=== PATIENT | female | born 1940 | race Caucasian/White ===

== ENCOUNTER 2016-11-22 14:02 | Observation (INO) | payer MEDICARE, OTHER ==
--- NOTE | 2016-11-22 15:00 | ER Document Report ---
ED Medical Screen (RME) - General Chief Complaint: Chest Pain > 30 Stated Complaint: PAIN LEFT ELBOW Notes: This 76-year-old O2 dependent COPD patient comes emergency room complaining of left elbow pain that started yesterday without injury, and anterior inferior chest pain on the breast bone today. The anterior chest pain is made worse with deep breath. Her primary care provider is Dr. Swenson and her automobile carpets molder is Dr. Ayon. On exam the inferior sternum area is tender to palpate. The left elbow radial head seems to be quite tender. There is some swelling and discoloration to the lateral elbow. TRAVEL OUTSIDE OF THE [place] IN LAST 30 DAYS: No - Related Data Allergies/Adverse Reactions: halothane [From Fluothane] Allergy (Severe, Verified 11/22/16 14:19) Severe liver damage ciprofloxacin [From Cipro] Allergy (Intermediate, Verified 11/22/16 14:19) Rash, itch amoxicillin Adverse Reaction (Verified 11/22/16 14:55) Past Medical History - Past Medical History Cardiac Medical History: Reports: Hx Hypertension, Hx Peripheral Vascular Disease Denies: Hx Heart Murmur Pulmonary Medical History: Reports: Hx Asthma, Hx COPD Denies: Hx Respiratory Failure, Hx Sleep Apnea, Hx Tuberculosis Neurological Medical History: Reports: 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) Renal/ Medical History: Denies: Hx Peritoneal Dialysis GI Medical History: Reports: Hx Gastroesophageal Reflux Disease, Hx Hepatitis - FROM [place] Musculoskeltal Medical History: Reports Hx Arthritis - osteo Psychiatric Medical History: Denies: Hx Depression Traumatic Medical History: Reports: Hx Fractures - RIGHT HAND Infectious Medical History: Reports: Hx Hepatitis - FROM [place] Past Surgical History: Reports: Hx Appendectomy, Hx Cholecystectomy, Hx Hysterectomy, Hx Urinary Tract Surgery - Bladder tack, Hx Vascular Surgery - Angioplasty left leg - Immunizations Immunizations up to date: Yes Hx Diphtheria, Pertussis, Tetanus Vaccination: Yes Physical Exam - Vital signs Vitals: Temp Pulse Resp BP Pulse Ox 98.3 F 93 20 171/80 H 93 11/22/16 14:21 11/22/16 14:21 11/22/16 14:21 11/22/16 14:21 11/22/16 14:21 Course - Vital Signs Vital signs: Temp Pulse Resp BP Pulse Ox 98.3 F 93 20 171/80 H 93 11/22/16 14:21 11/22/16 14:21 11/22/16 14:21 11/22/16 14:21 11/22/16 14:21
[2016-11-22 15:33] LABS: ABSOLUTE BASOPHILS # (AUTO) 0.1 10^3/uL (0.0-0.2); ABSOLUTE EOSINOPHILS # (AUTO) 0.1 10^3/uL (0.0-0.6); ABSOLUTE LYMPHOCYTES (AUTO) 0.9 10^3/uL (0.5-4.7); ABSOLUTE MONOCYTES (AUTO) 1.3 10^3/uL (0.1-1.4); ABSOLUTE NEUT (AUTO) 14.4 10^3/uL (1.7-8.2); BASOPHILS % (AUTO) 0.4 % (0-2); EOSINOPHILS % (AUTO) 0.7 % (0-6); HEMATOCRIT 37.6 % (36.0-47.0); HEMOGLOBIN 12.3 g/dL (12.0-15.5); HGB HCT DIFFERENCE -0.7; LYMPHOCYTES % (AUTO) 5.2 % (13-45); MEAN CORPUSCULAR HEMOGLOBIN 32.6 pg (27.0-33.4); MEAN CORPUSCULAR HGB CONC 32.8 g/dL (32.0-36.0); MEAN CORPUSCULAR VOLUME 99 fl (80-97); MONOCYTES % (AUTO) 7.6 % (3-13); RED BLOOD COUNT 3.78 10^6/uL (3.72-5.28); RED CELL DISTRIBUTION WIDTH 12.3 % (11.5-14.0); SEGMENTED NEUTROPHILS % (AUTO) 86.1 % (42-78); WHITE BLOOD COUNT 16.7 10^3/uL (4.0-10.5)
[2016-11-22 15:38] LABS: APPEARANCE,URINE CLEAR; BILIRUBIN,URINE NEGATIVE (NEGATIVE); GLUCOSE, URINE NEGATIVE (NEGATIVE); KETONES,URINE NEGATIVE (NEGATIVE); LEUKOCYTE ESTERASE,URINE NEGATIVE (NEGATIVE); NITRITE,URINE NEGATIVE (NEGATIVE); PROTEIN,URINE NEGATIVE (NEGATIVE); URINE SPECIFIC GRAVITY 1.004; UROBILINOGEN,URINE NEGATIVE mg/dL (<2.0)
[2016-11-22 15:44] LABS: ALANINE AMINOTRANSFERASE 41 U/L (9-52); ALBUMIN 4.4 g/dL (3.5-5.0); ALKALINE PHOSPHATASE 80 U/L (38-126); ANION GAP 12 (5-19); ASPARTATE AMINO TRANSFERASE 33 U/L (14-36); BILIRUBIN,DIRECT 0.1 mg/dL (0.0-0.4); BILIRUBIN,TOTAL 0.4 mg/dL (0.2-1.3); BLOOD UREA NITROGEN 26 mg/dL (7-20); CALCIUM 9.6 mg/dL (8.4-10.2); CARBON DIOXIDE 35 mmol/L (22-30); CHLORIDE 96 mmol/L (98-107); CREATINE KINASE 92 U/L (30-135); CREATININE RESULT 0.74 mg/dL (0.52-1.25); GLUCOSE 89 mg/dL (75-110); POTASSIUM 4.7 mmol/L (3.6-5.0); SODIUM 142.7 mmol/L (137-145)
[2016-11-22 15:56] LABS: CREATINE KINASE MB 7.38 ng/mL (<4.55)
[2016-11-22 16:11] LABS: TROPONIN I 0.059 ng/mL
--- NOTE | 2016-11-22 16:11 | ER Document Report ---
ED Cardiac - General Chief Complaint: Chest Pain > 30 Stated Complaint: PAIN LEFT ELBOW Mode of Arrival: Ambulatory Information source: Patient TRAVEL OUTSIDE OF THE [place] IN LAST 30 DAYS: No - HPI Patient complains to provider of: Chest pain, Other - Left elbow pain Notes: Patient also complains of left elbow pain for the last 2 days. She states that she had no injury has pain in the left elbow worse with any sort of movement. She denies any redness, fever, swelling. She denies any numbness tingling or weakness down the arm. Patient also states that she's had substernal chest pain that sharp worse with deep breath that started earlier today. She does report feeling slightly more short of breath than normal. The patient has an extensive history with COPD she is currently on continuous O2. She has a history of CAD as well as mitral valve prolapse/regurg. She tells me that she saw , her top bottom attaching machine operator yesterday for follow-up for a previous stress test. Stress test was abnormal, therefore they are going to be sending her to another facility to have a cardiac catheter performed. No leg pain or swelling at this time. She denies any history of DVT or PE. She is not on blood thinners at this time. She has a history of paroxysmal intermittent atrial fibrillation, she is currently in sinus. No fever or cough. - Related Data Allergies/Adverse Reactions: halothane [From Fluothane] Allergy (Severe, Verified 11/22/16 14:19) Severe liver damage ciprofloxacin [From Cipro] Allergy (Intermediate, Verified 11/22/16 14:19) Rash, itch amoxicillin Adverse Reaction (Verified 11/22/16 14:55) Past Medical History - Social History Smoking Status: Unknown if Ever Smoked Family History: Malignancy - FATHER HAD LUNG CANCER, Other - SIB AND CHILD WITH ASTHMA Patient has suicidal ideation: No Patient has homicidal ideation: No - Past Medical History Cardiac Medical History: Reports: Hx Hypertension, Hx Peripheral Vascular Disease Denies: Hx Heart Murmur Pulmonary Medical History: Reports: Hx Asthma, Hx COPD Denies: Hx Respiratory Failure, Hx Sleep Apnea, Hx Tuberculosis Neurological Medical History: Reports: 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) Renal/ Medical History: Denies: Hx Peritoneal Dialysis GI Medical History: Reports: Hx Gastroesophageal Reflux Disease, Hx Hepatitis - FROM [place] Musculoskeltal Medical History: Reports Hx Arthritis - osteo Psychiatric Medical History: Denies: Hx Depression Traumatic Medical History: Reports: Hx Fractures - RIGHT HAND Infectious Medical History: Reports: Hx Hepatitis - FROM [place] Past Surgical History: Reports: Hx Appendectomy, Hx Cholecystectomy, Hx Hysterectomy, Hx Urinary Tract Surgery - Bladder tack, Hx Vascular Surgery - Angioplasty left leg - Immunizations Immunizations up to date: Yes Hx Diphtheria, Pertussis, Tetanus Vaccination: Yes Hx Pneumococcal Vaccination: 05/20/08 Review of Systems - Review of Systems -: Yes All other systems reviewed and negative Physical Exam - Vital signs Vitals: Temp Pulse Resp BP Pulse Ox 98.3 F 93 20 171/80 H 93 11/22/16 14:21 11/22/16 14:21 11/22/16 14:21 11/22/16 14:21 11/22/16 14:21 - General General appearance: Appears well, Alert - HEENT Head: Normocephalic, Atraumatic Eyes: Normal Pupils: PERRL Ears: Normal Mouth/Lips: Normal Mucous membranes: Normal - Respiratory Respiratory status: No respiratory distress Breath sounds: Wheezing - Few scattered expiratory. No: Rhonchi, Stridor Chest palpation: Normal - Cardiovascular Rhythm: Regular Heart sounds: Normal auscultation Murmur: No Normal capillary refill: Yes - Abdominal Inspection: Normal Distension: No distension Bowel sounds: Normal Tenderness: Nontender Organomegaly: No organomegaly - Back Back: Normal, Nontender - Extremities General upper extremity: Normal inspection, Nontender, Normal color, Normal ROM , Normal temperature General lower extremity: Normal inspection, Nontender, Normal color, Normal ROM , Normal temperature, Normal weight bearing. No: Tender, Edema - Neurological Neuro grossly intact: Yes Cognition: Normal Orientation: AAOx4 Marco Coma Scale Eye Opening: Spontaneous Marco Coma Scale Verbal: Oriented Marco Coma Scale Motor: Obeys Commands [place] Coma Scale Total: 15 Speech: Normal Motor strength normal: LUE, RUE, LLE, RLE Sensory: Normal - Psychological Associated symptoms: Normal affect, Normal mood - Skin Skin Temperature: Warm Skin Moisture: Dry Skin Color: Normal Course - Re-evaluation Re-evalutation: 11/22/16 18:[address] Lehman the patient's top bottom attaching machine operator. He would like a nitroglycerin trial here, and would like the patient admitted to the hospitalist for rule out. Patient will be given nitroglycerin at this time, have attempted to contact the hospitalist, at this time they are not taking admissions in the night hospitalist will contact me after 7 PM. 11/22/16 19:[address] Vences the hospitalist, he reviewed the patient's case and has accepted her as an admission. She will be admitted to telemetry arms for chest pain rule out. She remains stable at this time. - Vital Signs Vital signs: Temp Pulse Resp BP Pulse Ox 98.3 F 93 20 171/80 H 93 11/22/16 14:21 11/22/16 14:21 11/22/16 14:21 11/22/16 14:21 11/22/16 14:21 - Laboratory Result Diagrams: 11/22/16 15:15 11/22/16 15:15 Laboratory results interpreted by me: 11/22/16 11/22/16 11/22/16 15:15 15:15 15:15 WBC 16.7 H MCV 99 H Seg Neutrophils % 86.1 H Lymphocytes % 5.2 L Absolute Neutrophils 14.4 H D-Dimer Chloride 96 L Carbon Dioxide 35 H BUN 26 H CK-MB (CK-2) 7.38 H NT-Pro-B Natriuret Pep 11/22/16 11/22/16 15:15 15:15 WBC MCV Seg Neutrophils % Lymphocytes % Absolute Neutrophils D-Dimer 0.75 H Chloride Carbon Dioxide BUN CK-MB (CK-2) NT-Pro-B Natriuret Pep 3950 H - EKG Interpretation by Wi EKG shows normal: Sinus rhythm Rate: Normal [place]/QRS: RBBB, LPHB/LPFB When compared to previous EKG there are: No significant change Discharge - Discharge Clinical Impression: Shortness of breath Chest pain Qualifiers: Chest pain type: unspecified Qualified Code(s): R07.9 - Chest pain, unspecified Condition: Stable Disposition: ADMITTED OBSERVATION Admitting Provider: Vangie Unit Admitted: Telemetry
[2016-11-22] MEDS ORDERED: NITROGLYCERIN 0.4 MG/TAB 25 TAB/BOTTLE SL PRN (18:29)
[2016-11-22] MEDS ORDERED: ASPIRIN 81 MG TABLET, CHEWABLE PO ONE (18:29)
[2016-11-22] MEDS ORDERED: IPRATROPIUM/ALBUTEROL 0.5-2.5 MG/3 ML AMPUL NEB ONE (18:54)
[2016-11-22] MEDS ORDERED: IPRATROPIUM/ALBUTEROL 0.5-2.5 MG/3 ML AMPUL NEB PRN (20:45)
[2016-11-22] MEDS ORDERED: ACETAMINOPHEN 325 MG TABLET PO PRN (20:52)
[2016-11-22] MEDS ORDERED: PREDNISONE 5 MG TABLET PO ONE (21:00)
--- NOTE | 2016-11-22 21:10 | PDOC H&P ---
History of Present Illness Admission Date/PCP: 11/22/16 20:[address] Gabo SINGH Patient complains of: lt elbow pain, cp History of Present Illness: MIKEL CHOPRA is a 76 year old female, with known peripheral vascular disease, having undergone right lower extremity angioplasty, cerebrovascular disease, having undergone previous right carotid endarterectomy, and with a recent abnormal stress test, with supervisor insecticide reportedly planning in the near future to send patient for heart catheterization, who presents to the emergency room for evaluation of a 2 day history of intermittent mild left elbow pain, worse with any movement. No pain at present. No trauma to joint. Also noted the onset of lower substernal sharp chest pain earlier today, worse with deep breath. No fever or cough. No history of DVT or pulmonary embolus. Prior to my being called, the emergency room physician did discuss with her supervisor insecticide, who agreed it patient should be placed in observation bed for chest pain rule out protocol. 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 No obstructive sleep apnea. Chronic mild intermittent back pain, without recent change in same. Patient has been discussed with emergency room physician who evaluated the patient. . Laboratory results are listed in [facility] and are reviewed. X-ray summary results are listed below, with full report(s) reviewed. . EKG reviewed. And compared to tracing from June 14 of last year. Social history/personal habits: . Lives with son. Retired. No tobacco use for 6 years. No alcohol or illicit drug use. Allergies/adverse reactions are listed in [facility] and are reviewed. Home medications Home medications initially autopopulated into Seen may not accurately reflect patient's true medications, dosages, and/or frequencies. Unfortunately, patient uncertain of all her medications/dosages/frequencies. REVIEW OF SYSTEMS: Constitutional: No fever or chills. Eyes: Wears glasses. ENT: No swallowing problems or complaints. No hearing problems or complaints. Pulmonary: See history and present illness. Cardiovascular: See history and present illness. Gastrointestinal: No current complaints, including nausea or vomiting. Skin: No current complaints, including rashes. Hematologic: Easy bruising. Neurologic: No current complaints, including numbness or tingling. Musculoskeletal: See history and present illness. Joint pain from arthritis. Psychiatric: Mild Anxiety Endocrine: No current complaints, including polyuria. Genitourinary: No current complaints, including dysuria. PHYSICAL EXAMINATION: 5 feet 2 inches tall. 44.8 kg. BMI 18.1 kg/m. Temperature 98.3. Blood pressure 198/86. Pulse 92 and regular. 99% saturation on 2 L oxygen per nasal cannula. Thin otherwise well-developed though chronically ill-appearing female who appears perhaps a bit older than her stated age. Smiling pleasant awake alert and cooperative. No obvious distress other than perhaps mildly anxious. Skin is warm and dry. No grossly obvious evidence of rash in areas of skin examined. No subcutaneous nodules palpated. Scattered mild subcutaneous ecchymoses on upper extremities. ENT: Hearing grossly normal to normal conversation. Tongue midline on protrusion pink and slightly moist. Eyes: No scleral icterus. Pupils equal and reactive to light at 4 mm. [place] conjunctivae. Neck is supple and nontender to gentle active range of motion and palpation. Midline trachea. No palpable thyroid nodule mass enlargement or tenderness. Lymphatic: No palpable cervical or clavicular nodes. Neck and lymphatic exams limited by patient body habitus. Psychiatric: Reasonable insight into acute and chronic medical issues. Oriented to time location and why here. Lungs: Auscultation reveals clear and equal breath sounds bilaterally. No use of accessory respiratory muscles. Cardiovascular: Heart regular rate and rhythm, without gallop murmur or rub. No carotid or abdominal aortic bruits. No ankle or pedal edema. Faintly palpable dorsalis pedis pulses. Abdomen: soft, slightly, distended nontender with positive bowel sounds. Unable to adequately evaluate abdomen for masses or organomegaly due to distention. Upper abdominal compression does not reproduce her lower substernal chest pain, but compression of her lower medial anterior right chest wall does. Extremities: Feet are warm and dry. No calf tenderness to compression. No grossly obvious visual evidence of calf swelling. Gentle manipulation of lower extremities fails to reveal any obvious evidence of injury or instability to knees hips or ankles. Gentle active range of motion of left elbow reveals only minimal discomfort. No outward evidence of effusion. Neurologic: Moves upper extremities grossly normally. Patellar reflexes absent. Absent Babinski. Light touch is intact at feet. Dorsiflexion and plantarflexion of feet 5 / 5 and symmetric. Past Medical History Cardiac Medical History: Reports: Hypertension, Peripheral Vascular Disease, Other - Cerebrovascular disease, status post right carotid endarterectomy. Denies: DVT, Myocardial Infarction, Hyperlipidema, Pulmonary Embolism, Heart Murmur Pulmonary Medical History: Reports: Asthma, Chronic Obstructive Pulmonary Disease (COPD) Denies: Respiratory Failure, Sleep Apnea, Tuberculosis Neurological Medical History: Reports: Other - History of TIA. Denies: Hemorrhagic CVA, Ischemic CVA, Seizures Endocrine Medical History: Denies: Diabetes Mellitus Type 1, Diabetes Mellitus Type 2, Hyperthyroidism, Hypothyroidism Renal/ Medical History: Reports: Other - Occasional urinary tract infection. GI Medical History: Reports: Gastroesophageal Reflux Disease, Hepatitis - FROM [place] Denies: Cirrhosis Musculoskeltal Medical History: Reports: Arthritis - osteo Skin Medical History: Reports: None Psychiatric Medical History: Reports: General Anxiety Disorder Denies: Alcohol Dependency, Depression, Substance Abuse, Tobacco Dependency Hematology: Reports: Anemia, Other - Easy bruising. Denies: Hemophilia, Sickle Cell Disease Infectious Medical History: Reports: Clostridium Difficile - History of Denies: Methicillin-Resistant Staph Aureus Past Surgical History Past Surgical History: Reports: Appendectomy, Carotid Endarterectomy - Right, Cholecystectomy, Hysterectomy, Vascular Surgery - Angioplasty right leg Denies: Amputation Social History Information Source: Patient, Emergency Med Personnel, [facility] Records Lives with: Family Smoking Status: Former Smoker Frequency of Alcohol Use: None Hx Recreational Drug Use: No Drugs: None Hx Prescription Drug Abuse: No - Advance Directive Resuscitation Status: Do Not Resuscitate - Implications of DO NOT RESUSCITATE/ DO NOT INTUBATE status discussed with [patient]. Discussed in layperson's terms. Implications understood. [ Patient ] is the health care decision maker. [Patient] conversation is lucid and appropriate. [Patient] desires DO NOT RESUSCITATE/DO NOT INTUBATE status. Will honor [patient] wishes. Surrogate healthcare decision maker:: Son Family History Family History: Malignancy - FATHER HAD LUNG CANCER, Other - SIB AND CHILD WITH ASTHMA Parental Family History Reviewed: Yes Children Family History Reviewed: Yes Sibling(s) Family History Reviewed.: Yes Medication/Allergy Home Medications: Lisinopril 10 mg PO BID 08/14/13 Multivitamin [Multivitamins] 1 tab PO DAILY 08/14/13 Sennosides/Docusate Sodium [Eql Stool Softener-Stim Lax Tb] 1 tab PO DAILY PRN 08/14/13 Albuterol Sulfate [Proair HFA] 2 puff IH Q4 PRN 05/26/14 Budesonide/Formoterol Fumarate [Symbicort HFA 160-4.5 mcg Inhaler 6 gm] 2 puff IH Q12 05/26/14 Codeine/Carisoprodol/Aspirin [Sflfkxdozswk-Kewdyav-Jkwnue Tb] 1 tab PO Q6H PRN 05/26/14 Loratadine [Claritin] 10 mg PO DAILY 06/06/14 Ipratropium/Albuterol Sulfate [Duoneb 3 ml Ampul] 3 ml NEB RTQID 10/24/15 Febuxostat [Uloric 40 mg Tablet] 40 mg PO DAILY 03/02/16 Nystatin [Mycostatin 745358 Unit/1 ml Susp 60 ml Btl] 1 ml PO QID 03/02/16 Alprazolam [Xanax 0.25 mg Tablet] 0.25 mg PO Q12HP PRN #20 tablet 03/05/16 Diltiazem HCl [Cardizem Cd 120 mg Capsule] 120 mg PO DAILY #30 cap.sr.24h Levofloxacin [Levaquin 500 mg Tablet] 500 mg PO DAILY #6 tablet 03/05/16 Diltiazem HCl [Diltiazem 24Hr Cd] 120 mg PO DAILY 04/20/16 Acetaminophen [Tylenol 325 mg Tablet] 650 mg PO Q4HP PRN tablet 04/22/16 Azithromycin [Zithromax 250 mg Tablet] 250 mg PO DAILY #5 tablet 04/22/16 Ipratropium/Albuterol Sulfate [Duoneb 3 ml Ampul] 3 ml [facility] RTQ4HP PRN #30 vial.neb 04/22/16 Ipratropium/Albuterol Sulfate [Duoneb 3 ml Ampul] 3 ml [facility] RTQ4HP PRN #30 vial.neb 04/22/16 Prednisone [Deltasone 20 mg Tablet] 20 mg PO ASDIR PRN #8 tablet 04/22/16 Pantoprazole Sodium [Protonix] 40 mg PO DAILY #30 tablet. 07/05/16 Allergies/Adverse Reactions: halothane [From Fluothane] Allergy (Severe, Verified 11/22/16 14:19) Severe liver damage ciprofloxacin [From Cipro] Allergy (Intermediate, Verified 11/22/16 14:19) Rash, itch amoxicillin Adverse Reaction (Verified 11/22/16 14:55) Physical Exam Vital Signs: Temp Pulse Resp BP Pulse Ox 98.3 F 93 17 173/80 H 98 11/22/16 14:21 11/22/16 14:21 11/22/16 20:16 11/22/16 20:16 11/22/16 20:16 Results Impressions: Chest X-Ray 11/22/16 14:45 IMPRESSION: No acute infiltrates. No pleural effusion or pneumothorax. Cardiomegaly T9 and T12 subacute compression deformities Elbow X-Ray 11/22/16 14:45 IMPRESSION: NEGATIVE STUDY OF THE LEFT ELBOW. NO RADIOGRAPHIC EVIDENCE OF ACUTE INJURY. Chest/Abdomen CTA 11/22/16 16:53 IMPRESSION: NO PULMONARY EMBOLI. ACUTE/ SUBACUTE T12 VERTEBRAL BODY COMPRESSION FRACTURE AND CHRONIC APPEARING T9 VERTEBRAL BODY COMPRESSION FRACTURE NOT PRESENT ON PRIOR CT. CORRELATE WITH BACK PAIN. ADDITIONAL CHRONIC CHANGES ABOVE. Assessment & Plan - Diagnosis (1) Abnormal stress test Is this a current diagnosis for this admission?: Yes (2) DNR (do not resuscitate) Is this a current diagnosis for this admission?: Yes (3) Left elbow pain Is this a current diagnosis for this admission?: YesPlan: Does not appear to be clinically significant. When necessary pain medication. (4) Leukocytosis Qualifiers: Leukocytosis type: unspecified Qualified Code(s): D72.829 - Elevated white blood cell count, unspecified Plan: Uncertain source or significance. Repeat CBC with differential. (5) Precordial chest pain Is this a current diagnosis for this admission?: YesPlan: Likely musculoskeletal, but given patient's recent abnormal stress test, and per emergency room physician discussion with her supervisor insecticide a short time ago, Patient will be placed in observation bed under chest pain protocol. Patient understands to notify staff should chest pain recur in particular, if a different type chest pain develops. Serial [troponin's] . Repeat EKG. lipid panel. [I have strongly encouraged patient not to get out of bed without notifying staff, to avoid a fall with injury.] Knee high SCDs for DVT prophylaxis. [Along with subcutaneous [heparin]]. Impression and plans were discussed with [patient], who concurs. Time spent in evaluation and management of patient: 61 minutes. (6) COPD (chronic obstructive pulmonary disease) Qualifiers: Chronic bronchitis type: unspecified Is this a current diagnosis for this admission?: YesPlan: No evidence of exacerbation of same.Resume home medications as appropriate once these have been determined and reviewed. When necessary Nae's. (7) Oxygen dependent Is this a current diagnosis for this admission?: Yes (8) Steroid dependent Is this a current diagnosis for this admission?: Yes
[2016-11-22] MEDS: OXYCODONE HCL IR 5 MG TABLET PO PRN (22:01)
[2016-11-23] MEDS: HEPARIN SOD (PORCINE) 5,000 UNIT/ML 1 ML SYRINGE SUBCUT SCH ×2 (02:55→09:16)
[2016-11-23 03:37] LABS: ABSOLUTE BASOPHILS # (AUTO) 0.1 10^3/uL (0.0-0.2); ABSOLUTE EOSINOPHILS # (AUTO) 0.2 10^3/uL (0.0-0.6); ABSOLUTE MONOCYTES (AUTO) 1.4 10^3/uL (0.1-1.4); BASOPHILS % (AUTO) 0.4 % (0-2); EOSINOPHILS % (AUTO) 1.1 % (0-6); HEMATOCRIT 36.9 % (36.0-47.0); HEMOGLOBIN 12.2 g/dL (12.0-15.5); HGB HCT DIFFERENCE -0.3; LYMPHOCYTES % (AUTO) 5.4 % (13-45); MEAN CORPUSCULAR HEMOGLOBIN 32.8 pg (27.0-33.4); MEAN CORPUSCULAR HGB CONC 33.2 g/dL (32.0-36.0); MEAN CORPUSCULAR VOLUME 99 fl (80-97); MONOCYTES % (AUTO) 7.8 % (3-13); RED BLOOD COUNT 3.73 10^6/uL (3.72-5.28); RED CELL DISTRIBUTION WIDTH 12.1 % (11.5-14.0); SEGMENTED NEUTROPHILS % (AUTO) 85.3 % (42-78); WHITE BLOOD COUNT 17.6 10^3/uL (4.0-10.5)
[2016-11-23 03:48] LABS: CHOLESTEROL 230.95 mg/dL (0-200); Direct HDL 94 mg/dL (>40); TRIGLYCERIDES 150 mg/dL (<150)
[2016-11-23 04:00] LABS: DIRECT LDL 100 mg/dL (<100)
[2016-11-23] MEDS: OXYCODONE HCL IR 5 MG TABLET PO PRN (08:02)
[2016-11-23 08:55] VITALS: BP 179/85
[2016-11-23] MEDS ORDERED: ASPIRIN 81 MG TABLET, ENT COATED PO SCH (10:00)
[2016-11-23] MEDS ORDERED: DOCUSATE SODIUM 100 MG CAPSULE PO SCH (10:00)
[2016-11-23] MEDS ORDERED: PREDNISONE 5 MG TABLET PO SCH (10:00)
--- NOTE | 2016-11-23 15:44 | EKG REPORT ---
SEVERITY:- ABNORMAL ECG - SINUS RHYTHM IRBBB AND LPFB : Confirmed by: Belkys Freitas MD 23-Nov-2016 15:42:44
--- NOTE | 2016-11-23 15:44 | EKG REPORT ---
SEVERITY:- ABNORMAL ECG - SINUS RHYTHM ATRIAL PREMATURE COMPLEX IVCD, CONSIDER ATYPICAL RBBB PROBABLE ANTEROSEPTAL INFARCT, AGE INDETERM : Confirmed by: Belkys Freitas MD 23-Nov-2016 15:42:36
--- NOTE | 2016-11-23 15:55 | PDOC DISCHARGE SUMMARY ---
General - Admit/Disc Date/PCP Admission Date/Primary Care Provider: 11/22/16 20:50 ELIECER RAMIREZ MD Discharge Date: 11/23/16 - Discharge Diagnosis (1) Precordial chest pain Is this a current diagnosis for this admission?: YesSummary: Her pain is completely reproducible on exam with palpation and deep inspiration. Her cardiac markers are flat and under the threshold for acute MN. Her EKG shows no ischemic changes, in fact no change when compared to prior EKGs as far back as 2015. CT scan showed an acute or subacute T12 20% compression fracture that may contribute to some of her symptoms as well. I believe this is musculoskeletal in nature and she could be safely discharged back in the care of her primary care provider. She is in agreement with this treatment plan. She expresses no concerns to [facility] today about going home. (2) Abnormal stress test Is this a current diagnosis for this admission?: YesSummary: Dr. Beck is managing this as an outpatient, considering referral to his colleagues at [facility] for elective heart at some point in the near future. We'll defer to his expertise in this matter. (3) Left elbow pain Is this a current diagnosis for this admission?: YesSummary: Likely arthritic pain and unrelated to the above. Follow-up with PCP in one week. - Additional Information Resuscitation Status: Do Not Resuscitate - Implications of DO NOT RESUSCITATE/ DO NOT INTUBATE status discussed with [patient]. Discussed in layperson's terms. Implications understood. [ Patient ] is the health care decision maker. [Patient] conversation is lucid and appropriate. [Patient] desires DO NOT RESUSCITATE/DO NOT INTUBATE status. Will honor [patient] wishes. Discharge Diet: Cardiac Discharge Activity: Activity As Tolerated, Slowly Increase Activity Home Medications: Acetaminophen [Tylenol 325 mg Tablet] 650 mg PO Q4HP PRN 11/23/16 Albuterol Sulfate [Proair Hfa] 2 puff IH Q4HP PRN 11/23/16 Budesonide/Formoterol Fumarate [Symbicort Hfa 160-4.5 Mcg Inhaler 6 gm] 2 puff IH Q12 11/23/16 Furosemide [Lasix] 20 mg PO DAILY 11/23/16 Hydrocodone/Acetaminophen [[place]adelia 5-325 mg Tablet] 1 tab PO Q8HP PRN 11/23/16 Ipratropium/Albuterol Sulfate [Duoneb 3 ml Ampul] 3 ml NEB RTQID 11/23/16 Lisinopril [Prinivil 10 mg Tablet] 10 mg PO QHS 11/23/16 Loratadine [Claritin 10 mg Tablet] 10 mg PO DAILY 11/23/16 Metoprolol Succinate [Toprol Xl 50 mg Tab.sr] 50 mg PO DAILY 11/23/16 Multivitamin [Daily Multiple Vitamin] 1 each PO DAILY 11/23/16 Pantoprazole Sodium [Protonix] 40 mg PO DAILY 11/23/16 Prednisone [Deltasone 5 mg Tablet] 5 mg PO BID 11/23/16 Sennosides/Docusate 8.6-50 mg [Senna Plus Tablet] 1 tab PO DAILYP PRN 11/23/16 Spironolactone [Aldactone 25 mg Tablet] 25 mg PO DAILY 11/23/16 History of Present Illness Patient complains of: Left elbow pain and precordial chest pain History of Present Illness: MIKEL CHOPRA is a 76 year old female presents to the emergency room for evaluation of a 2 day history of intermittent mild left elbow pain, worse with any movement. Hospital Course Hospital Course: MIKEL CHOPRA is a 76 year old female, with known peripheral vascular disease, having undergone right lower extremity angioplasty, cerebrovascular disease, having undergone previous right carotid endarterectomy, and with a recent abnormal stress test, with oil dispenser reportedly planning in the near future to send patient for heart catheterization, who presents to the emergency room for evaluation of a 2 day history of intermittent mild left elbow pain, worse with any movement. No pain at present. No trauma to joint. Also noted the onset of lower substernal sharp chest pain earlier today, worse with deep breath. No fever or cough. No history of DVT or pulmonary embolus. Prior to my being called, the emergency room physician did discuss with her oil dispenser, who agreed it patient should be placed in observation bed for chest pain rule out protocol. 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 No obstructive sleep apnea. Chronic mild intermittent back pain, without recent change in same. Evaluation failed to reveal any evidence of acute myocardial ischemia, serial cardiac enzymes were nondiagnostic, repeat EKGs were unchanged from previous and perhaps most importantly her symptoms are completely reproducible on exam and with deep inspiration argue against cardiac ischemia. 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 She is already being followed and managed by her primary oil dispenser as an outpatient and closely followed by her PCP, as I see no clear clinical evidence to support myocardial ischemia and a strong suspicion for musculoskeletal source I believe she is stable for discharge home. All of her findings were discussed at the bedside and she asked several excellent questions answered to the best of my ability, she is in agreement with the treatment plan to go home and expresses no concerns about doing so at this time. Physical Exam Vital Signs: Temp Pulse Resp BP Pulse Ox 98.2 F 86 20 179/85 H 97 11/23/16 10:10 11/23/16 10:10 11/23/16 10:10 11/23/16 10:10 11/23/16 10:10 Intake & Output 11/22/16 11/23/16 11/24/16 06:59 06:59 06:59 Intake Total 6 240 Output Total 500 100 Balance -494 140 EXAM GENERAL: NAD; well developed, thin; alert and oriented to person, place, time, situation HEENT: normocephalic, atraumatic; no conjunctival injection, no scleral icterus ; oral mucosa moist; RESPIRATORY: no accessory muscle use, no increased WOB, good air entry bilaterally; no wheezes, rales, rhonchi; bilateral inspiratory crackles CARDIO: no JVD; no systolic murmur; no tachycardia; xiphoid process distal portion of the sternum tender to palpation GI: soft; nondistended; normal bowel sounds; no rebound, rigidity, guarding; no tenderness to palpation of the epigastrium VASCULAR: no abdominal bruit; no pallor; 2+ radial; normal capillary refill EXTREMITIES: no calf tender; no palpable cords in calf; no clubbing, cyanosis , pedal edema PSYCH: normal affect, normal mood SKIN: warm; moist; no petechiae; no telengectasias; no jaundice; Results Laboratory Results: 11/23/16 03:15 11/23/16 11/23/16 03:15 03:15 WBC 17.6 H RBC 3.73 Hgb 12.2 Hct 36.9 MCV 99 H MCH 32.8 MCHC 33.2 RDW 12.1 Plt Count 263 Seg Neutrophils % 85.3 H Lymphocytes % 5.4 L Monocytes % 7.8 Eosinophils % 1.1 Basophils % 0.4 Absolute Neutrophils 15.0 H Absolute Lymphocytes 1.0 Absolute Monocytes 1.4 Absolute Eosinophils 0.2 Absolute Basophils 0.1 Triglycerides 150 Cholesterol 230.95 H LDL Cholesterol Direct 100 VLDL Cholesterol 30.0 HDL Cholesterol 94 11/22/16 11/23/16 21:05 03:15 Troponin I 0.067 0.066 Impressions: Chest X-Ray 11/22/16 14:45 IMPRESSION: No acute infiltrates. No pleural effusion or pneumothorax. Cardiomegaly T9 and T12 subacute compression deformities Elbow X-Ray 11/22/16 14:45 IMPRESSION: NEGATIVE STUDY OF THE LEFT ELBOW. NO RADIOGRAPHIC EVIDENCE OF ACUTE INJURY. Chest/Abdomen CTA 11/22/16 16:53 IMPRESSION: NO PULMONARY EMBOLI. ACUTE/ SUBACUTE T12 VERTEBRAL BODY COMPRESSION FRACTURE AND CHRONIC APPEARING T9 VERTEBRAL BODY COMPRESSION FRACTURE NOT PRESENT ON PRIOR CT. CORRELATE WITH BACK PAIN. ADDITIONAL CHRONIC CHANGES ABOVE. Qualifiers PATEINT BEING DISCHARGED WITH ANY OF THE FOLLOWING DIAGNOSIS?: No VTE patient discharged on overlapping Therapy?: No Reason(s) for not prescribing Overlap Therapy:: Not indicated Plan Discharge Plan: Discharge home and follow-up with PCP and primary oil dispenser in 1 week for further recommendations. Return to the emergency department for escalating symptoms. Time Spent: Greater than 30 Minutes
== END 2016-11-23 11:34 | disposition home or self-care (01) ==
LOC: ER 14:02 → EH 20:08 → UNDOADMOB 20:08 → EH 20:50 → 4S 23:30
PROVIDERS: ADMIT Family Medicine; ATTEND Family Medicine
DX: R07.2 Precordial pain (principal); D72.829 Elevated white blood cell count, unspecified; R94.39 Abnormal result of other cardiovascular function study; M25.522 Pain in left elbow; I73.9 Peripheral vascular disease, unspecified; J44.9 Chronic obstructive pulmonary disease, unspecified; I10 Essential (primary) hypertension; J45.909 Unspecified asthma, uncomplicated; Z87.891 Personal history of nicotine dependence; Z99.81 Dependence on supplemental oxygen; Z66 Do not resuscitate; Z79.52 Long term (current) use of systemic steroids
CPT/HCPCS: 93005 ×2; 94640; 99285; 36415 ×2; 82553; 82550; 85025 ×2; 80053; 81001; 84484 ×2; 85379; 80061; 83880; 71020; 73080; 71275; 93010 ×2; G0378 ×2; A9270 ×9; J1644; J7512; J7620

== ENCOUNTER 2016-12-07 15:50 | Emergency (ER) | payer MEDICARE, OTHER ==
--- NOTE | 2016-12-07 17:59 | ER Document Report ---
ED Medical Screen (RME) - General Chief Complaint: Edema Stated Complaint: POST SURGICAL WOUND DRAINAGE Notes: 76-year-old female patient was admitted here on 11/22/2016 discharge following day for chest pain. She ultimately went to [facility] were a cardiac catheter was attempted but the femoral vessel may have been injured. She was then sent to [facility]. She ultimately had what sounds like a graft placed from the femoral region to below the knee. This was done on 11/30/2016. She now complains of increased swelling to the leg and blisters with yellow fluid on the foot. I have greeted and performed a rapid initial assessment of this patient. A comprehensive ED assessment and evaluation of the patient, analysis of test results and completion of the medical decision making process will be conducted by additional ED providers. TRAVEL OUTSIDE OF THE [place] IN LAST 30 DAYS: No - Related Data Allergies/Adverse Reactions: halothane [From Fluothane] Allergy (Severe, Verified 12/07/16 17:50) Severe liver damage ciprofloxacin [From Cipro] Allergy (Intermediate, Verified 12/07/16 17:50) Rash, itch amoxicillin Adverse Reaction (Verified 12/07/16 17:50) Past Medical History - Past Medical History Cardiac Medical History: Reports: Hx Hypertension, Hx Peripheral Vascular Disease Denies: Hx DVT, Hx Heart Attack, Hx Hypercholesterolemia, Hx Pulmonary Embolism, Hx Heart Murmur Pulmonary Medical History: Reports: Hx Asthma, Hx COPD Denies: Hx Respiratory Failure, Hx Sleep Apnea, Hx Tuberculosis Neurological Medical History: Reports: 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). Denies: Hx Seizures Endocrine Medical History: Denies: Hx Diabetes Mellitus Type 1, Hx Diabetes Mellitus Type 2, Hx Hyperthyroidism, Hx Hypothyroidism Renal/ Medical History: Denies: Hx Peritoneal Dialysis GI Medical History: Reports: Hx Gastroesophageal Reflux Disease, Hx Hepatitis - FROM [place]. Denies: Hx Cirrhosis Musculoskeltal Medical History: Reports Hx Arthritis - osteo Psychiatric Medical History: Denies: Hx Depression Traumatic Medical History: Reports: Hx Fractures - RIGHT HAND Infectious Medical History: Reports: Hx C-Diff - History of, Hx Hepatitis - FROM [place]. Denies: Hx MRSA Past Surgical History: Reports: Hx Appendectomy, Hx Carotid Endarterectomy - Right, Hx Cholecystectomy, Hx Hysterectomy, Hx Urinary Tract Surgery - Bladder tack, Hx Vascular Surgery - Angioplasty right leg - Immunizations Immunizations up to date: Yes Hx Diphtheria, Pertussis, Tetanus Vaccination: Yes Physical Exam - Vital signs Vitals: Temp Pulse Resp BP Pulse Ox 98.8 F 98 24 H 103/70 92 12/07/16 16:11 12/07/16 16:11 12/07/16 16:11 12/07/16 16:11 12/07/16 16:11 Course - Vital Signs Vital signs: Temp Pulse Resp BP Pulse Ox 98.8 F 98 24 H 103/70 92 12/07/16 16:11 12/07/16 16:11 12/07/16 16:11 12/07/16 16:11 12/07/16 16:11
[2016-12-07 18:35] LABS: ABSOLUTE EOSINOPHILS # (AUTO) 0.3 10^3/uL (0.0-0.6); ABSOLUTE MONOCYTES (AUTO) 1.1 10^3/uL (0.1-1.4); ABSOLUTE NEUT (AUTO) 12.3 10^3/uL (1.7-8.2); BASOPHILS % (AUTO) 0.2 % (0-2); HEMATOCRIT 31.7 % (36.0-47.0); HEMOGLOBIN 10.5 g/dL (12.0-15.5); HGB HCT DIFFERENCE -0.2; LYMPHOCYTES % (AUTO) 6.8 % (13-45); MEAN CORPUSCULAR HEMOGLOBIN 32.1 pg (27.0-33.4); MEAN CORPUSCULAR VOLUME 97 fl (80-97); MONOCYTES % (AUTO) 7.7 % (3-13); RED BLOOD COUNT 3.27 10^6/uL (3.72-5.28); RED CELL DISTRIBUTION WIDTH 13.1 % (11.5-14.0); SEGMENTED NEUTROPHILS % (AUTO) 83.3 % (42-78); WHITE BLOOD COUNT 14.7 10^3/uL (4.0-10.5)
[2016-12-07 18:38] LABS: APPEARANCE,URINE CLOUDY; BILIRUBIN,URINE NEGATIVE (NEGATIVE); GLUCOSE, URINE NEGATIVE (NEGATIVE); KETONES,URINE NEGATIVE (NEGATIVE); LEUKOCYTE ESTERASE,URINE LARGE (NEGATIVE); NITRITE,URINE POSITIVE (NEGATIVE); PROTEIN,URINE NEGATIVE (NEGATIVE); UROBILINOGEN,URINE NEGATIVE mg/dL (<2.0)
[2016-12-07 18:53] LABS: ALANINE AMINOTRANSFERASE 41 U/L (9-52); ALBUMIN 4.1 g/dL (3.5-5.0); ALKALINE PHOSPHATASE 93 U/L (38-126); ANION GAP 14 (5-19); ASPARTATE AMINO TRANSFERASE 46 U/L (14-36); BILIRUBIN,DIRECT 0.4 mg/dL (0.0-0.4); BLOOD UREA NITROGEN 21 mg/dL (7-20); CALCIUM 9.2 mg/dL (8.4-10.2); CARBON DIOXIDE 34 mmol/L (22-30); CHLORIDE 95 mmol/L (98-107); CREATININE RESULT 0.78 mg/dL (0.52-1.25); GLUCOSE 104 mg/dL (75-110); POTASSIUM 4.4 mmol/L (3.6-5.0); SODIUM 142.6 mmol/L (137-145); TOTAL PROTEIN 6.7 g/dL (6.3-8.2)
--- NOTE | 2016-12-07 20:14 | ER Document Report ---
ED General - General Chief Complaint: Edema Stated Complaint: POST SURGICAL WOUND DRAINAGE Notes: Patient is a 76-year-old female who recently had a cardiac catheterization with a femoral access point who subsequently had a lacerated femoral artery requring a surgical graft placement who presents with increased swelling and blistering of her distal left lower extremity. States that she had a clear blister appear on the top of her left foot which she lanced with a pair of scissors. However when clear yellowish fluid began to continue to ooze from the area she came to the emergency department for further assessment. She has not contacted her vascular surgeon. Denies any significant pain to the area. Nothing improves or worsens her symptoms. Denies any fever or constitutional symptoms. TRAVEL OUTSIDE OF THE [place] IN LAST 30 DAYS: No - Related Data Allergies/Adverse Reactions: halothane [From Fluothane] Allergy (Severe, Verified 12/07/16 17:50) Severe liver damage ciprofloxacin [From Cipro] Allergy (Intermediate, Verified 12/07/16 17:50) Rash, itch amoxicillin Adverse Reaction (Verified 12/07/16 17:50) Past Medical History - General Information source: Patient - Social History Smoking Status: Never Smoker Frequency of alcohol use: None Drug Abuse: None Lives with: Family Family History: Malignancy - FATHER HAD LUNG CANCER, Other - SIB AND CHILD WITH ASTHMA Patient has suicidal ideation: No Patient has homicidal ideation: No - Past Medical History Cardiac Medical History: Reports: Hx Hypertension, Hx Peripheral Vascular Disease Denies: Hx DVT, Hx Heart Attack, Hx Hypercholesterolemia, Hx Pulmonary Embolism, Hx Heart Murmur Pulmonary Medical History: Reports: Hx Asthma, Hx COPD Denies: Hx Respiratory Failure, Hx Sleep Apnea, Hx Tuberculosis Neurological Medical History: Reports: 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). Denies: Hx Seizures Endocrine Medical History: Denies: Hx Diabetes Mellitus Type 1, Hx Diabetes Mellitus Type 2, Hx Hyperthyroidism, Hx Hypothyroidism Renal/ Medical History: Denies: Hx Peritoneal Dialysis GI Medical History: Reports: Hx Gastroesophageal Reflux Disease, Hx Hepatitis - FROM [place]. Denies: Hx Cirrhosis Musculoskeltal Medical History: Reports Hx Arthritis - osteo Psychiatric Medical History: Denies: Hx Depression Traumatic Medical History: Reports: Hx Fractures - RIGHT HAND Infectious Medical History: Reports: Hx C-Diff - History of, Hx Hepatitis - FROM [place]. Denies: Hx MRSA Past Surgical History: Reports: Hx Appendectomy, Hx Carotid Endarterectomy - Right, Hx Cholecystectomy, Hx Hysterectomy, Hx Urinary Tract Surgery - Bladder tack, Hx Vascular Surgery - Angioplasty right leg - Immunizations Immunizations up to date: Yes Hx Diphtheria, Pertussis, Tetanus Vaccination: Yes Hx Pneumococcal Vaccination: 05/20/08 Review of Systems - Review of Systems Notes: Constitutional: Negative for fever. HENT: Negative for sore throat. Eyes: Negative for visual changes. Cardiovascular: Negative for chest pain. Respiratory: Negative for shortness of breath. Gastrointestinal: Negative for abdominal pain, vomiting or diarrhea. Genitourinary: Negative for dysuria. Musculoskeletal: Positive for leg edema on the left Skin: Negative for rash. Neurological: Negative for headaches, weakness or numbness. 10 point ROS negative except as marked above and in HPI. Physical Exam - Vital signs Vitals: Temp Pulse Resp BP Pulse Ox 98.8 F 98 24 H 103/70 92 12/07/16 16:11 12/07/16 16:11 12/07/16 16:11 12/07/16 16:11 12/07/16 16:11 Interpretation: Tachypneic Notes: PHYSICAL EXAMINATION: GENERAL: Well-appearing, well-nourished and in no acute distress. HEAD: Atraumatic, normocephalic. EYES: Pupils equal round and reactive to light, extraocular movements intact, sclera anicteric, conjunctiva are normal. ENT: nares patent, oropharynx clear without exudates. Moist mucous membranes. NECK: Normal range of motion, supple without lymphadenopathy LUNGS: Breath sounds clear to auscultation bilaterally and equal. No wheezes rales or rhonchi. HEART: Regular rate and rhythm without murmurs ABDOMEN: Soft, nontender, normoactive bowel sounds. No guarding, no rebound. No masses appreciated. EXTREMITIES: There is 4+ pitting edema in the distal left lower extremity below the knee. There is a surgical incision over the lateral aspect of the distal left lower extremity does have a small amount of serous drainage. There is a drained blister over the dorsal surface left foot. The left foot is cool relative to the right. NEUROLOGICAL: No focal neurological deficits. Moves all extremities spontaneously and on command. PSYCH: Normal mood, normal affect. SKIN: Warm, Dry, normal turgor, no rashes or lesions noted. Course - Re-evaluation Re-evalutation: 12/07/16 20:13 Presentation is overall somewhat worrisome for decreased arterial blood flow to the left lower extremity after what appears to be a femoral arterial graft in the setting of an arterial injury during cardiac catheterization. Patient does have significant coolness to the extremity which failed reports was not present at time of discharge from [facility]. I'm not able to palpate a dorsalis pedis pulse on the patient does have sensation and motor function intact in the extremity. Will proceed with an arterial and venous ultrasound to evaluate the degree of arterial blood flow and reassess. 12/07/16 22:18 Arterial ultrasound shows appropriate flow and continued patency of the graft. Patient has continued to be well in appearance and in no distress. I have asked her to follow closely with her vascular surgeon regarding her increased edema and inquire as to whether or not compression stockings would be acceptable as a believe this would provide therapeutic relief it would not cause a complication with her surgery.At this time will discharge with return precautions and follow-up recommendations. Verbal discharge instructions given a the bedside and opportunity for questions given. Medication warnings reviewed. Patient is in agreement with this plan and has verbalized understanding of return precautions and the need for primary care follow-up in the next 24-72 hours. - Vital Signs Vital signs: Temp Pulse Resp BP Pulse Ox 98.7 F 94 16 135/60 H 97 12/07/16 22:43 12/07/16 22:43 12/07/16 22:43 12/07/16 22:43 12/07/16 22:43 - Laboratory Result Diagrams: 12/07/16 18:10 12/07/16 18:10 Laboratory results interpreted by me: 12/07/16 12/07/16 12/07/16 17:40 18:10 18:10 WBC 14.7 H RBC 3.27 L Hgb 10.5 L Hct 31.7 L Seg Neutrophils % 83.3 H Lymphocytes % 6.8 L Absolute Neutrophils 12.3 H Chloride 95 L Carbon Dioxide 34 H BUN 21 H AST 46 H Urine Blood SMALL H Urine Nitrite POSITIVE H Ur Leukocyte Esterase LARGE H Urine Ascorbic Acid 40 H - Diagnostic Test Radiology reviewed: Reports reviewed Discharge - Discharge Clinical Impression: Edema of left lower extremity Condition: Good Disposition: HOME, SELF-CARE Additional Instructions: Your arterial ultrasound today shows that your graft is normal and you have good blood flow to your leg. Please call the vascular surgery clinic at [facility] tomorrow and ask whether or not a compression stocking would be acceptable as this would likely help with the swelling in your leg. Please keep the area on the top of your foot clean and dressed. Apply a bacitracin ointment to the area and then dressed with gauze twice daily. Please return to emergency department immediately if you have rapidly worsening pain in your foot, pus coming out of the wound on the top of your foot, fever of greater than 100.4F, spreading redness from the foot, or any other symptoms that are worrisome to you. Referrals: ELIECER RAMIREZ MD [Primary Care Provider] - Follow up as needed
[2016-12-07 23:10] VITALS: BP 135/60
--- NOTE | 2016-12-08 07:54 | XCELERA REPORT ---
[address] [id number] Lower Extremity Arterial Evaluation Name: MIKEL CHOPRA Age: 76 yrs Gender: Female : 1940 Patient Status: Emergency Patient Location: ER Study Date: 12/07/2016 09:02 PM Procedure: A color flow and duplex scan of the lower extremity arteries was performed on the left with velocity and waveform anaylsis. Reason For Study: eval arterial blood flow to e Ordering Physician: LUDIVINA ZHAO Performed By: Karina Ferrer Measurements and Calculations Right Left CONSERVATION SPECIALIST PSV 70.3 cm/sec Prox PFA PSV 280.6 cm/sec Mid SFA PSV 39.7 cm/sec Dist SFA PSV 66.3 cm/sec Prox Pop A PSV -97.7 cm/sec Dist MILAN PSV 37.5 cm/sec Dist DARKLIGHT INSPECTOR PSV 40.9 cm/sec Benito Pedis PSV 24.2 58.4 cm/sec Right Side Arterial Evaluation Monophasic waceform at the Dorsalis Pedis. Left Side Arterial Evaluation Normal velocity and triphasic waveforms in the Common Femoral artery and in the Femoro Popliteal graft. Biphasic with preserved velocity in the Popliteal and Anterior Tibbial artery. Monophasic in the Posterior Tibial artery. Somewhat diminished velocity at the infrageniculate level. Patent graft with diminished but acceptable flow distally.. Ankle Brachial index was not done.. Interpretation Summary Patent left Femero Popliteal graft with mild hemodynamic residual changes, distally. : LUDIVINA ZHAO > Armand Cullen
== END 2016-12-07 23:10 | disposition home or self-care (01) ==
LOC: ER 15:50
DX: R60.0 Localized edema (principal); I10 Essential (primary) hypertension; J44.9 Chronic obstructive pulmonary disease, unspecified; Z98.890 Other specified postprocedural states; Z88.1 Allergy status to other antibiotic agents; Z88.4 Allergy status to anesthetic agent; Z86.73 Personal history of transient ischemic attack (TIA), and cerebral infarction without residual deficits; R06.82 Tachypnea, not elsewhere classified
CPT/HCPCS: 36415; 80053; 81001; 85025; 87040; 87086; 87088; 87186; 93926; 99284

== ENCOUNTER 2016-12-14 14:10 | Emergency (ER) | payer MEDICARE, OTHER ==
[2016-12-14] MEDS ORDERED: CLINDAMYCIN 900 MG/D5W RTU 50 ML IV ONE (15:24)
--- NOTE | 2016-12-14 15:24 | ER Document Report ---
ED Medical Screen (RME) - General Chief Complaint: Wound Infection Stated Complaint: OPEN WOUND TO LEFT FOOT/LEG Time seen by provider: 15:25 Mode of Arrival: Wheelchair Information source: Patient, Dr. Office Notes: Patient is a 76-year-old female presents the emergency department for left leg swelling and redness. Patient is a history of COPD and pulmonary vascular disease. Patient was seen at [facility] 10 days ago for a catheterization. This was attempted and her iliac was injured. Patient had complained of some increased leg swelling and redness. Dr. Swenson called ahead to refer the patient. Patient is on a blood thinner for her a-fib. Patient also has had some difficulty breathing this morning . TRAVEL OUTSIDE OF THE [place] IN LAST 30 DAYS: No - HPI Onset: Other - see HPI note - Related Data Allergies/Adverse Reactions: halothane [From Fluothane] Allergy (Severe, Verified 12/14/16 15:27) Severe liver damage ciprofloxacin [From Cipro] Allergy (Intermediate, Verified 12/14/16 15:27) Rash, itch amoxicillin Adverse Reaction (Verified 12/14/16 15:27) Past Medical History - Past Medical History Cardiac Medical History: Reports: Hx Hypertension, Hx Peripheral Vascular Disease Denies: Hx DVT, Hx Heart Attack, Hx Hypercholesterolemia, Hx Pulmonary Embolism, Hx Heart Murmur Pulmonary Medical History: Reports: Hx Asthma, Hx COPD Denies: Hx Respiratory Failure, Hx Sleep Apnea, Hx Tuberculosis Neurological Medical History: Reports: 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). Denies: Hx Seizures Endocrine Medical History: Denies: Hx Diabetes Mellitus Type 1, Hx Diabetes Mellitus Type 2, Hx Hyperthyroidism, Hx Hypothyroidism Renal/ Medical History: Denies: Hx Peritoneal Dialysis GI Medical History: Reports: Hx Gastroesophageal Reflux Disease, Hx Hepatitis - FROM [place]. Denies: Hx Cirrhosis Musculoskeltal Medical History: Reports Hx Arthritis - osteo Psychiatric Medical History: Denies: Hx Depression Traumatic Medical History: Reports: Hx Fractures - RIGHT HAND Infectious Medical History: Reports: Hx C-Diff - History of, Hx Hepatitis - FROM [place]. Denies: Hx MRSA Past Surgical History: Reports: Hx Appendectomy, Hx Carotid Endarterectomy - Right, Hx Cholecystectomy, Hx Hysterectomy, Hx Urinary Tract Surgery - Bladder tack, Hx Vascular Surgery - Angioplasty right leg - Immunizations Immunizations up to date: Yes Hx Diphtheria, Pertussis, Tetanus Vaccination: Yes Physical Exam - Vital signs Vitals: Temp Pulse Resp BP Pulse Ox 99.5 F 95 22 H 148/59 H 98 12/14/16 14:22 12/14/16 14:22 12/14/16 14:22 12/14/16 14:22 12/14/16 14:22 Course - Vital Signs Vital signs: Temp Pulse Resp BP Pulse Ox 99.5 F 95 22 H 148/59 H 98 12/14/16 14:22 12/14/16 14:22 12/14/16 14:22 12/14/16 14:22 12/14/16 14:22 - Laboratory Result Diagrams: 12/14/16 16:44 12/14/16 16:44 Laboratory results interpreted by me: 12/14/16 12/14/16 12/14/16 16:44 16:44 16:44 WBC 16.9 H RBC 3.29 L Hgb 10.5 L Hct 32.2 L MCV 98 H RDW 14.3 H Seg Neutrophils % 83.8 H Lymphocytes % 6.5 L Absolute Neutrophils 14.1 H Chloride 97 L Carbon Dioxide 33 H BUN 24 H Est GFR ( Amer) 59 L Est GFR (Non-Af Amer) 49 L Urine Ascorbic Acid 40 H
[2016-12-14 17:00] LABS: ABSOLUTE BASOPHILS # (AUTO) 0.1 10^3/uL (0.0-0.2); ABSOLUTE EOSINOPHILS # (AUTO) 0.2 10^3/uL (0.0-0.6); ABSOLUTE LYMPHOCYTES (AUTO) 1.1 10^3/uL (0.5-4.7); ABSOLUTE MONOCYTES (AUTO) 1.4 10^3/uL (0.1-1.4); ABSOLUTE NEUT (AUTO) 14.1 10^3/uL (1.7-8.2); BASOPHILS % (AUTO) 0.5 % (0-2); EOSINOPHILS % (AUTO) 1.2 % (0-6); HEMATOCRIT 32.2 % (36.0-47.0); HEMOGLOBIN 10.5 g/dL (12.0-15.5); HGB HCT DIFFERENCE -0.7; LYMPHOCYTES % (AUTO) 6.5 % (13-45); MEAN CORPUSCULAR HEMOGLOBIN 31.9 pg (27.0-33.4); MEAN CORPUSCULAR HGB CONC 32.6 g/dL (32.0-36.0); MEAN CORPUSCULAR VOLUME 98 fl (80-97); RED BLOOD COUNT 3.29 10^6/uL (3.72-5.28); RED CELL DISTRIBUTION WIDTH 14.3 % (11.5-14.0); SEGMENTED NEUTROPHILS % (AUTO) 83.8 % (42-78); WHITE BLOOD COUNT 16.9 10^3/uL (4.0-10.5)
[2016-12-14 17:04] LABS: APPEARANCE,URINE CLEAR; BILIRUBIN,URINE NEGATIVE (NEGATIVE); GLUCOSE, URINE NEGATIVE (NEGATIVE); KETONES,URINE NEGATIVE (NEGATIVE); LEUKOCYTE ESTERASE,URINE NEGATIVE (NEGATIVE); NITRITE,URINE NEGATIVE (NEGATIVE); PROTEIN,URINE NEGATIVE (NEGATIVE); URINE SPECIFIC GRAVITY 1.011; UROBILINOGEN,URINE NEGATIVE mg/dL (<2.0)
[2016-12-14 17:10] LABS: ANION GAP 13 (5-19); BLOOD UREA NITROGEN 24 mg/dL (7-20); CALCIUM 9.3 mg/dL (8.4-10.2); CARBON DIOXIDE 33 mmol/L (22-30); CHLORIDE 97 mmol/L (98-107); CREATINE KINASE 88 U/L (30-135); CREATININE RESULT 1.09 mg/dL (0.52-1.25); GLUCOSE 100 mg/dL (75-110); POTASSIUM 4.7 mmol/L (3.6-5.0)
--- NOTE | 2016-12-14 17:38 | ER Document Report ---
ED Extremity Problem, Lower - General Mode of Arrival: Wheelchair Information source: Patient, Friend TRAVEL OUTSIDE OF THE [place] IN LAST 30 DAYS: No - HPI Patient complains to provider of: Pain, Swelling Location: Foot Occurred: Last week Onset/Duration: Persistent Quality of pain: Achy Pain Level: 1 Context: Recent surgery Recent injury: Yes Associated symptoms: Painful ambulation. denies: Chest pain, Unable to bear weight Exacerbated by: Nothing Relieved by: Nothing <SONI STEARNS - Last Filed: 12/14/16 19:36> <PREMA MATSON - Last Filed: 12/14/16 23:08> <VERO HOLM - Last Filed: 12/15/16 00:45> - General Chief Complaint: Wound Infection Stated Complaint: OPEN WOUND TO LEFT FOOT/LEG Notes: Patient had a heart catheterization performed at [facility] on 11/30/2016 in which the femoral artery ruptured. Patient then underwent emergency vascular surgery where she underwent an emergent femoropopliteal bypass procedure. Patient states she has had left lower extremity swelling for the past week that has not improved any. Patient states that she developed a blister to the top of her foot that she popped it with a needle that she says that she sterilized and popped into the dorsal aspect of her foot 3 times. Patient was seen 7 days ago in emergency department for pain and swelling to left foot. Patient had an arterial Doppler study performed on 12/07/2016. Patient denies any fever, increased foot pain or numbness to foot. Patient does state she has of shortness of breath but attributes this to the increased pollen outside. Patient is concerned that she needs an antibiotic for possible foot infection. Patient has had weeping drainage from left foot since the blister opened. ( SONI STEARNS) - Related Data Allergies/Adverse Reactions: halothane [From Fluothane] Allergy (Severe, Verified 12/14/16 15:27) Severe liver damage ciprofloxacin [From Cipro] Allergy (Intermediate, Verified 12/14/16 15:27) Rash, itch amoxicillin Adverse Reaction (Verified 12/14/16 15:27) Past Medical History - General Information source: Patient, Office - Social History Smoking Status: Never Smoker Chew tobacco use (# tins/day): No Frequency of alcohol use: None Drug Abuse: None Lives with: Family Family History: Malignancy - FATHER HAD LUNG CANCER, Other - SIB AND CHILD WITH ASTHMA Patient has suicidal ideation: No Patient has homicidal ideation: No - Past Medical History Cardiac Medical History: Reports: Hx Hypertension, Hx Peripheral Vascular Disease Denies: Hx DVT, Hx Heart Attack, Hx Hypercholesterolemia, Hx Pulmonary Embolism, Hx Heart Murmur Pulmonary Medical History: Reports: Hx Asthma, Hx COPD Denies: Hx Respiratory Failure, Hx Sleep Apnea, Hx Tuberculosis Neurological Medical History: Reports: 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). Denies: Hx Seizures Endocrine Medical History: Denies: Hx Diabetes Mellitus Type 1, Hx Diabetes Mellitus Type 2, Hx Hyperthyroidism, Hx Hypothyroidism Renal/ Medical History: Denies: Hx Peritoneal Dialysis GI Medical History: Reports: Hx Gastroesophageal Reflux Disease, Hx Hepatitis - FROM [place]. Denies: Hx Cirrhosis Musculoskeltal Medical History: Reports Hx Arthritis - osteo Psychiatric Medical History: Denies: Hx Depression Traumatic Medical History: Reports: Hx Fractures - RIGHT HAND Infectious Medical History: Reports: Hx C-Diff - History of, Hx Hepatitis - FROM [place]. Denies: Hx MRSA Past Surgical History: Reports: Hx Appendectomy, Hx Carotid Endarterectomy - Right, Hx Cholecystectomy, Hx Hysterectomy, Hx Urinary Tract Surgery - Bladder tack, Hx Vascular Surgery - Angioplasty right leg - Immunizations Immunizations up to date: Yes Hx Diphtheria, Pertussis, Tetanus Vaccination: Yes Hx Pneumococcal Vaccination: 05/20/08 <SONI STEARNS - Last Filed: 12/14/16 19:36> Review of Systems - Review of Systems Constitutional: No symptoms reported. denies: Fever, Recent illness EENT: No symptoms reported Cardiovascular: Dyspnea. denies: Chest pain Respiratory: Short of breath. denies: Cough, Wheezing Gastrointestinal: No symptoms reported. denies: Nausea, Vomiting Genitourinary: No symptoms reported Female Genitourinary: No symptoms reported Musculoskeletal: Leg swelling - Left lower extremity Skin: Other - Open draining wound to left foot Hematologic/Lymphatic: No symptoms reported Neurological/Psychological: No symptoms reported <SONI STEARNS - Last Filed: 12/14/16 19:36> Physical Exam - General General appearance: Appears well, Alert In distress: None - HEENT Head: Normocephalic Eyes: Normal Nasal: Normal Mouth/Lips: Normal Neck: Normal, Supple. No: Lymphadenopathy - Respiratory Respiratory status: No respiratory distress Chest status: Nontender Breath sounds: Normal. No: Rales, Rhonchi, Stridor, Wheezing Chest palpation: Normal - Cardiovascular Rhythm: Regular Heart sounds: S1 appreciated, S2 appreciated Pulses: Normal: Dorsalis pedis - Abdominal Inspection: Normal Distension: No distension Bowel sounds: Normal Tenderness: Nontender - Back Back: Normal, Nontender. No: CVA tenderness - Extremities General upper extremity: Normal ROM, Other - Abrasion to right antecubital area General lower extremity: Tender, Edema - Mild tenderness to left lower extremity 2+ edema to left lower extremity, Normal ROM, Normal strength Thigh: Other - 2+ edema. No: Tender Knee: No: Tender Calf: Tender - Tenderness along left lateral aspect of left lower leg overlying ecchymotic area, Other - 2+ edema, scattered areas of weeping with yellow crusted drainage Ankle: Edema Foot: Tender, Other - Open, weeping wound to dorsal aspect of left foot, palpable dorsalis pedis pulse - Neurological Neuro grossly intact: Yes Cognition: Normal Marco Coma Scale Eye Opening: Spontaneous Florence Coma Scale Verbal: Oriented Marco Coma Scale Motor: Obeys Commands Marco Coma Scale Total: 15 - Psychological Associated symptoms: Normal affect, Normal mood - Skin Skin Temperature: Warm Location of irregularity: Other - Open wound to dorsal aspect of left foot with a clear yellow drainage that has been weeping from wound Irregularity with: Swelling, Tenderness <SONI STEARNS - Last Filed: 12/14/16 19:36> Course - Laboratory Result Diagrams: 12/14/16 16:44 12/14/16 16:44 <SONI STEARNS - Last Filed: 12/14/16 19:36> - Laboratory Result Diagrams: 12/14/16 16:44 12/14/16 16:44 <PREMA MATSON - Last Filed: 12/14/16 23:08> - Laboratory Result Diagrams: 12/14/16 16:44 12/14/16 16:44 <VERO HOLM - Last Filed: 12/15/16 00:45> - Re-evaluation Re-evalutation: 12/14/16 17:[address] Katz, Dr. Katz to bedside for examination, recommends obtaining venous duplex study. Discussed patient's elevated troponin test. Chest x-ray, EKG and Doppler study added. 12/14/16 18:37 Patient reports that she has chronic shortness of breath and that her shortness of breath is not any different than what she normally has. Patient states that she needs her evening dose of her DuoNeb and her 5 mg prednisone to prevent any worsening of dyspnea symptoms. She denies any chest pain. Patient is requesting meal tray. Patient is currently awaiting Doppler test to be performed. 12/14/16 18:[address] Katz, no additional troponin testing advised at this time. 12/14/16 19:36 Bedside report and handoff given to Erin LAN, Doppler photo optics technician at bedside. (SONI STEARNS) 12/14/16 20:10 Call placed to contact vascular surgery at [facility], patient states she was treated by Dr. Bethea. [facility] called back, and delayed because the vascular surgeon is still in a procedure, pending completion of the procedure for consultation. 12/14/16 22:[address] Mckay. Described to patient's progression, negative venous Doppler results except for hematoma, presentation, complaints, laboratory evaluation. Suspect hematoma is causing some compression of the return and causing secondary swelling of leg, no evidence of DVT, there is open skin over the foot with risk of infection, nonspecific slight uptrend of patient's white blood cell count although patient is on low prednisone dose, patient is afebrile , not complaining of any pain, patient walked on the foot for me and did so without difficulty. Recommendation by Dr. Mckay is for patient to be placed on oral antibiotics and have close follow-up performed with him with return precautions. Patient is in full agreement with this plan and does not want to be admitted or transferred, she states she'll return for any concerning or worsening symptoms which were discussed. Patient has home health who is helping her perform cleaning and dressings reportedly. (PREMA MATSON) 12/15/16 00:44 No evidence for DVT or arterial insufficiency or sepsis. It appears a previous surgery in the proximal hematoma along the surgical site is impairing some of the fluid return out of the leg. No evidence for significant abscess. (VERO HOLM) - Vital Signs Vital signs: Temp Pulse Resp BP Pulse Ox 99.5 F 95 22 H 148/59 H 98 12/14/16 14:22 12/14/16 14:22 12/14/16 14:22 12/14/16 14:22 12/14/16 14:22 - Laboratory Laboratory results interpreted by me: 12/14/16 12/14/16 12/14/16 16:44 16:44 16:44 WBC 16.9 H RBC 3.29 L Hgb 10.5 L Hct 32.2 L MCV 98 H RDW 14.3 H Seg Neutrophils % 83.8 H Lymphocytes % 6.5 L Absolute Neutrophils 14.1 H Chloride 97 L Carbon Dioxide 33 H BUN 24 H Est GFR ( Amer) 59 L Est GFR (Non-Af Amer) 49 L NT-Pro-B Natriuret Pep Urine Ascorbic Acid 40 H 12/14/16 16:44 WBC RBC Hgb Hct MCV RDW Seg Neutrophils % Lymphocytes % Absolute Neutrophils Chloride Carbon Dioxide BUN Est GFR ( Amer) Est GFR (Non-Af Amer) NT-Pro-B Natriuret Pep 3580 H Urine Ascorbic Acid Discharge <SONI STEARNS - Last Filed: 12/14/16 19:36> <PREMA MATSON - Last Filed: 12/14/16 23:08> <VERO HOLM - Last Filed: 12/15/16 00:45> - Discharge Clinical Impression: Left leg swelling Condition: Stable Disposition: HOME, SELF-CARE Additional Instructions: The ultrasound does not show a blood clot in your leg, you have a hematoma which appears to be causing the swelling in your leg. This should resolve with time. Because of the open skin from the blister please take the antibiotic prescribed as directed. Keep a topical antibiotic and dressing over the foot which you change twice a day. Follow-up closely with Dr. Bethea. Return immediately for any signs of worsening symptoms including fever, pain, spreading redness, difficulty breathing, or any other concerning symptoms. Prescriptions: Cephalexin Monohydrate [Keflex 500 mg Capsule] 500 mg PO QID #28 capsule Sulfamethoxazole/Trimethoprim [Bactrim Ds Tablet] 1 each PO BID #14 tablet Referrals: ELIECER RAMIREZ MD [Primary Care Provider] - Follow up as needed
[2016-12-14] MEDS ORDERED: IPRATROPIUM/ALBUTEROL 0.5-2.5 MG/3 ML AMPUL NEB ONE (18:33)
[2016-12-14] MEDS ORDERED: PREDNISONE 5 MG TABLET PO ONE (18:33)
[2016-12-15 01:14] VITALS: BP 150/62
--- NOTE | 2016-12-15 09:40 | EKG REPORT ---
SEVERITY:- ABNORMAL ECG - SINUS RHYTHM RIGHT BUNDLE BRANCH BLOCK CONSIDER ANTEROSEPTAL INFARCT : Confirmed by: Jaydon Huntley 15-Dec-2016 09:39:59
--- NOTE | 2016-12-15 16:31 | XCELERA REPORT ---
[address] [address] Lower Extremity Venous Evaluation Name: MIKEL CHOPRA Age: 76 yrs Gender: Female : 1940 Patient Status: Emergency Patient Location: ER Study Date: 12/14/2016 07:10 PM Procedure: Color flow and duplex imaging of the veins of the left lower extremity as well as the right Common Femoral vein. Reason For Study: LLE swelling, hx recent vasc surgery Ordering Physician: SONI STEARNS Performed By: Lisseth Dash Right Sided Venous Evaluation The right common femoral vein is fully compressible. Spontaneous and phasic flow is present in the right common femoral vein. Left Sided Venous Evaluation Hematoma on left groin, about 4.7 x 4.2 cms, non vascularized. Otherwise normal vessel filling wall to wall, compression and augmentation as well as Colour flow down to the infrageniculate veins. Critical Findings Called in to the ER. Interpretation Summary No duplex evidence of DVT or obstruction in the left lower extremity nor in the right Common Femoral vein. Hematoma in left groin noted. : SONI STEARNS > Armand Cullen
== END 2016-12-15 01:12 | disposition home or self-care (01) ==
LOC: ER 14:10
DX: M79.89 Other specified soft tissue disorders (principal); L76.82 Other postprocedural complications of skin and subcutaneous tissue; R06.02 Shortness of breath
CPT/HCPCS: 93005; 99284; 96365; 36415; 87040; 82550; 85025; 80048; 81001; 84484; 83880; 93971 ×2; 71010; 93010; A9270 ×2; J7512; J7620

== ENCOUNTER 2016-12-19 09:55 | Inpatient (IN) | payer MEDICARE, OTHER ==
--- NOTE | 2016-12-19 11:05 | ER Document Report ---
ED Medical Screen (RME) - General Chief Complaint: Foot Pain Stated Complaint: LEFT FOOT PAIN /POST OP Mode of Arrival: Wheelchair Information source: Patient Notes: Patient presents to the emergency department with left foot infection. Patient has been evaluated here in the emergency department several times since heart cath done at [facility]. She is currently taking 2 antibiotics one for the foot infection and for the UTI. She reports the foot is swollen has increased redness and is warm up to her mid lower leg. Denies fevers. Patient is scheduled for wound care appointment on December 25. TRAVEL OUTSIDE OF THE [place] IN LAST 30 DAYS: No - Related Data Allergies/Adverse Reactions: halothane [From Fluothane] Allergy (Severe, Verified 12/19/16 09:59) Severe liver damage ciprofloxacin [From Cipro] Allergy (Intermediate, Verified 12/19/16 09:59) Rash, itch amoxicillin Adverse Reaction (Verified 12/19/16 09:59) Past Medical History - Past Medical History Cardiac Medical History: Reports: Hx Hypertension, Hx Peripheral Vascular Disease Denies: Hx DVT, Hx Heart Attack, Hx Hypercholesterolemia, Hx Pulmonary Embolism, Hx Heart Murmur Pulmonary Medical History: Reports: Hx Asthma, Hx COPD Denies: Hx Respiratory Failure, Hx Sleep Apnea, Hx Tuberculosis Neurological Medical History: Reports: 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). Denies: Hx Seizures Endocrine Medical History: Denies: Hx Diabetes Mellitus Type 1, Hx Diabetes Mellitus Type 2, Hx Hyperthyroidism, Hx Hypothyroidism Renal/ Medical History: Denies: Hx Peritoneal Dialysis GI Medical History: Reports: Hx Gastroesophageal Reflux Disease, Hx Hepatitis - FROM [place]. Denies: Hx Cirrhosis Musculoskeltal Medical History: Reports Hx Arthritis - osteo Psychiatric Medical History: Denies: Hx Depression Traumatic Medical History: Reports: Hx Fractures - RIGHT HAND Infectious Medical History: Reports: Hx C-Diff - History of, Hx Hepatitis - FROM [place]. Denies: Hx MRSA Past Surgical History: Reports: Hx Appendectomy, Hx Carotid Endarterectomy - Right, Hx Cholecystectomy, Hx Hysterectomy, Hx Urinary Tract Surgery - Bladder tack, Hx Vascular Surgery - Angioplasty right leg - Immunizations Immunizations up to date: Yes Hx Diphtheria, Pertussis, Tetanus Vaccination: Yes Physical Exam - Vital signs Vitals: Temp Pulse Resp BP Pulse Ox 99.1 F 83 20 133/53 H 97 12/19/16 10:06 12/19/16 10:06 12/19/16 10:06 12/19/16 10:06 12/19/16 10:06 Course - Vital Signs Vital signs: Temp Pulse Resp BP Pulse Ox 99.1 F 83 20 133/53 H 97 12/19/16 10:06 12/19/16 10:06 12/19/16 10:06 12/19/16 10:06 12/19/16 10:06
[2016-12-19] MEDS ORDERED: ALBUTEROL SULFATE 0.083% NEB 2.5 MG/3 ML AMPUL NEB ONE (12:56)
[2016-12-19 14:34] LABS: ABSOLUTE BASOPHILS # (AUTO) 0.1 10^3/uL (0.0-0.2); ABSOLUTE EOSINOPHILS # (AUTO) 0.3 10^3/uL (0.0-0.6); ABSOLUTE LYMPHOCYTES (AUTO) 1.3 10^3/uL (0.5-4.7); ABSOLUTE MONOCYTES (AUTO) 1.4 10^3/uL (0.1-1.4); ABSOLUTE NEUT (AUTO) 12.5 10^3/uL (1.7-8.2); BASOPHILS % (AUTO) 0.4 % (0-2); EOSINOPHILS % (AUTO) 1.9 % (0-6); HEMOGLOBIN 10.1 g/dL (12.0-15.5); HGB HCT DIFFERENCE 0.3; LYMPHOCYTES % (AUTO) 8.5 % (13-45); MEAN CORPUSCULAR HEMOGLOBIN 32.6 pg (27.0-33.4); MEAN CORPUSCULAR HGB CONC 33.8 g/dL (32.0-36.0); MEAN CORPUSCULAR VOLUME 97 fl (80-97); MONOCYTES % (AUTO) 8.7 % (3-13); RED BLOOD COUNT 3.11 10^6/uL (3.72-5.28); RED CELL DISTRIBUTION WIDTH 14.2 % (11.5-14.0); SEGMENTED NEUTROPHILS % (AUTO) 80.5 % (42-78); WHITE BLOOD COUNT 15.5 10^3/uL (4.0-10.5)
[2016-12-19] MEDS ORDERED: VANCOMYCIN HCL INJ 1000 MG VIAL IV ONE (14:42)
[2016-12-19 14:51] LABS: ALANINE AMINOTRANSFERASE 40 U/L (9-52); ALBUMIN 4.1 g/dL (3.5-5.0); ALKALINE PHOSPHATASE 86 U/L (38-126); ANION GAP 11 (5-19); ASPARTATE AMINO TRANSFERASE 36 U/L (14-36); BILIRUBIN,DIRECT 0.4 mg/dL (0.0-0.4); BILIRUBIN,TOTAL 0.8 mg/dL (0.2-1.3); BLOOD UREA NITROGEN 33 mg/dL (7-20); CALCIUM 9.8 mg/dL (8.4-10.2); CARBON DIOXIDE 31 mmol/L (22-30); CHLORIDE 95 mmol/L (98-107); CREATININE RESULT 1.75 mg/dL (0.52-1.25); GLUCOSE 86 mg/dL (75-110); POTASSIUM 5.9 mmol/L (3.6-5.0); SODIUM 136.8 mmol/L (137-145); TOTAL PROTEIN 7.1 g/dL (6.3-8.2)
--- NOTE | 2016-12-19 16:01 | ER Document Report ---
ED Extremity Problem, Lower - General Chief Complaint: Foot Pain Stated Complaint: LEFT FOOT PAIN /POST OP Mode of Arrival: Wheelchair Information source: Patient TRAVEL OUTSIDE OF THE [place] IN LAST 30 DAYS: No - HPI Patient complains to provider of: Other - OPEN WOUND ON FOOT, REDNESS & SWELLING OF LEG. Location: Ankle, Foot, Leg Occurred: Other - LAST MONTH Where: Other - DEVELOPED AFTER RE-VASCULARIZATION PROCEDURE Onset/Duration: Gradual Quality of pain: Burning Severity: Mild Context: Recent surgery Recent injury: No Associated symptoms: Painful ambulation. denies: Fever, Sweaty Exacerbated by: Movement Relieved by: Elevation - Related Data Allergies/Adverse Reactions: halothane [From Fluothane] Allergy (Severe, Verified 12/19/16 09:59) Severe liver damage ciprofloxacin [From Cipro] Allergy (Intermediate, Verified 12/19/16 09:59) Rash, itch amoxicillin Adverse Reaction (Verified 12/19/16 09:59) Past Medical History - General Information source: Patient - Social History Smoking Status: Former Smoker Cigarette use (# per day): No Chew tobacco use (# tins/day): No Frequency of alcohol use: None Drug Abuse: None Lives with: Spouse/Significant other Family History: Malignancy - FATHER HAD LUNG CANCER, Other - SIB AND CHILD WITH ASTHMA Patient has suicidal ideation: No Patient has homicidal ideation: No - Past Medical History Cardiac Medical History: Reports: Hx Hypertension, Hx Peripheral Vascular Disease Denies: Hx DVT, Hx Heart Attack, Hx Hypercholesterolemia, Hx Pulmonary Embolism, Hx Heart Murmur Pulmonary Medical History: Reports: Hx Asthma, Hx COPD - O2 DEPENDENT Denies: Hx Respiratory Failure, Hx Sleep Apnea, Hx Tuberculosis Neurological Medical History: Reports: 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). Denies: Hx Seizures Endocrine Medical History: Denies: Hx Diabetes Mellitus Type 1, Hx Diabetes Mellitus Type 2, Hx Hyperthyroidism, Hx Hypothyroidism Renal/ Medical History: Denies: Hx Peritoneal Dialysis GI Medical History: Reports: Hx Gastroesophageal Reflux Disease, Hx Hepatitis - FROM [place]. Denies: Hx Cirrhosis Musculoskeltal Medical History: Reports Hx Arthritis - osteo Psychiatric Medical History: Denies: Hx Depression Traumatic Medical History: Reports: Hx Fractures - RIGHT HAND Infectious Medical History: Reports: Hx C-Diff - History of, Hx Hepatitis - FROM [place]. Denies: Hx MRSA Past Surgical History: Reports: Hx Appendectomy, Hx Carotid Endarterectomy - Right, Hx Cholecystectomy, Hx Hysterectomy, Hx Urinary Tract Surgery - Bladder tack, Hx Vascular Surgery - Angioplasty right leg - Immunizations Immunizations up to date: Yes Hx Diphtheria, Pertussis, Tetanus Vaccination: Yes Hx Pneumococcal Vaccination: 05/20/08 Review of Systems - Review of Systems Constitutional: No symptoms reported. denies: Chills, Fever EENT: No symptoms reported Cardiovascular: No symptoms reported Respiratory: No symptoms reported Gastrointestinal: No symptoms reported Genitourinary: No symptoms reported Female Genitourinary: Post menopausal Musculoskeletal: No symptoms reported Skin: No symptoms reported Neurological/Psychological: No symptoms reported Physical Exam - Vital signs Vitals: Temp Pulse Resp BP Pulse Ox 99.1 F 83 20 133/53 H 97 12/19/16 10:06 12/19/16 10:06 12/19/16 10:06 12/19/16 10:06 12/19/16 10:06 Interpretation: Normal - General General appearance: Appears well, Alert In distress: None - HEENT Head: Normocephalic Eyes: Normal Conjunctiva: Normal Ears: Normal Nasal: Normal Mouth/Lips: Normal Mucous membranes: Normal - Respiratory Respiratory status: No respiratory distress Chest status: Other - KYPHOTIC Breath sounds: Decreased air movement - Cardiovascular Rhythm: Regular Heart sounds: Normal auscultation Murmur: No - Abdominal Inspection: Normal Distension: No distension - Back Back: Normal - Extremities General upper extremity: Normal inspection General lower extremity: No: Normal inspection - R. FOOT, ANKLE, LEG W/ REDNESS , TENDERNESS, AND EDEMA - Neurological Neuro grossly intact: Yes - Psychological Associated symptoms: Normal affect, Normal mood - Skin Skin Temperature: Warm Skin Moisture: Dry Skin Color: Normal Skin Turgor: Elastic Skin irregularity: Lesion - BULLOUS, DORSUM L. FOOT, WEEPING. Course - Vital Signs Vital signs: Temp Pulse Resp BP Pulse Ox 98.1 F 83 21 H 129/58 H 99 12/19/16 17:01 12/19/16 10:06 12/19/16 17:01 12/19/16 17:01 12/19/16 17:01 - Laboratory Result Diagrams: 12/19/16 14:16 12/19/16 14:16 Laboratory results interpreted by me: 12/19/16 12/19/16 14:16 14:16 WBC 15.5 H RBC 3.11 L Hgb 10.1 L Hct 30.0 L RDW 14.2 H Seg Neutrophils % 80.5 H Lymphocytes % 8.5 L Absolute Neutrophils 12.5 H Sodium 136.8 L Potassium 5.9 H Chloride 95 L Carbon Dioxide 31 H BUN 33 H Creatinine 1.75 H Est GFR ( Amer) 34 L Est GFR (Non-Af Amer) 28 L - Consults DR. CHAVEZ Time consulted: 15:50 Consulted provider: will come to ER Discharge - Discharge Clinical Impression: Oxygen dependent Cellulitis Qualifiers: Site of cellulitis: extremity Site of cellulitis of extremity: lower extremity Laterality: left Qualified Code(s): L03.116 - Cellulitis of left lower limb COPD (chronic obstructive pulmonary disease) Qualifiers: COPD type: chronic bronchitis Chronic bronchitis type: unspecified Qualified Code(s): J42 - Unspecified chronic bronchitis Condition: Fair Disposition: ADMITTED INPATIENT Admitting Provider: Hospitalist Unit Admitted: Telemetry
[2016-12-19] MEDS ORDERED: ACETAMINOPHEN 650 MG SUPP.RECT PR PRN (17:37)
[2016-12-19] MEDS ORDERED: NORMAL SALINE 1000 ML 1,000 ML IV PRN (17:37)
[2016-12-19] MEDS ORDERED: ONDANSETRON HCL INJ/PF 4 MG/2 ML SDV IV PRN (17:37)
[2016-12-19] MEDS ORDERED: ERTAPENEM SODIUM INJ 1 GM VIAL IV SCH (17:45)
--- NOTE | 2016-12-19 18:00 | PDOC H&P ---
History of Present Illness Admission Date/PCP: ELIECER RAMIREZ MD Patient complains of: Lower extremity cellulitis History of Present Illness: MIKEL CHOPRA is a 76 year old female, with history of peripheral vascular disease, who underwent vascular surgery in the [facility] several weeks ago after an angiogram on her left groin revealing blockage. 9 days ago the patient started to develop a blister on the left foot with redness noted as well as on the blanco. Patient started to develop wounds with some clear drainage. Patient was seen in the emergency room and was tried on antibiotics. Patient denies any fever but there is pain on the foot. Denies any discoloration other than redness. Patient underwent lower extremity venous Doppler showing no deep venous thrombosis and an arterial Doppler showing patency of the grafts without any occlusion. Patient's wound did not improve and therefore she came back to the hospital where she was noted to have some slight leukocytosis and was referred for admission for failed outpatient treatment. Past Medical History Past Medical History: Medication reconciliation pending verification from the patient's pharmacist. Cardiac Medical History: Reports: Hypertension, Peripheral Vascular Disease Denies: DVT, Myocardial Infarction, Hyperlipidema, Pulmonary Embolism, Heart Murmur Pulmonary Medical History: Reports: Asthma, Chronic Obstructive Pulmonary Disease (COPD) Denies: Respiratory Failure, Sleep Apnea, Tuberculosis Neurological Medical History: Denies: Seizures Endocrine Medical History: Denies: Diabetes Mellitus Type 1, Diabetes Mellitus Type 2, Hyperthyroidism, Hypothyroidism GI Medical History: Reports: Gastroesophageal Reflux Disease, Hepatitis - FROM [place] Denies: Cirrhosis Musculoskeltal Medical History: Reports: Arthritis - osteo Psychiatric Medical History: Denies: Depression Hematology: Reports: Anemia Denies: Hemophilia, Sickle Cell Disease Infectious Medical History: Reports: Clostridium Difficile - History of Denies: Methicillin-Resistant Staph Aureus Past Surgical History Past Surgical History: Reports: Appendectomy, Carotid Endarterectomy - Right, Cholecystectomy, Hysterectomy, Vascular Surgery - Angioplasty right leg Denies: Amputation Social History Information Source: Patient Smoking Status: Never Smoker Frequency of Alcohol Use: None Hx Recreational Drug Use: No Drugs: None Hx Prescription Drug Abuse: No Family History Family History: Malignancy - FATHER HAD LUNG CANCER, Other - SIB AND CHILD WITH ASTHMA Parental Family History Reviewed: Yes Children Family History Reviewed: Yes Sibling(s) Family History Reviewed.: Yes Medication/Allergy Allergies/Adverse Reactions: halothane [From Fluothane] Allergy (Severe, Verified 12/19/16 09:59) Severe liver damage ciprofloxacin [From Cipro] Allergy (Intermediate, Verified 12/19/16 09:59) Rash, itch amoxicillin Adverse Reaction (Verified 12/19/16 09:59) Review of Systems Constitutional: ABSENT: chills, fever(s), headache(s), weight gain, weight loss Eyes: PRESENT: visual disturbances - Chronic this will acutely problems Ears: ABSENT: hearing changes Nose, Mouth, and Throat: ABSENT: mouth pain, sore throat Cardiovascular: PRESENT: edema - On the feet. ABSENT: chest pain, dyspnea on exertion, orthropnea, palpitations Respiratory: PRESENT: cough - Occasional, dyspnea - Chronic on oxygen. ABSENT: hemoptysis Gastrointestinal: ABSENT: abdominal pain, constipation, diarrhea, hematemesis, hematochezia, melena, nausea, vomiting Genitourinary: ABSENT: dysuria, hematuria Musculoskeletal: ABSENT: joint swelling Integumentary: ABSENT: rash, wounds Neurological: ABSENT: abnormal gait, abnormal speech, confusion, dizziness, focal weakness, syncope Psychiatric: ABSENT: anxiety, depression, homidical ideation, suicidal ideation Endocrine: ABSENT: cold intolerance, heat intolerance, polydipsia, polyuria Hematologic/Lymphatic: ABSENT: easy bleeding, easy bruising Physical Exam Vital Signs: Temp Pulse Resp BP Pulse Ox 98.1 F 83 21 H 129/58 H 99 12/19/16 17:01 12/19/16 10:06 12/19/16 17:01 12/19/16 17:01 12/19/16 17:01 Intake & Output 12/18/16 12/19/16 12/20/16 06:59 06:59 06:59 Weight 43.4 kg General appearance: PRESENT: no acute distress, thin Head exam: PRESENT: atraumatic, normocephalic Eye exam: PRESENT: conjunctiva pale, EOMI, PERRLA. ABSENT: scleral icterus Ear exam: PRESENT: normal external ear exam. ABSENT: drainage Mouth exam: PRESENT: moist, neck supple, tongue midline Neck exam: ABSENT: carotid bruit, JVD, lymphadenopathy, thyromegaly Respiratory exam: PRESENT: clear to auscultation brendon. ABSENT: rales, rhonchi, wheezes Cardiovascular exam: PRESENT: RRR. ABSENT: diastolic murmur, rubs, systolic murmur Pulses: PRESENT: normal dorsalis pedis pul Vascular exam: PRESENT: normal capillary refill GI/Abdominal exam: PRESENT: normal bowel sounds, soft. ABSENT: distended, guarding, mass, organolmegaly, rebound, tenderness Rectal exam: PRESENT: deferred Extremities exam: PRESENT: full ROM, pedal edema. ABSENT: calf tenderness, clubbing Neurological exam: PRESENT: alert, awake, oriented to person, oriented to place , oriented to time, oriented to situation Psychiatric exam: PRESENT: appropriate affect, normal mood. ABSENT: homicidal ideation, suicidal ideation Skin exam: PRESENT: dry, rash - Noted on the dorsum of the foot as well as on the blanco on the left side with redness. Patient has a blister on the dorsum of the left foot without any purulent drainage. Patient has an open wound that is dry with scabs on the left blanco without purulent drainage., warm - Equal in both lower extremities. ABSENT: cyanosis Results Laboratory Results: 12/19/16 14:16 12/19/16 14:16 12/19/16 12/19/16 14:16 14:16 WBC 15.5 H RBC 3.11 L Hgb 10.1 L Hct 30.0 L MCV 97 MCH 32.6 MCHC 33.8 RDW 14.2 H Plt Count 367 Seg Neutrophils % 80.5 H Lymphocytes % 8.5 L Monocytes % 8.7 Eosinophils % 1.9 Basophils % 0.4 Absolute Neutrophils 12.5 H Absolute Lymphocytes 1.3 Absolute Monocytes 1.4 Absolute Eosinophils 0.3 Absolute Basophils 0.1 Sodium 136.8 L Potassium 5.9 H Chloride 95 L Carbon Dioxide 31 H Anion Gap 11 BUN 33 H Creatinine 1.75 H Est GFR ( Amer) 34 L Est GFR (Non-Af Amer) 28 L Glucose 86 Calcium 9.8 Total Bilirubin 0.8 AST 36 ALT 40 Alkaline Phosphatase 86 Total Protein 7.1 Albumin 4.1 Assessment & Plan - Diagnosis (1) Lower extremity cellulitis Qualifiers: Laterality: left Qualified Code(s): L03.116 - Cellulitis of left lower limb Is this a current diagnosis for this admission?: Yes (2) Hyperkalemia Is this a current diagnosis for this admission?: Yes (3) Acute renal failure Qualifiers: Acute renal failure type: unspecified Qualified Code(s): N17.9 - Acute kidney failure, unspecified Is this a current diagnosis for this admission?: Yes (4) Anemia of chronic disease Is this a current diagnosis for this admission?: Yes (5) COPD (chronic obstructive pulmonary disease) Qualifiers: Chronic bronchitis type: unspecified Is this a current diagnosis for this admission?: Yes (6) Peripheral vascular disease Is this a current diagnosis for this admission?: Yes (7) Essential hypertension Is this a current diagnosis for this admission?: Yes (8) GERD (gastroesophageal reflux disease) Qualifiers: Esophagitis presence: without esophagitis Qualified Code(s): K21.9 - Gastro-esophageal reflux disease without esophagitis Is this a current diagnosis for this admission?: Yes (9) Anxiety Is this a current diagnosis for this admission?: Yes - Time Time Spent: 30 to 50 Minutes - Plan Summary Plan Summary: Patient will be admitted to telemetry. We will gently hydrate the patient with normal saline. Give Kayexalate. Recheck potassium in the morning. We will consult vascular surgery Dr. Cullen for evaluation of the wound and the leg. Start antibiotic with vancomycin and Invanz intravenously. Wound culture has been sent from the emergency room. DVT prophylaxis with Lovenox will be placed. Continue home oxygen. Further testing depends and the initial evaluation as outlined above.
[2016-12-19] MEDS: PREDNISONE 5 MG TABLET PO SCH (18:22)
[2016-12-19] MEDS: HYDROCODONE/ACETAMINOPHEN 5-325 MG TABLET PO PRN (18:22)
[2016-12-19] MEDS: DOCUSATE SODIUM 100 MG CAPSULE PO SCH (18:23)
[2016-12-19] MEDS: IPRATROPIUM/ALBUTEROL 0.5-2.5 MG/3 ML AMPUL NEB PRN (18:23)
[2016-12-19] MEDS ORDERED: SODIUM POLYSTYRENE SULFONATE 15 GM/60 ML PO ONE (18:30)
[2016-12-19] MEDS ORDERED: ENOXAPARIN SODIUM INJ 30 MG/0.3 ML DISP.SYRIN SUBCUT ONE (19:00)
[2016-12-20] MEDS: ERTAPENEM SODIUM 0.5 GM in NORMAL SALINE 50 ML IV SCH ×2 (00:02→23:58)
[2016-12-20] MEDS: HYDROCODONE/ACETAMINOPHEN 5-325 MG TABLET PO PRN ×2 (00:05→06:26)
[2016-12-20] MEDS: BUDESONIDE/FORMOTEROL 160-4.5 MCG 60 PUFF/6 GM MDI IH SCH ×2 (00:06→22:39)
[2016-12-20] MEDS: LANSOPRAZOLE 30 MG TAB.RAP.DR PO SCH (06:28)
[2016-12-20 07:28] LABS: ABSOLUTE EOSINOPHILS # (AUTO) 0.4 10^3/uL (0.0-0.6); ABSOLUTE LYMPHOCYTES (AUTO) 0.9 10^3/uL (0.5-4.7); ABSOLUTE MONOCYTES (AUTO) 1.1 10^3/uL (0.1-1.4); ABSOLUTE NEUT (AUTO) 8.2 10^3/uL (1.7-8.2); BASOPHILS % (AUTO) 0.4 % (0-2); EOSINOPHILS % (AUTO) 3.5 % (0-6); HEMATOCRIT 26.3 % (36.0-47.0); HEMOGLOBIN 8.9 g/dL (12.0-15.5); HGB HCT DIFFERENCE 0.4; LYMPHOCYTES % (AUTO) 8.2 % (13-45); MEAN CORPUSCULAR HEMOGLOBIN 32.9 pg (27.0-33.4); MEAN CORPUSCULAR HGB CONC 33.9 g/dL (32.0-36.0); MEAN CORPUSCULAR VOLUME 97 fl (80-97); MONOCYTES % (AUTO) 10.1 % (3-13); SEGMENTED NEUTROPHILS % (AUTO) 77.8 % (42-78); WHITE BLOOD COUNT 10.5 10^3/uL (4.0-10.5)
[2016-12-20 08:00] LABS: ANION GAP 9 (5-19); BLOOD UREA NITROGEN 23 mg/dL (7-20); CALCIUM 8.5 mg/dL (8.4-10.2); CARBON DIOXIDE 29 mmol/L (22-30); CHLORIDE 104 mmol/L (98-107); CREATININE RESULT 0.92 mg/dL (0.52-1.25); GLUCOSE 94 mg/dL (75-110); POTASSIUM 4.8 mmol/L (3.6-5.0); SODIUM 142.1 mmol/L (137-145)
[2016-12-20] MEDS ORDERED: ENOXAPARIN SODIUM INJ 40 MG/0.4 ML DISP.SYRIN SUBCUT SCH (08:00)
[2016-12-20] MEDS ORDERED: NORMAL SALINE 1000 ML 1,000 ML IV PRN (08:26)
--- NOTE | 2016-12-20 08:34 | PDOC PROGRESS REPORT ---
Subjective Progress Note for:: 12/20/16 Subjective:: Patient still having some foot pain but not worse. She complains of hip discomfort and stiffness as well. She has diarrhea, denies chills or fever. No shortness of breath, PND or orthopnea, no chest pain. Physical Exam Vital Signs: Temp Pulse Resp BP Pulse Ox 97.8 F 96 14 143/56 H 93 12/20/16 04:00 12/20/16 04:00 12/20/16 06:32 12/20/16 06:32 12/20/16 06:32 General appearance: PRESENT: no acute distress, cooperative, thin Head exam: PRESENT: normocephalic Eye exam: PRESENT: EOMI Mouth exam: PRESENT: moist, neck supple Neck exam: ABSENT: JVD Respiratory exam: PRESENT: clear to auscultation brendon. ABSENT: rhonchi, wheezes Cardiovascular exam: PRESENT: RRR. ABSENT: gallop GI/Abdominal exam: PRESENT: soft. ABSENT: distended, tenderness Extremities exam: PRESENT: other - Left foot cellulitis and redness slightly less. Blister on the dorsum of the foot, and induration w/ scabbing on the left blanco stable. No purulent foul-smelling drainage noted. Neurological exam: PRESENT: alert, awake, oriented to situation Skin exam: PRESENT: dry, warm. ABSENT: cyanosis Results Laboratory Results: 12/20/16 07:08 12/20/16 07:08 12/19/16 12/20/16 12/20/16 21:46 07:08 07:08 WBC 10.5 RBC 2.70 L Hgb 8.9 L Hct 26.3 L MCV 97 MCH 32.9 MCHC 33.9 RDW 14.0 Plt Count 287 Seg Neutrophils % 77.8 Lymphocytes % 8.2 L Monocytes % 10.1 Eosinophils % 3.5 Basophils % 0.4 Absolute Neutrophils 8.2 Absolute Lymphocytes 0.9 Absolute Monocytes 1.1 Absolute Eosinophils 0.4 Absolute Basophils 0.0 Sodium 142.1 Potassium 5.0 4.8 Chloride 104 Carbon Dioxide 29 Anion Gap 9 BUN 23 H Creatinine 0.92 Est GFR ( Amer) > 60 Est GFR (Non-Af Amer) 59 L Glucose 94 Calcium 8.5 Assessment & Plan - Diagnosis (1) Lower extremity cellulitis Qualifiers: Laterality: left Qualified Code(s): L03.116 - Cellulitis of left lower limb Is this a current diagnosis for this admission?: Yes (2) Hyperkalemia Is this a current diagnosis for this admission?: Yes (3) Acute renal failure Qualifiers: Acute renal failure type: unspecified Qualified Code(s): N17.9 - Acute kidney failure, unspecified Is this a current diagnosis for this admission?: Yes (4) Anemia of chronic disease Is this a current diagnosis for this admission?: Yes (5) COPD (chronic obstructive pulmonary disease) Qualifiers: COPD type: chronic bronchitis Chronic bronchitis type: unspecified Qualified Code(s): J42 - Unspecified chronic bronchitis Is this a current diagnosis for this admission?: Yes (6) Peripheral vascular disease Is this a current diagnosis for this admission?: Yes (7) Essential hypertension Is this a current diagnosis for this admission?: Yes (8) GERD (gastroesophageal reflux disease) Qualifiers: Esophagitis presence: without esophagitis Qualified Code(s): K21.9 - Gastro-esophageal reflux disease without esophagitis Is this a current diagnosis for this admission?: Yes (9) Anxiety Is this a current diagnosis for this admission?: Yes - Time Time Spent with patient: 25-34 minutes - Plan Summary Plan Summary: Continue antibiotics. Follow cultures. Awaiting vascular surgery evaluation. We will increase analgesics, try muscle relaxants. IV fluid to be decreased. Discontinue her MARIEL inhibitor and spironolactone due to potassium retention. We will continue to monitor.
[2016-12-20] MEDS: PREDNISONE 5 MG TABLET PO SCH ×2 (09:38→17:27)
[2016-12-20] MEDS: IPRATROPIUM/ALBUTEROL 0.5-2.5 MG/3 ML AMPUL NEB PRN ×2 (09:54→16:22)
[2016-12-20] MEDS ORDERED: VANCOMYCIN HCL INJ 1000 MG VIAL IV SCH (10:00)
[2016-12-20] MEDS: LACTOBACILLUS ACIDOPHILUS 250 MG TAB PO SCH ×2 (10:16→17:27)
[2016-12-20] MEDS: METOPROLOL SUCCINATE 50 MG TAB.SR.24H PO SCH (10:16)
[2016-12-20] MEDS: OXYCODONE HCL IR 5 MG TABLET PO PRN ×2 (10:16→17:28)
[2016-12-20] MEDS: ENOXAPARIN SODIUM INJ 30 MG/0.3 ML DISP.SYRIN SUBCUT SCH (10:17)
[2016-12-20] MEDS: CLOPIDOGREL BISULFATE 75 MG TABLET PO SCH (10:17)
[2016-12-20] MEDS: MINERAL OIL/PETROLATUM,WHITE CREAM 114 GM TP SCH (10:23)
[2016-12-20] MEDS: DOCUSATE SODIUM 100 MG CAPSULE PO SCH ×2 (10:24→17:28)
[2016-12-20] MEDS: METRONIDAZOLE 500 MG TABLET PO SCH ×3 (12:32→23:48)
[2016-12-20] MEDS: VANCOMYCIN HCL 750 MG in DEXTROSE 5%-WATER 250 ML IV SCH (17:28)
--- NOTE | 2016-12-20 18:50 | Progress Note ---
Provider Note Provider Note: Patient reportedly has a living will and wants to be a DO NOT RESUSCITATE, staff verified therefore this will be put and ordered in chart.
[2016-12-20] MEDS: CYCLOBENZAPRINE HCL 10 MG TABLET PO PRN (22:39)
[2016-12-20] MEDS: ATORVASTATIN CALCIUM 40 MG TABLET PO SCH (22:39)
[2016-12-20] MEDS ORDERED: ERTAPENEM SODIUM INJ 1 GM VIAL ONE (23:31)
[2016-12-21] MEDS: OXYCODONE HCL IR 5 MG TABLET PO PRN ×2 (03:16→13:40)
[2016-12-21 04:51] LABS: HEMATOCRIT 25.8 % (36.0-47.0); HEMOGLOBIN 8.8 g/dL (12.0-15.5); HGB HCT DIFFERENCE 0.6; MEAN CORPUSCULAR HEMOGLOBIN 32.7 pg (27.0-33.4); MEAN CORPUSCULAR HGB CONC 34.1 g/dL (32.0-36.0); MEAN CORPUSCULAR VOLUME 96 fl (80-97); RED BLOOD COUNT 2.69 10^6/uL (3.72-5.28); RED CELL DISTRIBUTION WIDTH 13.9 % (11.5-14.0); WHITE BLOOD COUNT 9.1 10^3/uL (4.0-10.5)
[2016-12-21] MEDS: METRONIDAZOLE 500 MG TABLET PO SCH ×3 (06:14→18:15)
[2016-12-21] MEDS: LANSOPRAZOLE 30 MG TAB.RAP.DR PO SCH (06:14)
[2016-12-21] MEDS: IPRATROPIUM/ALBUTEROL 0.5-2.5 MG/3 ML AMPUL NEB PRN ×2 (08:43→15:56)
[2016-12-21] MEDS: ENOXAPARIN SODIUM INJ 30 MG/0.3 ML DISP.SYRIN SUBCUT SCH (08:44)
--- NOTE | 2016-12-21 09:05 | PDOC PROGRESS REPORT ---
Subjective Progress Note for:: 12/21/16 Subjective:: Hip discomfort secondary to the bed. No chills or fever, no nausea or vomiting , no diarrhea. Patient swelling is better. Redness is better. No purulent drainage reported. Patient able to ambulate with some difficulty. She does not want to go to subacute rehabilitation. Physical Exam Vital Signs: Temp Pulse Resp BP Pulse Ox 98.4 F 99 18 127/71 H 99 12/21/16 03:37 12/21/16 08:51 12/21/16 08:51 12/21/16 03:37 12/21/16 08:51 Intake & Output 12/20/16 12/21/16 12/22/16 06:59 06:59 06:59 Intake Total 1410 Output Total 6 Balance 1404 Weight 43.5 kg General appearance: PRESENT: no acute distress, cooperative, thin Head exam: PRESENT: normocephalic Eye exam: PRESENT: EOMI Mouth exam: PRESENT: moist, neck supple Neck exam: ABSENT: JVD Respiratory exam: PRESENT: decreased breath sounds. ABSENT: rhonchi, wheezes Cardiovascular exam: PRESENT: RRR. ABSENT: gallop GI/Abdominal exam: PRESENT: soft. ABSENT: distended Extremities exam: PRESENT: other - Wound Dressings clean and dry Neurological exam: PRESENT: alert, awake, oriented to situation Skin exam: PRESENT: dry, warm. ABSENT: cyanosis Results Laboratory Results: 12/21/16 04:29 12/20/16 07:08 12/21/16 04:29 WBC 9.1 RBC 2.69 L Hgb 8.8 L Hct 25.8 L MCV 96 MCH 32.7 MCHC 34.1 RDW 13.9 Plt Count 239 Assessment & Plan - Diagnosis (1) Lower extremity cellulitis Qualifiers: Laterality: left Qualified Code(s): L03.116 - Cellulitis of left lower limb Is this a current diagnosis for this admission?: Yes (2) Hyperkalemia Is this a current diagnosis for this admission?: Yes (3) Acute renal failure Qualifiers: Acute renal failure type: unspecified Qualified Code(s): N17.9 - Acute kidney failure, unspecified Is this a current diagnosis for this admission?: Yes (4) Anemia of chronic disease Is this a current diagnosis for this admission?: Yes (5) COPD (chronic obstructive pulmonary disease) Qualifiers: COPD type: chronic bronchitis Chronic bronchitis type: unspecified Qualified Code(s): J42 - Unspecified chronic bronchitis Is this a current diagnosis for this admission?: Yes (6) Peripheral vascular disease Is this a current diagnosis for this admission?: Yes (7) Essential hypertension Is this a current diagnosis for this admission?: Yes (8) GERD (gastroesophageal reflux disease) Qualifiers: Esophagitis presence: without esophagitis Qualified Code(s): K21.9 - Gastro-esophageal reflux disease without esophagitis Is this a current diagnosis for this admission?: Yes (9) Anxiety Is this a current diagnosis for this admission?: Yes - Time Time Spent with patient: 15-24 minutes - Plan Summary Plan Summary: Continue current antibiotics. Patient started to respond clinically. We will continue for another 24 hours, and if patient continues to improve probably discharge home in the morning with home health and wound care. We will begin physical therapy.
[2016-12-21] MEDS: CYCLOBENZAPRINE HCL 10 MG TABLET PO PRN (09:42)
[2016-12-21] MEDS: DOCUSATE SODIUM 100 MG CAPSULE PO SCH ×2 (09:44→18:17)
[2016-12-21] MEDS: METOPROLOL SUCCINATE 50 MG TAB.SR.24H PO SCH (09:44)
[2016-12-21] MEDS: PREDNISONE 5 MG TABLET PO SCH ×2 (09:44→18:15)
[2016-12-21] MEDS: LACTOBACILLUS ACIDOPHILUS 250 MG TAB PO SCH ×2 (09:44→18:15)
[2016-12-21] MEDS: CLOPIDOGREL BISULFATE 75 MG TABLET PO SCH (09:44)
[2016-12-21] MEDS: BUDESONIDE/FORMOTEROL 160-4.5 MCG 60 PUFF/6 GM MDI IH SCH ×2 (09:45→21:18)
[2016-12-21] MEDS: MINERAL OIL/PETROLATUM,WHITE CREAM 114 GM TP SCH (09:52)
[2016-12-21] MEDS: CLOTRIMAZOLE 10 MG TROCHE PO SCH ×4 (13:59→21:18)
--- NOTE | 2016-12-21 15:09 | Physician Advisory Note ---
Physician Advisor ProgressNote .: Pursuant to the plan for [facility], I have reviewed the medical record for this patient. Physician Advisor Statement: Please consider documentin. "Anemia of chronic Kidney dz" - have to specify which chronic dz is involved... 2. "mild hyponatremia, likely due to ____" 3. 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 CK
--- NOTE | 2016-12-21 17:28 | PDOC DISCHARGE SUMMARY ---
General - Admit/Disc Date/PCP Admission Date/Primary Care Provider: 12/19/16 17:37 ELIECER RAMIREZ MD Discharge Date: 12/22/16 - Discharge Diagnosis (1) Lower extremity cellulitis Is this a current diagnosis for this admission?: Yes (2) Hyperkalemia Is this a current diagnosis for this admission?: Yes (3) Acute renal failure Is this a current diagnosis for this admission?: Yes (4) Anemia of chronic disease Is this a current diagnosis for this admission?: Yes (5) COPD (chronic obstructive pulmonary disease) Is this a current diagnosis for this admission?: Yes (6) Peripheral vascular disease Is this a current diagnosis for this admission?: Yes (7) Essential hypertension Is this a current diagnosis for this admission?: Yes (8) GERD (gastroesophageal reflux disease) Is this a current diagnosis for this admission?: Yes (9) Anxiety Is this a current diagnosis for this admission?: Yes - Additional Information Discharge Diet: Cardiac - low fat, low salt Discharge Activity: Activity As Tolerated, Balance Activity w/Rest Home Medications: Atorvastatin Calcium [Lipitor 40 mg Tablet] 40 mg PO QHS 12/19/16 Clopidogrel Bisulfate [Plavix 75 mg Tablet] 75 mg PO DAILY 12/19/16 Hydrocodone Bit/Acetaminophen [Hydrocodon-Acetaminophen 5-325] 1 tab PO Q8HP PRN 12/19/16 Ipratropium/Albuterol Sulfate [Duoneb 3 ml Ampul] 3 ml NEB RTQIDP PRN 12/19/16 Metoprolol Succinate [Toprol XL 100 mg Tablet] 100 mg PO Q12 12/19/16 Nitroglycerin [Nitrostat 0.4 mg (1/150 Gr) Tabs 25/Bottle] 1 tab SL Q5MP PRN 10/06 Pantoprazole Sodium [Protonix] 40 mg PO DAILY 12/19/16 Prednisone [Deltasone 5 mg Tablet] 5 mg PO BID 12/19/16 Silver Sulfadiazine [Silvadene 1% Cream 400 gm] 1 applic TP DAILYP PRN 12/19/16 Budesonide/Formoterol Fumarate [Symbicort HFA 160-4.5 mcg Inhaler 6 gm] 2 puff IH Q12 #1 inhaler 12/21/16 Clindamycin HCl [Cleocin 300 mg Capsule] 300 mg PO QID #40 capsule 12/21/16 Clotrimazole [Mycelex 10 mg Carson] 10 mg PO QID #40 carson 12/21/16 Doxycycline Hyclate 100 mg PO BID #20 capsule 12/21/16 Mineral Oil/Petrolatum,White [Eucerin Cream 114 gm] 1 applic TP DAILY 30 Days Additional Information: Home health for physical therapy as well as wound care w/ normal saline cleanse daily covered with 4 x 4 applied Kerlix and secured with Coban dressing. History of Present Illness Patient complains of: Failed outpatient treatment for cellulitis History of Present Illness: MIKEL CHOPRA is a 76 year old female, with history of peripheral vascular disease, who underwent vascular surgery in the [facility] several weeks ago after an angiogram on her left groin revealing blockage. 9 days ago the patient started to develop a blister on the left foot with redness noted as well as on the blanco. Patient started to develop wounds with some clear drainage. Patient was seen in the emergency room and was tried on antibiotics. Patient denies any fever but there is pain on the foot. Denies any discoloration other than redness. Patient underwent lower extremity venous Doppler showing no deep venous thrombosis and an arterial Doppler showing patency of the grafts without any occlusion. Patient's wound did not improve and therefore she came back to the hospital where she was noted to have some slight leukocytosis and was referred for admission for failed outpatient treatment. Hospital Course Hospital Course: The patient was admitted to the medical floor. Patient was started on broad- spectrum antibiotic including vancomycin and Invanz. Cultures were performed including the wound drainage and so far results were negative. Her lower extremity cellulitis improved as well as the swelling. Wound care was instituted, dry 4 x 4's were used to cover the wound with Kerlix and Coban dressings. She was found to have hyperkalemia probably secondary to MARIEL inhibitor and Aldactone and therefore these were discontinued. She was also found to have an elevated creatinine and responded well with IV fluids. Creatinine has normalized. Potassium normalized with administration of Kayexalate. She had recent venous Doppler showing no DVT and likewise arterial Doppler showing patent grafts on the involved extremity. The patient improved. The rest of the hospital stay is unremarkable. Physical Exam Vital Signs: Temp Pulse Resp BP Pulse Ox 97.9 F 99 18 167/76 H 99 12/21/16 08:21 12/21/16 08:51 12/21/16 08:51 12/21/16 08:21 12/21/16 08:51 Intake & Output 12/20/16 12/21/16 12/22/16 06:59 06:59 06:59 Intake Total 1410 Output Total 6 Balance 1404 Weight 43.5 kg General appearance: PRESENT: no acute distress, cooperative, thin Head exam: PRESENT: normocephalic Eye exam: PRESENT: EOMI Mouth exam: PRESENT: moist, neck supple Neck exam: ABSENT: JVD Respiratory exam: PRESENT: decreased breath sounds. ABSENT: rhonchi, wheezes Cardiovascular exam: PRESENT: RRR. ABSENT: gallop GI/Abdominal exam: PRESENT: soft. ABSENT: distended, tenderness Extremities exam: PRESENT: pedal edema - Mild Neurological exam: PRESENT: alert, awake, oriented to situation Skin exam: PRESENT: dry, warm. ABSENT: cyanosis Results Laboratory Results: 12/21/16 04:29 12/20/16 07:08 12/21/16 04:29 WBC 9.1 RBC 2.69 L Hgb 8.8 L Hct 25.8 L MCV 96 MCH 32.7 MCHC 34.1 RDW 13.9 Plt Count 239 Qualifiers PATEINT BEING DISCHARGED WITH ANY OF THE FOLLOWING DIAGNOSIS?: No Plan Discharge Plan: Follow-up with primary care physician in one week. Follow-up with Dr. Armand Cullen in 1-2 weeks. Time Spent: Less than 30 Minutes
[2016-12-21] MEDS ORDERED: VANCOMYCIN HCL 750 MG in DEXTROSE 5%-WATER 250 ML IV SCH (18:00)
[2016-12-21] MEDS: VANCOMYCIN HCL 750 MG in DEXTROSE 5%-WATER 250 ML IV SCH (18:16)
[2016-12-21] MEDS: ATORVASTATIN CALCIUM 40 MG TABLET PO SCH (21:18)
[2016-12-21] MEDS ORDERED: ERTAPENEM SODIUM 1 GM in NORMAL SALINE 50 ML IV SCH (22:00)
[2016-12-22] MEDS: METRONIDAZOLE 500 MG TABLET PO SCH ×3 (00:50→11:39)
[2016-12-22 03:21] VITALS: BP 148/60
[2016-12-22] MEDS: LANSOPRAZOLE 30 MG TAB.RAP.DR PO SCH (06:36)
[2016-12-22] MEDS: ENOXAPARIN SODIUM INJ 30 MG/0.3 ML DISP.SYRIN SUBCUT SCH (10:15)
[2016-12-22] MEDS: BUDESONIDE/FORMOTEROL 160-4.5 MCG 60 PUFF/6 GM MDI IH SCH (10:15)
[2016-12-22] MEDS: MINERAL OIL/PETROLATUM,WHITE CREAM 114 GM TP SCH (10:15)
[2016-12-22] MEDS: LACTOBACILLUS ACIDOPHILUS 250 MG TAB PO SCH (10:16)
[2016-12-22] MEDS: PREDNISONE 5 MG TABLET PO SCH (10:16)
[2016-12-22] MEDS: DOCUSATE SODIUM 100 MG CAPSULE PO SCH (10:16)
[2016-12-22] MEDS: CLOPIDOGREL BISULFATE 75 MG TABLET PO SCH (10:16)
[2016-12-22] MEDS: METOPROLOL SUCCINATE 50 MG TAB.SR.24H PO SCH (10:16)
[2016-12-22] MEDS: CLOTRIMAZOLE 10 MG TROCHE PO SCH (10:17)
--- NOTE | 2016-12-22 12:34 | PDOC PROGRESS REPORT ---
Subjective Progress Note for:: 12/22/16 Subjective:: Patient without complaints. Physical Exam Vital Signs: Temp Pulse Resp BP Pulse Ox 98.1 F 104 H 18 148/60 H 100 12/22/16 08:23 12/22/16 08:23 12/22/16 08:23 12/22/16 08:23 12/22/16 08:23 Intake & Output 12/21/16 12/22/16 12/23/16 06:59 06:59 06:59 Intake Total 1410 2146 Output Total 6 505 Balance 1404 1641 Weight 43.5 kg 44.2 kg General appearance: PRESENT: no acute distress Eye exam: PRESENT: conjunctiva pink. ABSENT: scleral icterus Mouth exam: PRESENT: moist, tongue midline Neck exam: ABSENT: JVD Respiratory exam: PRESENT: clear to auscultation brendon. ABSENT: rales, rhonchi, wheezes Cardiovascular exam: PRESENT: RRR. ABSENT: diastolic murmur, rubs, systolic murmur GI/Abdominal exam: PRESENT: normal bowel sounds, soft. ABSENT: distended, guarding, mass, organolmegaly, rebound, tenderness Extremities exam: PRESENT: other - The patient's foot had a dressing that was removed. There was no erythema but there was some skin breakdown.. ABSENT: calf tenderness, clubbing, pedal edema Neurological exam: PRESENT: alert, awake, oriented to person, oriented to place , oriented to time, oriented to situation, CN II-XII grossly intact. ABSENT: motor sensory deficit Psychiatric exam: PRESENT: appropriate affect Skin exam: PRESENT: other - Patient was a dressing in place on her left foot. The patient's dorsal aspect has an open lesion approximately 3 cm in diameter Results Laboratory Results: 12/21/16 04:29 12/20/16 07:08 Assessment & Plan - Diagnosis (1) Cellulitis Qualifiers: Site of cellulitis: extremity Site of cellulitis of extremity: lower extremity Laterality: left Qualified Code(s): L03.116 - Cellulitis of left lower limb Is this a current diagnosis for this admission?: YesPlan: The patient is improving. We'll continue with local wound care as well as clindamycin. (2) Acute renal failure Qualifiers: Acute renal failure type: unspecified Qualified Code(s): N17.9 - Acute kidney failure, unspecified Is this a current diagnosis for this admission?: YesPlan: Resolved. (3) Anxiety Is this a current diagnosis for this admission?: Yes (4) COPD exacerbation Is this a current diagnosis for this admission?: Yes (5) Essential hypertension Is this a current diagnosis for this admission?: Yes (6) Hyperkalemia Is this a current diagnosis for this admission?: YesPlan: Resolved (7) Peripheral vascular disease Is this a current diagnosis for this admission?: YesPlan: Resolved (8) COPD (chronic obstructive pulmonary disease) Qualifiers: COPD type: chronic bronchitis Chronic bronchitis type: unspecified Qualified Code(s): J42 - Unspecified chronic bronchitis Is this a current diagnosis for this admission?: Yes - Time Time Spent with patient: 25-34 minutes - Plan Summary Plan Summary: Patient is discharged home. Please see discharge summary dictated yesterday by Dr. Olguin for full details.
== END 2016-12-22 12:10 | disposition home health service (06) | DRG 603 ==
LOC: ER 09:55 → EH 17:37 → UNDOADMIN 17:37 → 4S 12-20 14:58
PROC: 3E0F73Z Introduction of Anti-inflammatory into Respiratory Tract, Via Natural or Artificial Opening (ICD-10-PCS; principal; 2016-12-19)
DX: L03.116 Cellulitis of left lower limb (principal); N17.9 Acute kidney failure, unspecified; J44.1 Chronic obstructive pulmonary disease with (acute) exacerbation; E87.5 Hyperkalemia; D63.8 Anemia in other chronic diseases classified elsewhere; I73.9 Peripheral vascular disease, unspecified; I10 Essential (primary) hypertension; K21.9 Gastro-esophageal reflux disease without esophagitis; F41.9 Anxiety disorder, unspecified; M19.90 Unspecified osteoarthritis, unspecified site; Z66 Do not resuscitate; Z90.49 Acquired absence of other specified parts of digestive tract; Z79.899 Other long term (current) drug therapy; Z90.710 Acquired absence of both cervix and uterus; Z88.4 Allergy status to anesthetic agent; Z88.3 Allergy status to other anti-infective agents; Z88.1 Allergy status to other antibiotic agents; Z87.891 Personal history of nicotine dependence; Z86.73 Personal history of transient ischemic attack (TIA), and cerebral infarction without residual deficits; Z99.81 Dependence on supplemental oxygen; Z80.1 Family history of malignant neoplasm of trachea, bronchus and lung; Z82.5 Family history of asthma and other chronic lower respiratory diseases
CPT/HCPCS: 36415; 80048; 80053; 84132; 85025; 85027; 87040; 87070; 87205; 96365; 99285; G8978-GP; G8979-GP; G8980-GP; J1335; J1650; J3370; J3490; J7030; J7060; J7512; J7620

== ENCOUNTER 2017-02-04 01:10 | Emergency (ER) | payer MEDICARE, OTHER ==
--- NOTE | 2017-02-04 01:46 | ER Document Report ---
ED Respiratory Problem - General Stated Complaint: RESPIRATORY DISTRESS Time Seen by Provider: 02/04/17 01:30 Notes: Patient is a 76-year-old female that comes emergency department for chief complaint of difficulty breathing. She states she woke up feeling short of breath, she received a DuoNeb in route by EMS, patient states that she still feels slightly short of breath but improved from before. She denies cough, fever, chest pain. Past medical history of COPD, 2 L oxygen dependence at all times, patient also has CAD and peripheral vascular disease, she is on Plavix, she had a wound VAC on her left leg, she had vascular surgery 6 weeks ago and she is unable to tell me the specifics of this. This was performed in [place]. Patient states she quit smoking 5 years ago. TRAVEL OUTSIDE OF THE [place] IN LAST 30 DAYS: No - Related Data Allergies/Adverse Reactions: halothane [From Fluothane] Allergy (Severe, Verified 12/19/16 09:59) Severe liver damage ciprofloxacin [From Cipro] Allergy (Intermediate, Verified 12/19/16 09:59) Rash, itch amoxicillin Adverse Reaction (Verified 12/19/16 09:59) Past Medical History - General Information source: Patient, Friend - Social History Smoking Status: Former Smoker Frequency of alcohol use: None Drug Abuse: None Lives with: Family Family History: Malignancy - FATHER HAD LUNG CANCER, Other - SIB AND CHILD WITH ASTHMA - Past Medical History Cardiac Medical History: Reports: Hx Hypertension, Hx Peripheral Vascular Disease Denies: Hx DVT, Hx Heart Attack, Hx Hypercholesterolemia, Hx Pulmonary Embolism, Hx Heart Murmur Pulmonary Medical History: Reports: Hx Asthma, Hx COPD - O2 DEPENDENT Denies: Hx Respiratory Failure, Hx Sleep Apnea, Hx Tuberculosis Neurological Medical History: Reports: 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). Denies: Hx Seizures Endocrine Medical History: Denies: Hx Diabetes Mellitus Type 1, Hx Diabetes Mellitus Type 2, Hx Hyperthyroidism, Hx Hypothyroidism Renal/ Medical History: Denies: Hx Peritoneal Dialysis GI Medical History: Reports: Hx Gastroesophageal Reflux Disease, Hx Hepatitis - FROM [place]. Denies: Hx Cirrhosis Musculoskeltal Medical History: Reports Hx Arthritis - osteo Psychiatric Medical History: Denies: Hx Depression Traumatic Medical History: Reports: Hx Fractures - RIGHT HAND Infectious Medical History: Reports: Hx C-Diff - History of, Hx Hepatitis - FROM [place]. Denies: Hx MRSA Past Surgical History: Reports: Hx Appendectomy, Hx Carotid Endarterectomy - Right, Hx Cholecystectomy, Hx Hysterectomy, Hx Urinary Tract Surgery - Bladder tack, Hx Vascular Surgery - Angioplasty right leg - Immunizations Immunizations up to date: Yes Hx Diphtheria, Pertussis, Tetanus Vaccination: Yes Hx Pneumococcal Vaccination: 05/20/08 Review of Systems - Review of Systems Constitutional: No symptoms reported EENT: No symptoms reported Cardiovascular: See HPI Respiratory: See HPI Gastrointestinal: No symptoms reported Genitourinary: No symptoms reported Female Genitourinary: No symptoms reported Musculoskeletal: See HPI Skin: No symptoms reported Hematologic/Lymphatic: No symptoms reported Neurological/Psychological: No symptoms reported Physical Exam - Vital signs Vitals: Pulse Ox 99 02/04/17 01:16 Interpretation: Normal - General General appearance: Appears well, Alert In distress: None - HEENT Head: Normocephalic, Atraumatic Eyes: Normal Pupils: PERRL - Respiratory Respiratory status: No respiratory distress. No: Labored, Retractions, Tachypnea Chest status: Nontender Breath sounds: Decreased air movement, Wheezing - There is some minimal end expiratory wheezing on examination, otherwise unremarkable. No: Nonproductive cough Chest palpation: Normal - Cardiovascular Rhythm: Regular. No: Tachycardia Heart sounds: Normal auscultation, S1 appreciated, S2 appreciated Murmur: Yes - Abdominal Inspection: Normal Distension: No distension Bowel sounds: Normal Tenderness: Nontender. No: Tender - Back Back: Normal, Nontender, Other - Cervical and Thoracic kyphosis which is significant, otherwise unremarkable spinal exam and back exam. No: Tender - Extremities General upper extremity: Normal inspection, Nontender, Normal color, Normal ROM , Normal temperature General lower extremity: Other - Left lower extremity with some scarring medially, there is some swelling of the lower extremity with a wound VAC in place in the distal lateral tibial region. No overt erythema, pulses present, sensation present, lower extremity exam otherwise unremarkable - Neurological Neuro grossly intact: Yes Cognition: Normal Orientation: AAOx4 White Coma Scale Eye Opening: Spontaneous White Coma Scale Verbal: Oriented White Coma Scale Motor: Obeys Commands White Coma Scale Total: 15 Speech: Normal Motor strength normal: LUE, RUE, LLE, RLE Sensory: Normal - Psychological Associated symptoms: Normal affect, Normal mood - Skin Skin Temperature: Warm Skin Moisture: Dry Skin Color: Normal Course - Re-evaluation Re-evalutation: X-ray with no acute abnormality. CBC shows leukocytosis, nonspecific with patient on daily prednisone at 10 mg. No fever. Patient initially hypertensive , this completely resolved on its own. Patient initially with mild expiratory wheezing, this resolved with one treatment. And Solu-Medrol. Venous blood gas showing hypercapnia, however patient has chronic respiratory failure, pH is normal, this is comparable to prior. Troponin indeterminate and very comparable to prior. Because of left lower extremity swelling, history of recent surgery, and sudden onset of shortness of breath CTA performed, shows no pneumonia, no blood clot, no CHF exacerbation. Workup consistent with COPD exacerbation. Discussed in detail with Dr. Peralta. Patient is feeling normal now, she is at her baseline, she is able to walk her normal distance without any increased dyspnea from her baseline, she states she is ready to go home. Because of workup, improvement, current symptoms, patient will be discharged on prednisone to taper back to her daily dose, close follow up recommendations, strict return precautions. Confirmed with Dr. Peralta. Patient states satisfaction and agreement , close friend with her to take her home. - Vital Signs Vital signs: Temp Pulse Resp BP Pulse Ox 98.1 F 17 137/77 H 96 02/04/17 05:21 02/04/17 05:21 02/04/17 05:21 02/04/17 05:21 - Laboratory Result Diagrams: 02/04/17 01:48 02/04/17 01:48 Laboratory results interpreted by me: 02/04/17 02/04/17 02/04/17 01:48 01:48 01:48 WBC 15.0 H RBC 3.46 L Hgb 10.7 L Hct 34.2 L MCV 99 H MCHC 31.4 L RDW 15.0 H Seg Neuts % (Manual) 89 H Lymphocytes % (Manual) 7 L Abs Neuts (Manual) 13.4 H VBG pCO2 66.7 H* VBG HCO3 35.2 H Potassium 5.2 H Carbon Dioxide 35 H BUN 25 H Glucose 137 H AST 38 H CK-MB (CK-2) 02/04/17 01:48 WBC RBC Hgb Hct MCV MCHC RDW Seg Neuts % (Manual) Lymphocytes % (Manual) Abs Neuts (Manual) VBG pCO2 VBG HCO3 Potassium Carbon Dioxide BUN Glucose AST CK-MB (CK-2) 4.86 H Discharge - Discharge Clinical Impression: Shortness of breath, COPD exacerbation Chronic respiratory failure Qualifiers: Respiratory failure complication: hypercapnia Qualified Code(s): J96.12 - Chronic respiratory failure with hypercapnia Condition: Stable Disposition: HOME, SELF-CARE Additional Instructions: No blood clot, pneumonia, fluid, or other abnormalities are seen in the lungs on imaging. This appears to be upper respiratory, increase the prednisone for the next few days as prescribed, follow-up closely with your provider. Return to emergency department if you worsen in any way including evolving fever , difficulty breathing, chest pain, or any other concerning symptoms. Prescriptions: Prednisone [Deltasone 10 mg Tablet] 10 mg PO ASDIR PRN #21 tablet PRN Reason: Referrals: ELIECER RAMIREZ MD [Primary Care Provider] - Follow up as needed
[2017-02-04 02:08] LABS: VENOUS BLOOD BASE EXCESS 7.2 mmol/L; VENOUS BLOOD HCO3 35.2 mmol/L (20-32); VENOUS BLOOD PH 7.34 (7.30-7.42)
[2017-02-04 02:09] LABS: HEMATOCRIT 34.2 % (36.0-47.0); HEMOGLOBIN 10.7 g/dL (12.0-15.5); HGB HCT DIFFERENCE -2.1; MEAN CORPUSCULAR HGB CONC 31.4 g/dL (32.0-36.0); MEAN CORPUSCULAR VOLUME 99 fl (80-97); RED BLOOD COUNT 3.46 10^6/uL (3.72-5.28)
[2017-02-04 02:23] LABS: BASOPHILS % (MANUAL) 0 % (0-2); EOSINOPHILS % (MANUAL) 0 % (0-6); LYMPHOCYTES % (MANUAL) 7 % (13-45); TOTAL CELLS COUNTED 100; TOXIC GRANULATION SLIGHT
[2017-02-04 02:24] LABS: VENOUS BLOOD PCO2 66.7 mmHg (35-63)
[2017-02-04 02:25] LABS: ANISOCYTOSIS SLIGHT; POIKILOCYTOSIS SLIGHT; POLYCHROMASIA SLIGHT
[2017-02-04 02:28] LABS: ALANINE AMINOTRANSFERASE 32 U/L (9-52); ALBUMIN 3.9 g/dL (3.5-5.0); ALKALINE PHOSPHATASE 91 U/L (38-126); ANION GAP 9 (5-19); ASPARTATE AMINO TRANSFERASE 38 U/L (14-36); BILIRUBIN,DIRECT 0.4 mg/dL (0.0-0.4); BILIRUBIN,TOTAL 0.6 mg/dL (0.2-1.3); BLOOD UREA NITROGEN 25 mg/dL (7-20); CALCIUM 9.2 mg/dL (8.4-10.2); CARBON DIOXIDE 35 mmol/L (22-30); CHLORIDE 99 mmol/L (98-107); CREATINE KINASE 55 U/L (30-135); CREATININE RESULT 0.73 mg/dL (0.52-1.25); GLUCOSE 137 mg/dL (75-110); POTASSIUM 5.2 mmol/L (3.6-5.0); SODIUM 142.7 mmol/L (137-145); TOTAL PROTEIN 7.2 g/dL (6.3-8.2)
[2017-02-04] MEDS ORDERED: METHYLPREDNISOLONE INJ 125 MG/2 ML SDV IV ONE (02:28)
[2017-02-04 02:40] LABS: CREATINE KINASE MB 4.86 ng/mL (<4.55)
--- NOTE | 2017-02-04 02:55 | RADIOLOGY REPORT (SQ) ---
EXAM DESCRIPTION: CHEST SINGLE VIEW COMPLETED DATE/TIME: 02/04/2017 2:04 am REASON FOR STUDY: shortness of breath COMPARISON: 12/14/2016. EXAM PARAMETERS: NUMBER OF VIEWS: One view. TECHNIQUE: Single frontal radiographic view of the chest acquired. RADIATION DOSE: NA LIMITATIONS: Rotational artifact. FINDINGS: LUNGS AND PLEURA: No opacities, masses or pneumothorax. No pleural effusion. Moderate emp hysematous hyperinflation. Mild interstitial markings. MEDIASTINUM AND HILAR STRUCTURES: No masses. Contour normal. HEART AND VASCULAR STRUCTURES: Heart normal in size. Atherosclerosis. BONES: No acute findings. HARDWARE: None in the chest. OTHER: No other significant finding. IMPRESSION: No acute cardiopulmonary findings. TECHNICAL DOCUMENTATION: JOB ID: [id number]
[2017-02-04 03:02] LABS: TROPONIN I 0.051 ng/mL
--- NOTE | 2017-02-04 05:23 | RADIOLOGY REPORT (SQ) ---
EXAM DESCRIPTION: CTA CHEST COMPLETED DATE/TIME: 02/04/2017 4:18 am REASON FOR STUDY: difficulty breathing, post op COMPARISON: CR, same day. CT, 11/22/2016. TECHNIQUE: CT scan of the chest performed using helical scanning technique with dynamic intravenous contrast injection. Images reviewed with lung, soft tissue and bone windows. Reconstructed coronal and sagittal MPR images reviewed. Additional 3 dimensional post-processing performed to develop Maximal Intensity Projection images (CA P). All images stored on PACS. All CT scanners at this facility use dose modulation, iterative reconstruction, and/or weight based d osing when appropriate to reduce radiation dose to as low as reasonably achievable (ALARA). [facility]: Dose Right [facility]: CareDose [facility]: Dose Right [facility]: Teradose 4D [facility]: cloudswave CONTRAST TYPE AND DOSE: contrast/concentration: Isovue 370.00 mg/ml; Total Contrast Delivered: 55.0 ml; Total Saline Delivered: 96.0 ml RENAL FUNCTION: Creatinine 0.7 RADIATION DOSE: 27.45 . LIMITATIONS: None. FINDINGS: LUNGS AND PLEURA: No masses, infiltrates, pneumothorax. No pleural effusions, calcificati ons. Moderate emphysematous hyperinflation. AORTA AND GREAT VESSELS: No aneurysm or dissection. HEART: No pericardial effusion. Atherosclerosis. Coronary arterial calcification. Moderate left at rial enlargement. PULMONARY ARTERIES: No emboli visualized in the main pulmonary arteries or the segmental branches. HILAR AND MEDIASTINAL STRUCTURES: No identified masses or abnormal nodes. HARDWARE: None in the chest. UPPER ABDOMEN: No significant findings. Limited exam. THYROID AND OTHER SOFT TISSUES: No masses. No adenopathy. BONES: No acute or significant finding. Moderate disc desiccation. Relatively new mild T12 anterior compression deformity. Chronic [id number] T11 anterior compression deformity. Moderate chron ic T9 anterior compression deformity with sclerosis. New T4 mild anterior compression deformity. Mo derate bony demineralization. 3D MIPS: Confirm above findings. OTHER: No other significant finding. IMPRESSION: No acute cardiopulmonary findings. No evidence of pulmonary emboli. Multiple compressi on deformities with interval worsening. TECHNICAL DOCUMENTATION: JOB ID: [id number] Quality ID # [id number]: Final reports with documentation of one or more dose reduction techniques (e.g., Au tomated exposure control, adjustment of the mA and/or kV according to patient size, use of iterative reconstruction technique) 2010 [employer]- All Rights Reserved
[2017-02-04 06:07] VITALS: BP 137/77
--- NOTE | 2017-02-04 13:02 | EKG REPORT ---
SEVERITY:- ABNORMAL ECG - SINUS RHYTHM IRBBB AND LPFB : Confirmed by: Belkys Freitas MD 04-Feb-2017 13:01:56
== END 2017-02-04 05:50 | disposition home or self-care (01) ==
LOC: ER 01:10
DX: J44.1 Chronic obstructive pulmonary disease with (acute) exacerbation (principal); J96.12 Chronic respiratory failure with hypercapnia; Z99.81 Dependence on supplemental oxygen; D72.829 Elevated white blood cell count, unspecified; I25.10 Atherosclerotic heart disease of native coronary artery without angina pectoris; I10 Essential (primary) hypertension; I73.9 Peripheral vascular disease, unspecified; Z98.62 Peripheral vascular angioplasty status; Z79.02 Long term (current) use of antithrombotics/antiplatelets; M40.203 Unspecified kyphosis, cervicothoracic region; Z87.891 Personal history of nicotine dependence; Z88.1 Allergy status to other antibiotic agents; Z88.4 Allergy status to anesthetic agent; Z80.1 Family history of malignant neoplasm of trachea, bronchus and lung; Z82.5 Family history of asthma and other chronic lower respiratory diseases; Z86.73 Personal history of transient ischemic attack (TIA), and cerebral infarction without residual deficits; Z79.52 Long term (current) use of systemic steroids
CPT/HCPCS: 93005; 99285; 96374; 36415; 87040; 82553; 82550; 85025; 80053; 84484; 82803; 71010; 71275; 93010; J2930

== ENCOUNTER 2017-04-05 22:55 | Emergency (ER) | payer MEDICARE, OTHER ==
[2017-04-06 00:06] VITALS: BP 118/57
== END 2017-04-06 01:46 | disposition left against medical advice (07) ==
LOC: ER 22:55
DX: Z53.21 Procedure and treatment not carried out due to patient leaving prior to being seen by health care provider (principal)

== ENCOUNTER 2017-04-06 13:28 | Inpatient (IN) | payer MEDICARE, OTHER ==
--- NOTE | 2017-04-06 14:17 | ER Document Report ---
ED Medical Screen (RME) - General Chief Complaint: Leg Swelling Stated Complaint: RIGHT LEG PAIN Time Seen by Provider: 04/06/17 14:11 Notes: 76-year-old COPD O2 dependent female who is on Plavix is here for right leg pain and swelling for the past 5 days. She was seen at the wound care clinic for her chronic lower extremity wounds on Sunday. She saw her primary care provider on Sunday. The right leg is grossly swollen compared to the left and was reportedly the same size as the left a week ago. There is tenderness in the right calf today. I have greeted and performed a rapid initial assessment of this patient. A comprehensive ED assessment and evaluation of the patient, analysis of test results and completion of the medical decision making process will be conducted by additional ED providers. TRAVEL OUTSIDE OF THE [place] IN LAST 30 DAYS: No - Related Data Allergies/Adverse Reactions: halothane [From Fluothane] Allergy (Severe, Verified 04/06/17 13:35) Severe liver damage ciprofloxacin [From Cipro] Allergy (Intermediate, Verified 04/06/17 13:35) Rash, itch amoxicillin Adverse Reaction (Verified 04/06/17 13:35) Past Medical History - Social History Chew tobacco use (# tins/day): No Frequency of alcohol use: None Drug Abuse: None - Past Medical History Cardiac Medical History: Reports: Hx Hypertension, Hx Peripheral Vascular Disease Denies: Hx DVT, Hx Heart Attack, Hx Hypercholesterolemia, Hx Pulmonary Embolism, Hx Heart Murmur Pulmonary Medical History: Reports: Hx Asthma, Hx COPD - O2 DEPENDENT Denies: Hx Respiratory Failure, Hx Sleep Apnea, Hx Tuberculosis Neurological Medical History: Reports: 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). Denies: Hx Seizures Endocrine Medical History: Denies: Hx Diabetes Mellitus Type 1, Hx Diabetes Mellitus Type 2, Hx Hyperthyroidism, Hx Hypothyroidism Renal/ Medical History: Denies: Hx Peritoneal Dialysis GI Medical History: Reports: Hx Gastroesophageal Reflux Disease, Hx Hepatitis - FROM [place]. Denies: Hx Cirrhosis Musculoskeltal Medical History: Reports Hx Arthritis - osteo Psychiatric Medical History: Denies: Hx Depression Traumatic Medical History: Reports: Hx Fractures - RIGHT HAND Infectious Medical History: Reports: Hx C-Diff - History of, Hx Hepatitis - FROM [place]. Denies: Hx MRSA Past Surgical History: Reports: Hx Appendectomy, Hx Cardiac Catheterization, Hx Carotid Endarterectomy - Right, Hx Cholecystectomy, Hx Hysterectomy, Hx Urinary Tract Surgery - Bladder tack, Hx Vascular Surgery - Angioplasty right leg, graft in left leg. - Immunizations Immunizations up to date: Yes Hx Diphtheria, Pertussis, Tetanus Vaccination: Yes Physical Exam - Vital signs Vitals: Temp Pulse Resp BP Pulse Ox 98.4 F 96 18 115/49 L 96 04/06/17 13:38 04/06/17 13:38 04/06/17 13:38 04/06/17 13:38 04/06/17 13:38 Course - Vital Signs Vital signs: Temp Pulse Resp BP Pulse Ox 98.4 F 96 18 115/49 L 96 04/06/17 13:38 04/06/17 13:38 04/06/17 13:38 04/06/17 13:38 04/06/17 13:38
[2017-04-06 14:49] LABS: HEMATOCRIT 30.9 % (36.0-47.0); HEMOGLOBIN 10.1 g/dL (12.0-15.5); HGB HCT DIFFERENCE -0.6; MEAN CORPUSCULAR HEMOGLOBIN 31.4 pg (27.0-33.4); MEAN CORPUSCULAR HGB CONC 32.5 g/dL (32.0-36.0); MEAN CORPUSCULAR VOLUME 97 fl (80-97); RED BLOOD COUNT 3.21 10^6/uL (3.72-5.28); RED CELL DISTRIBUTION WIDTH 14.2 % (11.5-14.0); WHITE BLOOD COUNT 22.3 10^3/uL (4.0-10.5)
[2017-04-06 15:00] LABS: ALANINE AMINOTRANSFERASE 49 U/L (9-52); ALBUMIN 3.6 g/dL (3.5-5.0); ALKALINE PHOSPHATASE 102 U/L (38-126); ANION GAP 14 (5-19); ASPARTATE AMINO TRANSFERASE 46 U/L (14-36); BILIRUBIN,DIRECT 0.5 mg/dL (0.0-0.4); BILIRUBIN,TOTAL 0.7 mg/dL (0.2-1.3); BLOOD UREA NITROGEN 52 mg/dL (7-20); CALCIUM 9.7 mg/dL (8.4-10.2); CARBON DIOXIDE 22 mmol/L (22-30); CHLORIDE 100 mmol/L (98-107); CREATININE RESULT 1.55 mg/dL (0.52-1.25); GLUCOSE 150 mg/dL (75-110); SODIUM 136.1 mmol/L (137-145)
[2017-04-06 15:06] LABS: ANISOCYTOSIS SLIGHT; BAND NEUTROPHILS % (MANUAL) 2 % (3-5); BASOPHILS % (MANUAL) 0 % (0-2); EOSINOPHILS % (MANUAL) 0 % (0-6); LYMPHOCYTES % (MANUAL) 3 % (13-45); TOTAL CELLS COUNTED 100; TOXIC GRANULATION 1+; TOXIC VACUOLATION PRESENT
[2017-04-06 15:07] LABS: PLATELET CLUMPS PRESENT
[2017-04-06 15:09] LABS: BURR CELLS SLIGHT; OVALOCYTES SLIGHT; POLYCHROMASIA SLIGHT
[2017-04-06 15:15] LABS: POTASSIUM 5.9 mmol/L (3.6-5.0)
--- NOTE | 2017-04-06 15:50 | RADIOLOGY REPORT (SQ) ---
EXAM DESCRIPTION: VENOUS UNILATERAL LOWER COMPLETED DATE/TIME: 04/06/2017 3:43 pm REASON FOR STUDY: right leg swelling x 5 days, calf tender COMPARISON: Venous Doppler 12/14/2016 TECHNIQUE: Dynamic and static butler scale and color images acquired of the right leg venous system. S elected spectral images acquired with additional compression and augmentation maneuvers. The contrala teral common femoral vein and saphenofemoral junction were also imaged. Images stored on PACS. LIMITATIONS: There is a bandage over the mid to lower calf from an open wound. FINDINGS: Right COMMON FEMORAL: Normal phasicity, compression and augmentation. No visualized echogenic material on g ray scale. No defects on color images. FEMORAL: Normal compression and augmentation. No visualized echogenic material on butler scale. No defe cts on color images. POPLITEAL: Normal compression, augmentation. No visualized echogenic material on butler scale. No defec ts on color images. CALF VESSELS: Normal compression, augmentation. No visualized echogenic material on butler scale. No de fects on color images. GSV and SSV: Normal compression, augmentation. No visualized echogenic material on butler scale. No def ects on color images. ANY DEEP VENOUS INSUFFICIENCY: Not evaluated. ANY EVIDENCE OF POPLITEAL CYST: No. OTHER: No other significant finding. Left COMMON FEMORAL VEIN AND SAPHENOFEMORAL JUNCTION: Normal phasicity, compression and augmentation. No visualized echogenic material on butler scale. No de fects on color images. IMPRESSION: NO EVIDENCE OF DVT OR SVT IN THE RIGHT LEG. TECHNICAL DOCUMENTATION: JOB ID: [id number] [employer]- All Rights Reserved
--- NOTE | 2017-04-06 16:06 | ER Document Report ---
ED Extremity Problem, Lower - General Information source: Patient, Relative - son TRAVEL OUTSIDE OF THE [place] IN LAST 30 DAYS: No - HPI Patient complains to provider of: Pain, Swelling Location: Leg - right Occurred: Other - approximately 1 1/2 weeks ago Where: Home Onset/Duration: Persistent, Worse Context: Other - puppy bite Associated symptoms: Other - see above Exacerbated by: Walking <LEANDRO WONG - Last Filed: 04/06/17 19:31> <CRISTINO MORGAN - Last Filed: 04/06/17 19:32> - General Chief Complaint: Leg Swelling Stated Complaint: RIGHT LEG PAIN Time Seen by Provider: 04/06/17 14:11 Notes: Patient is a 76 year old female who presents to the ED with complaints of worsening pain and swelling to her right lower leg. Patient states she has a puppy at home who bit her right lower leg. She has redness, swelling and pain to her right leg. Her pain is exacerbated by walking on it. Patient saw Dr. Coulter on Sunday and Dr. Swenson on Sunday. She was given a topical cream to put on her leg and her home health nurse has been dressing the wound. Patients wound has some drainage and worsening swelling and redness since seeing her PCP on Sunday. Patients wound has blistered and popped and she continues to have drainage from the area. She has not had a known fever. She has not taken any oral antibiotics for this wound. Dr. Coulter performed left foot wound debridement on Sunday. PCP: Dr. Swenson (LEANDRO WONG) - Related Data Allergies/Adverse Reactions: halothane [From Fluothane] Allergy (Severe, Verified 04/06/17 13:35) Severe liver damage ciprofloxacin [From Cipro] Allergy (Intermediate, Verified 04/06/17 13:35) Rash, itch amoxicillin Adverse Reaction (Verified 04/06/17 13:35) Past Medical History - General Information source: Patient, Relative - son - Social History Smoking Status: Former Smoker Chew tobacco use (# tins/day): No Frequency of alcohol use: None Drug Abuse: None Family History: Malignancy - FATHER HAD LUNG CANCER, Other - SIB AND CHILD WITH ASTHMA - Past Medical History Cardiac Medical History: Reports: Hx Atrial Fibrillation, Hx Hypertension, Hx Peripheral Vascular Disease Pulmonary Medical History: Reports: Hx Asthma, Hx COPD - O2 DEPENDENT Neurological Medical History: Reports: 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) Renal/ Medical History: Denies: Hx Peritoneal Dialysis GI Medical History: Reports: Hx Gastroesophageal Reflux Disease, Hx Hepatitis - FROM [place] Musculoskeltal Medical History: Reports Hx Arthritis - osteo Traumatic Medical History: Reports: Hx Fractures - RIGHT HAND Infectious Medical History: Reports: Hx C-Diff - History of, Hx Hepatitis - FROM [place] Past Surgical History: Reports: Hx Appendectomy, Hx Cardiac Catheterization, Hx Carotid Endarterectomy - Right, Hx Cholecystectomy, Hx Hysterectomy, Hx Urinary Tract Surgery - Bladder tack, Hx Vascular Surgery - Angioplasty right leg, graft in left leg. - Immunizations Immunizations up to date: Yes Hx Diphtheria, Pertussis, Tetanus Vaccination: Yes Hx Pneumococcal Vaccination: 05/20/08 <LEANDRO WONG - Last Filed: 04/06/17 19:31> Review of Systems - Review of Systems Constitutional: See HPI. denies: Fever EENT: No symptoms reported Cardiovascular: No symptoms reported Respiratory: No symptoms reported Gastrointestinal: No symptoms reported Genitourinary: No symptoms reported Female Genitourinary: No symptoms reported Musculoskeletal: See HPI, Leg swelling - right lower leg Skin: See HPI, Other - dog bite to right lower extremity. redness to lower right leg Hematologic/Lymphatic: No symptoms reported Neurological/Psychological: No symptoms reported <LEANDRO WONG - Last Filed: 04/06/17 19:31> Physical Exam <LEANDRO WONG - Last Filed: 04/06/17 19:31> <CRISTINO MORGAN - Last Filed: 04/06/17 19:32> - Vital signs Vitals: Temp Pulse Resp BP Pulse Ox 98.4 F 96 18 115/49 L 96 04/06/17 13:38 04/06/17 13:38 04/06/17 13:38 04/06/17 13:38 04/06/17 13:38 - Notes Notes: GENERAL: Alert, interacts well. No acute distress. HEAD: Normocephalic, atraumatic. EYES: Pupils equal, round, and reactive to light. Extraocular movements intact. ENT: Oral mucosa moist, tongue midline. NECK: Full range of motion. Supple. Trachea midline. LUNGS: Clear to auscultation bilaterally, no wheezes, rales, or rhonchi. No respiratory distress. Wearing her baseline oxygen via nasal cannula. HEART: Regular rate and rhythm. No murmurs, gallops, or rubs. ABDOMEN: Soft, non-tender. Non-distended. Bowel sounds present in all 4 quadrants. EXTREMITIES: Moves all 4 extremities spontaneously. See skin exam for wound findings. Crepitus just superior to wound, area with crepitus is tender to palpation. 2+ pitting edema to right foot, 1+ pitting edema to anterior tibia about [address] the right calf. No cyanosis. NEUROLOGICAL: Alert and oriented x3. Normal speech. PSYCH: Normal affect, normal mood. SKIN: Warm, dry, normal turgor. Diffuse erythema of right lower extremity, tracking down to foot, going up to just above the initial bite. No lymphangetic streaking. Point where patient indicates in the initial bite there is an ulceration that is approximately 3cm long x 1cm wide, granulation tissue and greenish exudate is noted. Blistering inferior to wound that is 10cm long, open blister is 4cm long x 2cm wide, closed portion is 6cm long x 2cm wide. Both wounds are noted to be medial aspect of right calf. Multiple areas of ecchymosis and some skin tears in various stages of healing. (LEANDRO WONG) Course - Laboratory Result Diagrams: 04/06/17 14:32 04/06/17 14:32 - Consults Dr. Melara Time consulted: 16:05 Dr. Avery Time consulted: 17:26 <LEANDRO WONG - Last Filed: 04/06/17 19:31> - Laboratory Result Diagrams: 04/06/17 14:32 04/06/17 14:32 <CRISTINO MORGAN - Last Filed: 04/06/17 19:32> - Re-evaluation Re-evalutation: 04/06/17 18:12 CBC shows leukocytosis of 22.3, chronic anemia with hemoglobin of 10.1, potassium elevated at 5.9 likely due to renal failure, BUN is 52 and creatinine is 1.55, this is addressed with fluids, potassium is addressed with Lasix, more fluids, calcium gluconate, sodium bicarb. LFTs unremarkable. Patient has crepitus when I palpate the area just above the erythema, this is concerning for necrotizing fasciitis so I did immediately consult Dr. Melara the surgeon on-call, he agreed with starting imipenem, vancomycin, clindamycin and sending for immediate CT scan to rule out subcutaneous emphysema. CAT scan did not show any subcu emphysema, it did show cellulitis and skin thickening. Patient will be admitted to Dr. Melara service in inpatient status on the surgical floor, hospitalist have been consulted, Dr. Alvarado agrees to consult with the patient. Patient is once again reemphasized her desire to be a DNR. (CRISTINO MORGAN) - Vital Signs Vital signs: Temp Pulse Resp BP Pulse Ox 98.4 F 96 18 163/96 H 96 04/06/17 13:38 04/06/17 19:16 04/06/17 19:16 04/06/17 19:16 04/06/17 19:16 - Laboratory Laboratory results interpreted by me: 04/06/17 04/06/17 14:32 14:32 WBC 22.3 H RBC 3.21 L Hgb 10.1 L Hct 30.9 L RDW 14.2 H Seg Neuts % (Manual) 93 H Band Neutrophils % 2 L Lymphocytes % (Manual) 3 L Monocytes % (Manual) 2 L Abs Neuts (Manual) 21.2 H Sodium 136.1 L Potassium 5.9 H BUN 52 H Creatinine 1.55 H Est GFR ( Amer) 39 L Est GFR (Non-Af Amer) 32 L Glucose 150 H Direct Bilirubin 0.5 H AST 46 H - Consults Dr. Melara Reason for consultation: 04/06/17 16:05 Discussed patient. He will come to the ED to assess the patient. 04/06/17 17:24 Dr. Melara requested that we do a non contrasted CT to try and preserve patients kidneys. I talked this over with Dr. Avery and he agrees that we can do this CT without contract due to patients renal function. (LEANDRO WONG) Dr. Avery Reason for consultation: 04/06/17 17:[address] Avery. He agreed with Dr. Melara, we will proceed with a non contrasted CT of patients leg due to patients kidney function. (LEANDRO WONG) Discharge <LEANDRO WONG - Last Filed: 04/06/17 19:31> - Discharge Admitting Provider: Surgicalist - [facility] Unit Admitted: Surgical Floor <CRISTINO MORGAN - Last Filed: 04/06/17 19:32> - Discharge Clinical Impression: Cellulitis right foot, Cellulitis of right leg, Hyperkalemia, DNR (do not resuscitate), Peripheral vascular disease Acute renal failure Qualifiers: Acute renal failure type: unspecified Qualified Code(s): N17.9 - Acute kidney failure, unspecified COPD (chronic obstructive pulmonary disease) Qualifiers: COPD type: chronic bronchitis Chronic bronchitis type: unspecified Qualified Code(s): J42 - Unspecified chronic bronchitis Condition: Stable Disposition: ADMITTED INPATIENT Scribe Attestation: 04/06/17 19:32 I personally performed the services described in the documentation, reviewed and edited the documentation which was dictated to the scribe in my presence, and it accurately records my words and actions. (CRISTINO MORGAN) Scribe Documentation - Scribe Written by Brooke:: brooke Navarro, 04/06/2017, 1607 acting as scribe for :: Joyce <LEANDRO WONG - Last Filed: 04/06/17 19:31>
[2017-04-06] MEDS ORDERED: VANCOMYCIN HCL INJ 1000 MG VIAL IV ONE (16:14)
[2017-04-06] MEDS ORDERED: CLINDAMYCIN 600 MG/D5W RTU 600 MG/50 ML RTUPB IV ONE (16:14)
[2017-04-06] MEDS ORDERED: IMIPENEM/CILASTATIN SODIUM INJ 500 MG VIAL IV ONE ×2 (16:14→23:41)
[2017-04-06] MEDS ORDERED: FUROSEMIDE INJ/PF 40 MG/4 ML SDV IV ONE (16:16)
[2017-04-06] MEDS ORDERED: SODIUM BICARBONATE 8.4% INJ 50 MEQ/50 ML DISP.SYRIN IV ONE (16:16)
[2017-04-06] MEDS ORDERED: NORMAL SALINE 1000 ML 1,000 ML IV ONE ×2 (16:16→17:24)
[2017-04-06] MEDS ORDERED: CALCIUM GLUCONATE 1000 MG/10 ML INJ IV ONE (16:16)
--- NOTE | 2017-04-06 17:16 | PDOC H&P ---
History of Present Illness Admission Date/PCP: ELIECER RAMIREZ MD Patient complains of: right leg erythema, swelling, and blistering History of Present Illness: MIKEL CHOPRA is a 76 year old female with a 1 week hx of being bit by a puppy dog on the right leg just above the heel. This was followed by a small skin injury which eventually progressed into erythema, swelling, blistirng of the lower leg skin, and partial darkening of the skin itself. She has a severe hx of vascular disease, characterized by RLE thombectomy 2 yrs ago, heart catheterization in November 2016, followed by emergent LLE PTFE femoral=popliteal bypass graft. Past Medical History Cardiac Medical History: Reports: Atrial Fibrillation, Hypertension, Peripheral Vascular Disease Denies: DVT, Myocardial Infarction, Hyperlipidema, Pulmonary Embolism, Heart Murmur Pulmonary Medical History: Reports: Asthma, Chronic Obstructive Pulmonary Disease (COPD) - O2 DEPENDENT Denies: Respiratory Failure, Sleep Apnea, Tuberculosis Neurological Medical History: Denies: Seizures Endocrine Medical History: Denies: Diabetes Mellitus Type 1, Diabetes Mellitus Type 2, Hyperthyroidism, Hypothyroidism GI Medical History: Reports: Gastroesophageal Reflux Disease, Hepatitis - FROM [place] Denies: Cirrhosis Musculoskeltal Medical History: Reports: Arthritis - osteo Psychiatric Medical History: Denies: Depression Hematology: Reports: Anemia Denies: Hemophilia, Sickle Cell Disease Infectious Medical History: Reports: Clostridium Difficile - History of Denies: Methicillin-Resistant Staph Aureus Past Surgical History Past Surgical History: Reports: Appendectomy, Cardiac Catheterization, Carotid Endarterectomy - Right, Cholecystectomy, Hysterectomy, Vascular Surgery - Angioplasty right leg, graft in left leg. Denies: Amputation Social History Smoking Status: Former Smoker Frequency of Alcohol Use: None Hx Recreational Drug Use: No Drugs: None Hx Prescription Drug Abuse: No Family History Family History: Malignancy - FATHER HAD LUNG CANCER, Other - SIB AND CHILD WITH ASTHMA Parental Family History Reviewed: Yes - heavy smiker and drinker Children Family History Reviewed: No - none Sibling(s) Family History Reviewed.: No - none Medication/Allergy Home Medications: Atorvastatin Calcium [Lipitor 40 mg Tablet] 40 mg PO QHS 12/19/16 Clopidogrel Bisulfate [Plavix 75 mg Tablet] 75 mg PO DAILY 12/19/16 Hydrocodone Bit/Acetaminophen [Hydrocodon-Acetaminophen 5-325] 1 tab PO Q8HP PRN 12/19/16 Ipratropium/Albuterol Sulfate [Duoneb 3 ml Ampul] 3 ml NEB RTQIDP PRN 12/19/16 Metoprolol Succinate [Toprol XL 100 mg Tablet] 100 mg PO Q12 12/19/16 Nitroglycerin [Nitrostat 0.4 mg (1/150 Gr) Tabs 25/Bottle] 1 tab SL Q5MP PRN 10/06 Pantoprazole Sodium [Protonix] 40 mg PO DAILY 12/19/16 Prednisone [Deltasone 5 mg Tablet] 5 mg PO BID 12/19/16 Silver Sulfadiazine [Silvadene 1% Cream 400 gm] 1 applic TP DAILYP PRN 12/19/16 Budesonide/Formoterol Fumarate [Symbicort HFA 160-4.5 mcg Inhaler 6 gm] 2 puff IH Q12 #1 inhaler 12/21/16 Clindamycin HCl [Cleocin 300 mg Capsule] 300 mg PO QID #40 capsule 12/21/16 Clotrimazole [Mycelex 10 mg Carson] 10 mg PO QID #40 carson 12/21/16 Doxycycline Hyclate 100 mg PO BID #20 capsule 12/21/16 Mineral Oil/Petrolatum,White [Eucerin Cream 114 gm] 1 applic TP DAILY 30 Days jar 12/21/16 Prednisone [Deltasone 10 mg Tablet] 10 mg PO ASDIR PRN #21 tablet 02/04/17 Allergies/Adverse Reactions: halothane [From Fluothane] Allergy (Severe, Verified 04/06/17 13:35) Severe liver damage ciprofloxacin [From Cipro] Allergy (Intermediate, Verified 04/06/17 13:35) Rash, itch amoxicillin Adverse Reaction (Verified 04/06/17 13:35) Physical Exam Vital Signs: Temp Pulse Resp BP Pulse Ox 98.4 F 96 18 115/49 L 96 04/06/17 13:38 04/06/17 13:38 04/06/17 13:38 04/06/17 13:38 04/06/17 13:38 Intake & Output 04/05/17 04/06/17 04/07/17 06:59 06:59 06:59 Weight 41.73 kg Respiratory exam: PRESENT: clear to auscultation brendon Cardiovascular exam: PRESENT: irregular rhythm Pulses: PRESENT: other - LLE: palpable PTFE graft RLE: non palpable DP/PT Skin exam: PRESENT: vesicles - right lower leg, other - erythema, edema diffuse right lower leg, with some darkening of the skin Results Laboratory Results: 04/06/17 14:32 04/06/17 14:32 04/06/17 04/06/17 14:32 14:32 WBC 22.3 H RBC 3.21 L Hgb 10.1 L Hct 30.9 L MCV 97 MCH 31.4 MCHC 32.5 RDW 14.2 H Plt Count 417 Seg Neutrophils % Not Reportable Lymphocytes % Not Reportable Monocytes % Not Reportable Eosinophils % Not Reportable Basophils % Not Reportable Absolute Neutrophils Not Reportable Absolute Lymphocytes Not Reportable Absolute Monocytes Not Reportable Absolute Eosinophils Not Reportable Absolute Basophils Not Reportable Sodium 136.1 L Potassium 5.9 H Chloride 100 Carbon Dioxide 22 Anion Gap 14 BUN 52 H Creatinine 1.55 H Est GFR ( Amer) 39 L Est GFR (Non-Af Amer) 32 L Glucose 150 H Calcium 9.7 Total Bilirubin 0.7 AST 46 H ALT 49 Alkaline Phosphatase 102 Total Protein 7.0 Albumin 3.6 Impressions: Venous Doppler Study 04/06/17 14:15 IMPRESSION: NO EVIDENCE OF DVT OR SVT IN THE RIGHT LEG. Assessment & Plan - Diagnosis (2) Cellulitis Qualifiers: Site of cellulitis: extremity Site of cellulitis of extremity: lower extremity Laterality: left Qualified Code(s): L03.116 - Cellulitis of left lower limb - Plan Summary Plan Summary: A/ Severe cellulitis R leg with blistering and swelling after canine bite Hx of peripheral vascular disease (RLE thombectomy; LLE femoral-popliteal bypass PTFE graft) Leucocytosis Worsening kidney failure P/ Obtain Ct scan of RLE to r/o gas gangrene. I will proceed accordingly to the CT findings: if no gas gangrene is identified , the patient will be admitted for IV antibiotic therapy only. If gas gangrene is identified, the patient will be taken emergently to the operating room today. IVF IV antibiotics
--- NOTE | 2017-04-06 17:58 | RADIOLOGY REPORT (SQ) ---
EXAM DESCRIPTION: CT RT LOWER EXTREMITY WITHOUT COMPLETED DATE/TIME: 04/06/2017 5:38 pm REASON FOR STUDY: subq crepitus, RLE, calf, medial aspect COMPARISON: New right lower extremity venous Doppler 04/06/2017 TECHNIQUE: CT scan of the right lower leg performed without intravenous or oral contrast. Images re viewed with soft tissue and bone windows. Reconstructed coronal and sagittal MPR images reviewed. A ll images stored on PACS. All CT scanners at this facility use dose modulation, iterative reconstruction, and/or weight based d osing when appropriate to reduce radiation dose to as low as reasonably achievable (ALARA). [facility]: Dose Right [facility]: CareDose [facility]: Dose Right [facility]: Teradose 4D [facility]: [employer] RADIATION DOSE: 4.1 mGy. LIMITATIONS: No IV contrast FINDINGS: No soft tissue gas is seen over the right lower leg soft tissues from the through the plan tar foot. There is diffuse subcutaneous edema throughout the right lower leg, with diffuse skin thickening. Extensive arterial vascular calcification is present. No well-circumscribed soft tissue abscess. No fracture of the tibia or fibula. No malalignment at the knee or ankle joint. IMPRESSION: No focal deep tissue fluid collections. No soft tissue gas. Diffuse right lower leg cellulitis with skin thickening, and subcutaneous edema. TECHNICAL DOCUMENTATION: JOB ID: [id number] Quality ID # [id number]: Final reports with documentation of one or more dose reduction techniques (e.g., Au tomated exposure control, adjustment of the mA and/or kV according to patient size, use of iterative reconstruction technique) 2010 [employer]!- All Rights Reserved
[2017-04-06] MEDS ORDERED: NORMAL SALINE 1000 ML 1,000 ML IV PRN (18:16)
--- NOTE | 2017-04-06 19:08 | PDOC H&P ---
History of Present Illness Admission Date/PCP: ELIECER RAMIREZ MD Patient complains of: Right lower extremity cellulitis History of Present Illness: MIKEL CHOPRA is a 76 year old white female with a past medical history of vascular disease status post angiogram of the left groin and admission here for lower extremity cellulitis back in December, hypertension and chronic kidney disease who presents to the surgical service for continued lower extremity cellulitis on the right leg. Apparently the patient was bit by her dog a week ago. Her injuries started out small consisting of a blister, followed by darkening of the skin and worsening of the wound. The patient was seen by the surgical service in the ED and it was felt that she needed admission for IV antibiotics. The internal medicine service is consulted for medical management of her other comorbid conditions. Past Medical History Cardiac Medical History: Reports: Atrial Fibrillation, Hypertension, Peripheral Vascular Disease Pulmonary Medical History: Reports: Asthma, Chronic Obstructive Pulmonary Disease (COPD) - O2 DEPENDENT Endocrine Medical History: Denies: Diabetes Mellitus Type 1, Hyperthyroidism GI Medical History: Reports: Gastroesophageal Reflux Disease, Hepatitis - FROM [place] Musculoskeltal Medical History: Reports: Arthritis - osteo Hematology: Reports: Anemia Infectious Medical History: Reports: Clostridium Difficile - History of Past Surgical History Past Surgical History: Reports: Appendectomy, Cardiac Catheterization, Carotid Endarterectomy - Right, Cholecystectomy, Hysterectomy, Vascular Surgery - Angioplasty right leg, graft in left leg. Social History Information Source: Patient Smoking Status: Former Smoker Frequency of Alcohol Use: None Hx Recreational Drug Use: No Drugs: None Hx Prescription Drug Abuse: No Family History Family History: Malignancy - FATHER HAD LUNG CANCER, Other - SIB AND CHILD WITH ASTHMA Parental Family History Reviewed: Yes Children Family History Reviewed: Yes Sibling(s) Family History Reviewed.: Yes Medication/Allergy Home Medications: Atorvastatin Calcium [Lipitor 40 mg Tablet] 40 mg PO QHS 12/19/16 Clopidogrel Bisulfate [Plavix 75 mg Tablet] 75 mg PO DAILY 12/19/16 Hydrocodone Bit/Acetaminophen [Hydrocodon-Acetaminophen 5-325] 1 tab PO Q8HP PRN 12/19/16 Ipratropium/Albuterol Sulfate [Duoneb 3 ml Ampul] 3 ml NEB RTQIDP PRN 12/19/16 Metoprolol Succinate [Toprol XL 100 mg Tablet] 100 mg PO Q12 12/19/16 Nitroglycerin [Nitrostat 0.4 mg (1/150 Gr) Tabs 25/Bottle] 1 tab SL Q5MP PRN 10/06 Pantoprazole Sodium [Protonix] 40 mg PO DAILY 12/19/16 Prednisone [Deltasone 5 mg Tablet] 5 mg PO BID 12/19/16 Silver Sulfadiazine [Silvadene 1% Cream 400 gm] 1 applic TP DAILYP PRN 12/19/16 Budesonide/Formoterol Fumarate [Symbicort HFA 160-4.5 mcg Inhaler 6 gm] 2 puff IH Q12 #1 inhaler 12/21/16 Clindamycin HCl [Cleocin 300 mg Capsule] 300 mg PO QID #40 capsule 12/21/16 Clotrimazole [Mycelex 10 mg Carson] 10 mg PO QID #40 carson 12/21/16 Doxycycline Hyclate 100 mg PO BID #20 capsule 12/21/16 Mineral Oil/Petrolatum,White [Eucerin Cream 114 gm] 1 applic TP DAILY 30 Days jar 12/21/16 Prednisone [Deltasone 10 mg Tablet] 10 mg PO ASDIR PRN #21 tablet 02/04/17 Allergies/Adverse Reactions: halothane [From Fluothane] Allergy (Severe, Verified 04/06/17 13:35) Severe liver damage ciprofloxacin [From Cipro] Allergy (Intermediate, Verified 04/06/17 13:35) Rash, itch amoxicillin Adverse Reaction (Verified 04/06/17 13:35) Review of Systems Review of Systems: The patient denies any worsening shortness of breath from baseline, chest pain, blood in the stool, blood in the urine, coughing up blood, throwing up blood, dysuria, cold or heat intolerance, fevers, chills, nausea, vomiting. She does admit to arthritic type pains in her hands as well as in her back. She is also had unintentional weight loss over the last several months. She is being followed by her PCP for this. She denies any abdominal pain dizziness. She usually ambulates with a walker or with a motorized scooter if she has to go out in public. Physical Exam Vital Signs: Temp Pulse Resp BP Pulse Ox 98.4 F 96 18 115/49 L 96 04/06/17 13:38 04/06/17 13:38 04/06/17 13:38 04/06/17 13:38 04/06/17 13:38 Intake & Output 04/05/17 04/06/17 04/07/17 06:59 06:59 06:59 Weight 41.73 kg GENERAL: This is a well-developed thin, elderly white female resting in bed in no acute distress beginning to eat a cheeseburger and kettle chips. HEENT: Normocephalic, atraumatic. Trachea is midline. Sclera are anicteric. Patient wears glasses. Dentition is fair. Moist mucous membranes. HEART: Regular rate and rhythm. 1/6 murmurs. No rubs or gallops. LUNGS: Clear to auscultation bilaterally with equal rise and fall of the chest. ABDOMEN: Soft, nontender, nondistended with normoactive bowel sounds EXTREMETIES: No clubbing, cyanosis. 1+ pitting edema on the right. Trace to 1 + pitting edema on the left. Old wound is present on the left that is bandaged. The wound on the right just above the medial malleolus appears red and beefy with some purulent drainage. Difficult to palpate peripheral pulses bilaterally. The patient moves all extremities well. Strength exam was not performed on her lower extremities as her legs were quite tender bilaterally. Strength is 5 out of 5 in the upper extremities. NEURO: Awake, alert and oriented 3. Cranial nerves II through XII are grossly intact. Results Laboratory Results: 04/06/17 14:32 04/06/17 14:32 04/06/17 04/06/17 14:32 14:32 WBC 22.3 H RBC 3.21 L Hgb 10.1 L Hct 30.9 L MCV 97 MCH 31.4 MCHC 32.5 RDW 14.2 H Plt Count 417 Seg Neutrophils % Not Reportable Lymphocytes % Not Reportable Monocytes % Not Reportable Eosinophils % Not Reportable Basophils % Not Reportable Absolute Neutrophils Not Reportable Absolute Lymphocytes Not Reportable Absolute Monocytes Not Reportable Absolute Eosinophils Not Reportable Absolute Basophils Not Reportable Sodium 136.1 L Potassium 5.9 H Chloride 100 Carbon Dioxide 22 Anion Gap 14 BUN 52 H Creatinine 1.55 H Est GFR ( Amer) 39 L Est GFR (Non-Af Amer) 32 L Glucose 150 H Calcium 9.7 Total Bilirubin 0.7 AST 46 H ALT 49 Alkaline Phosphatase 102 Total Protein 7.0 Albumin 3.6 Impressions: Venous Doppler Study 04/06/17 14:15 IMPRESSION: NO EVIDENCE OF DVT OR SVT IN THE RIGHT LEG. Lower Extremity CT 04/06/17 17:24 IMPRESSION: No focal deep tissue fluid collections. No soft tissue gas. Diffuse right lower leg cellulitis with skin thickening, and subcutaneous edema. Assessment & Plan - Diagnosis (1) Cellulitis of right leg Plan: Management per primary team. (2) Acute renal failure superimposed on stage 3 chronic kidney disease Plan: Patient's baseline creatinine is 0.9. Creatinine now is 1.55. The patient has received 40 mg IV of Lasix in the ED after receiving I see the primary team has already written for 2 boluses of IV fluids down in the ED as well. I would proceed with caution with any further Lasix secondary to her underlying kidney function. She may in fact need some fluid to be given back. Continuous normal saline. Repeat Chem-7 in the morning to see where she stands at that time. (3) COPD (chronic obstructive pulmonary disease) Qualifiers: COPD type: chronic bronchitis Chronic bronchitis type: unspecified Qualified Code(s): J42 - Unspecified chronic bronchitis Plan: Without exacerbation. Patient is currently stable. Continue various inhalers from home. (4) Essential hypertension Plan: Continue home medications. (5) GERD (gastroesophageal reflux disease) Qualifiers: Esophagitis presence: without esophagitis Qualified Code(s): K21.9 - Gastro -esophageal reflux disease without esophagitis Plan: Continue PPI. (6) Hyperkalemia Plan: The patient is currently receiving calcium gluconate, insulin and dextrose for potassium of 5.9. This was done in the ER. (7) Peripheral vascular disease Plan: The patient follows at [facility]. (8) Chronic pain with drug dependence Plan: Patient's chronic pain is secondary to her arthritis in her hands and back pain. Continue home pain medication regimen after it is verified by the pharmacy. - Time Time Spent: 30 to 50 Minutes - Inpatient Certification Based on my medical assessment, after consideration of the patient's comorbidities, presenting symptoms, or acuity I expect that the services needed warrant INPATIENT care.: Yes
[2017-04-06] MEDS ORDERED: VANCOMYCIN HCL INJ 1000 MG VIAL ONE (19:43)
[2017-04-06 20:05] LABS: PROTHROMBIN TIME 13.4 SEC (11.4-15.4)
[2017-04-06] MEDS ORDERED: BACITRACIN ZINC OINTMENT 15 GM TP ONE (20:30)
[2017-04-06] MEDS: CLINDAMYCIN 600 MG/D5W RTU 600 MG/50 ML RTUPB IV SCH (21:22)
[2017-04-06] MEDS: METOPROLOL SUCCINATE 50 MG TAB.SR.24H PO SCH (21:23)
[2017-04-06] MEDS: ATORVASTATIN CALCIUM 40 MG TABLET PO SCH (21:23)
[2017-04-06] MEDS: IPRATROPIUM/ALBUTEROL 0.5-2.5 MG/3 ML AMPUL NEB PRN (21:27)
[2017-04-06] MEDS: VANCOMYCIN HCL 500 MG in DEXTROSE 5%-WATER 100 ML IV SCH (22:26)
[2017-04-06] MEDS: BUDESONIDE/FORMOTEROL 160-4.5 MCG 60 PUFF/6 GM MDI IH SCH (22:58)
[2017-04-07] MEDS: ACETAMINOPHEN 325 MG TABLET PO SCH ×5 (00:07→23:34)
[2017-04-07] MEDS: IMIPENEM/CILASTATIN SODIUM INJ 500 MG VIAL IV SCH ×2 (00:07→06:28)
[2017-04-07] MEDS: MORPHINE SULFATE 10 MG/ML INJ IV PRN ×5 (00:20→23:48)
[2017-04-07] MEDS: CLINDAMYCIN 600 MG/D5W RTU 600 MG/50 ML RTUPB IV SCH ×3 (05:39→21:46)
[2017-04-07 06:54] LABS: HEMATOCRIT 25.2 % (36.0-47.0); HEMOGLOBIN 8.1 g/dL (12.0-15.5); HGB HCT DIFFERENCE -0.9; MEAN CORPUSCULAR HEMOGLOBIN 30.7 pg (27.0-33.4); MEAN CORPUSCULAR HGB CONC 32.2 g/dL (32.0-36.0); MEAN CORPUSCULAR VOLUME 95 fl (80-97); RED BLOOD COUNT 2.64 10^6/uL (3.72-5.28); RED CELL DISTRIBUTION WIDTH 14.2 % (11.5-14.0); WHITE BLOOD COUNT 17.2 10^3/uL (4.0-10.5)
[2017-04-07 06:55] LABS: ANION GAP 9 (5-19); BLOOD UREA NITROGEN 41 mg/dL (7-20); CALCIUM 8.3 mg/dL (8.4-10.2); CARBON DIOXIDE 28 mmol/L (22-30); CHLORIDE 105 mmol/L (98-107); CREATININE RESULT 1.14 mg/dL (0.52-1.25); GLUCOSE 110 mg/dL (75-110); SODIUM 141.8 mmol/L (137-145)
[2017-04-07 07:03] LABS: POTASSIUM 4.4 mmol/L (3.6-5.0)
[2017-04-07 07:22] LABS: BAND NEUTROPHILS % (MANUAL) 7 % (3-5); BASOPHILS % (MANUAL) 0 % (0-2); EOSINOPHILS % (MANUAL) 0 % (0-6); LYMPHOCYTES % (MANUAL) 11 % (13-45); RBC MORPHOLOGY COMMENT NORMO-CYTIC/CHROMIC; TOTAL CELLS COUNTED 100; TOXIC GRANULATION 1+
--- NOTE | 2017-04-07 07:38 | EKG REPORT ---
SEVERITY:- ABNORMAL ECG - SINUS TACHYCARDIA WITH PACS SINUS TACHYCARDIA RIGHT BUNDLE BRANCH BLOCK : Confirmed by: Marco Ayon MD 07-Apr-2017 07:37:51
[2017-04-07] MEDS: IPRATROPIUM/ALBUTEROL 0.5-2.5 MG/3 ML AMPUL NEB PRN ×3 (08:43→22:10)
[2017-04-07] MEDS ORDERED: ENOXAPARIN SODIUM INJ 40 MG/0.4 ML DISP.SYRIN SUBCUT SCH ×2 (10:00→11:00)
[2017-04-07] MEDS ORDERED: VANCOMYCIN HCL INJ 1000 MG VIAL IV SCH (10:00)
[2017-04-07] MEDS: BUDESONIDE/FORMOTEROL 160-4.5 MCG 60 PUFF/6 GM MDI IH SCH ×2 (10:13→21:47)
[2017-04-07] MEDS ORDERED: IMIPENEM/CILASTATIN SODIUM INJ 500 MG VIAL IV SCH (10:23)
[2017-04-07] MEDS: BACITRACIN ZINC OINTMENT 15 GM TP SCH ×3 (11:01→17:48)
[2017-04-07] MEDS: METOPROLOL SUCCINATE 50 MG TAB.SR.24H PO SCH ×2 (11:01→21:47)
[2017-04-07] MEDS: LANSOPRAZOLE 30 MG TAB.RAP.DR PO SCH (11:02)
[2017-04-07] MEDS: CLOPIDOGREL BISULFATE 75 MG TABLET PO SCH (11:02)
[2017-04-07] MEDS ORDERED: ENOXAPARIN SODIUM INJ 30 MG/0.3 ML DISP.SYRIN SUBCUT ONE (11:30)
--- NOTE | 2017-04-07 12:15 | PDOC PROGRESS REPORT ---
Subjective Progress Note for:: 04/07/17 Subjective:: patient has no c/o Physical Exam Vital Signs: Temp Pulse Resp BP Pulse Ox 98.4 F 92 20 111/48 L 92 04/07/17 07:28 04/07/17 08:43 04/07/17 08:43 04/07/17 07:28 04/07/17 08:43 Intake & Output 04/06/17 04/07/17 04/08/17 06:59 06:59 06:59 Intake Total 1350 Balance 1350 Weight 42.4 kg Respiratory exam: PRESENT: clear to auscultation brendon Cardiovascular exam: PRESENT: irregular rhythm GI/Abdominal exam: PRESENT: soft Extremities exam: PRESENT: other - RLE: improved edema, no erythema, wound clean without odor or drainage Results Laboratory Results: 04/07/17 05:18 04/07/17 05:18 04/07/17 04/07/17 05:18 05:18 WBC 17.2 H RBC 2.64 L Hgb 8.1 L Hct 25.2 L MCV 95 MCH 30.7 MCHC 32.2 RDW 14.2 H Plt Count 323 Seg Neutrophils % Not Reportable Lymphocytes % Not Reportable Monocytes % Not Reportable Eosinophils % Not Reportable Basophils % Not Reportable Absolute Neutrophils Not Reportable Absolute Lymphocytes Not Reportable Absolute Monocytes Not Reportable Absolute Eosinophils Not Reportable Absolute Basophils Not Reportable Sodium 141.8 Potassium 4.4 D Chloride 105 Carbon Dioxide 28 Anion Gap 9 BUN 41 H Creatinine 1.14 Est GFR ( Amer) 56 L Est GFR (Non-Af Amer) 46 L Glucose 110 Calcium 8.3 L Impressions: Venous Doppler Study 04/06/17 14:15 IMPRESSION: NO EVIDENCE OF DVT OR SVT IN THE RIGHT LEG. Lower Extremity CT 04/06/17 17:24 IMPRESSION: No focal deep tissue fluid collections. No soft tissue gas. Diffuse right lower leg cellulitis with skin thickening, and subcutaneous edema. Assessment & Plan - Diagnosis (2) Cellulitis Qualifiers: Site of cellulitis: extremity Site of cellulitis of extremity: lower extremity Laterality: left Qualified Code(s): L03.116 - Cellulitis of left lower limb - Plan Summary Plan Summary: A/ s/o dog bite Right lower leg in patient with severe PVD physical exam of the RLE shows marked improvement of wound appearance with marked decrease of edema and resolution of erythema Right leg stil tender on palpation WBC decreased down to 17K Improved kidney function (BUN 41, creatinine 1.1) following IV hydration P/ Continue bedrest and RLE elevation Continue IV antibiotics Continue IV hydration till renal function has normalized Daily wound care as ordered with topical antibiotics
[2017-04-07] MEDS: IMIPENEM IV SCH ×3 (12:59→23:34)
[2017-04-07] MEDS: CILASTATIN SODIUM IV SCH ×3 (12:59→23:34)
[2017-04-07] MEDS: NORMAL SALINE IV SCH ×3 (12:59→23:34)
[2017-04-07] MEDS ORDERED: NITROGLYCERIN 0.4 MG/TAB 25 TAB/BOTTLE SL PRN (14:36)
[2017-04-07] MEDS ORDERED: MORPHINE SULFATE 10 MG/ML INJ IV PRN (15:04)
[2017-04-07] MEDS ORDERED: ONDANSETRON HCL INJ/PF 4 MG/2 ML SDV IV PRN (15:05)
[2017-04-07] MEDS ORDERED: DEXAMETHASONE SOD PHOS INJ 10 MG/1 ML VIAL IV ONE (15:05)
[2017-04-07] MEDS ORDERED: PANTOPRAZOLE SODIUM 40 MG VIAL IV ONE (15:06)
--- NOTE | 2017-04-07 16:57 | PDOC PROGRESS REPORT ---
Subjective Progress Note for:: 04/07/17 Subjective:: Patient reports significant nausea and does dry heaves when I am there. She is passing flatus but has not had a bowel movement. Patient does have a history of C. difficile colitis. Patient does report that her pain is uncontrolled. Patient does report that she is normally on prednisone 5 mg p.o. twice daily. She also reports that she has subsequently developed a GI bleed with that. Physical Exam Vital Signs: Temp Pulse Resp BP Pulse Ox 97.3 F 90 18 137/63 H 100 04/07/17 11:31 04/07/17 11:31 04/07/17 11:31 04/07/17 11:31 04/07/17 11:31 Intake & Output 04/06/17 04/07/17 04/08/17 06:59 06:59 06:59 Intake Total 1350 647 Balance 1350 647 Weight 42.4 kg Exam: General: Awake alert and oriented x3, no acute respiratory distress, mild pain, nausea HEENT: AT/NC, PERRL, EOMI, oropharynx is moist, pink, no scleral icterus, no conjunctival injection Neck: No JVD, trachea midline Chest: Prolonged exporatory phase, Clear to auscultation bilaterally, no wheezes , rhonchi, or rales CV: Regular rate and rhythm, normal S1 and S2, no murmur, rub, or gallop Abdomen: Soft, nontender to palpation, nondistended, active bowel sounds; no rebound, rigidity, or guarding Extremities: No cyanosis, + clubbing, no edema, arthritic changes Neuro: Cranial nerves II through XII are grossly intact without focal deficits; awake alert and oriented x3 Psych: Normal mood and affect Skin: hot erythematous RLE Results Laboratory Results: 04/07/17 05:18 04/07/17 05:18 04/07/17 04/07/17 05:18 05:18 WBC 17.2 H RBC 2.64 L Hgb 8.1 L Hct 25.2 L MCV 95 MCH 30.7 MCHC 32.2 RDW 14.2 H Plt Count 323 Seg Neutrophils % Not Reportable Lymphocytes % Not Reportable Monocytes % Not Reportable Eosinophils % Not Reportable Basophils % Not Reportable Absolute Neutrophils Not Reportable Absolute Lymphocytes Not Reportable Absolute Monocytes Not Reportable Absolute Eosinophils Not Reportable Absolute Basophils Not Reportable Sodium 141.8 Potassium 4.4 D Chloride 105 Carbon Dioxide 28 Anion Gap 9 BUN 41 H Creatinine 1.14 Est GFR ( Amer) 56 L Est GFR (Non-Af Amer) 46 L Glucose 110 Calcium 8.3 L Impressions: Venous Doppler Study 04/06/17 14:15 IMPRESSION: NO EVIDENCE OF DVT OR SVT IN THE RIGHT LEG. Lower Extremity CT 04/06/17 17:24 IMPRESSION: No focal deep tissue fluid collections. No soft tissue gas. Diffuse right lower leg cellulitis with skin thickening, and subcutaneous edema. Assessment & Plan - Diagnosis (1) Sepsis affecting skin Is this a current diagnosis for this admission?: Yes Plan: Patient met criteria on admission with leukocytosis, tachypnea, and leg as source Keep map >65 Unable to tolerate large amounts of volume (2) Cellulitis of right leg Is this a current diagnosis for this admission?: Yes Plan: Agree with antibiotic therapy Defer to the primary team (3) Acute renal failure superimposed on stage 3 chronic kidney disease Qualifiers: Acute renal failure type: unspecified Qualified Code(s): N17.9 - Acute kidney failure, unspecified; N18.3 - Chronic kidney disease, stage 3 (moderate) Is this a current diagnosis for this admission?: Yes Plan: Resolved with fluids (4) Hyperkalemia Is this a current diagnosis for this admission?: Yes Plan: resolved (5) Peripheral vascular disease Is this a current diagnosis for this admission?: Yes Plan: Will make would healing difficult (6) COPD (chronic obstructive pulmonary disease) Qualifiers: COPD type: chronic bronchitis Chronic bronchitis type: unspecified Qualified Code(s): J42 - Unspecified chronic bronchitis Is this a current diagnosis for this admission?: Yes Plan: Currently stable Continue current medications (7) Anemia of chronic disease Is this a current diagnosis for this admission?: Yes (8) Anxiety Is this a current diagnosis for this admission?: Yes (9) Essential hypertension Is this a current diagnosis for this admission?: Yes (10) GERD (gastroesophageal reflux disease) Qualifiers: Esophagitis presence: without esophagitis Qualified Code(s): K21.9 - Gastro -esophageal reflux disease without esophagitis Is this a current diagnosis for this admission?: Yes (11) Oxygen dependent Is this a current diagnosis for this admission?: Yes (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
[2017-04-07] MEDS: PREDNISONE 5 MG TABLET PO SCH (17:49)
[2017-04-07] MEDS: LACTOBACILLUS ACIDOPHILUS 250 MG TAB PO SCH (17:49)
[2017-04-07] MEDS: ATORVASTATIN CALCIUM 40 MG TABLET PO SCH (21:48)
[2017-04-07] MEDS ORDERED: (PENDING PHARMACY ID) (Metoprolol Succinate [Toprol Xl 100 Mg Tablet] 50 MG) PO SCH (22:00)
[2017-04-08] MEDS: CLINDAMYCIN 600 MG/D5W RTU 600 MG/50 ML RTUPB IV SCH ×3 (05:15→21:05)
[2017-04-08] MEDS: ACETAMINOPHEN 325 MG TABLET PO SCH ×4 (05:16→23:50)
[2017-04-08 06:27] LABS: ANION GAP 7 (5-19); BLOOD UREA NITROGEN 28 mg/dL (7-20); CALCIUM 8.1 mg/dL (8.4-10.2); CARBON DIOXIDE 25 mmol/L (22-30); CHLORIDE 110 mmol/L (98-107); CREATININE RESULT 0.75 mg/dL (0.52-1.25); GLUCOSE 105 mg/dL (75-110); POTASSIUM 5.2 mmol/L (3.6-5.0); SODIUM 142.1 mmol/L (137-145)
[2017-04-08 06:31] LABS: HEMOGLOBIN 8.1 g/dL (12.0-15.5); HGB HCT DIFFERENCE -0.7; MEAN CORPUSCULAR HEMOGLOBIN 31.5 pg (27.0-33.4); MEAN CORPUSCULAR HGB CONC 32.5 g/dL (32.0-36.0); MEAN CORPUSCULAR VOLUME 97 fl (80-97); RED BLOOD COUNT 2.58 10^6/uL (3.72-5.28); RED CELL DISTRIBUTION WIDTH 14.4 % (11.5-14.0)
[2017-04-08 06:41] LABS: BAND NEUTROPHILS % (MANUAL) 5 % (3-5); BASOPHILS % (MANUAL) 0 % (0-2); EOSINOPHILS % (MANUAL) 0 % (0-6); LYMPHOCYTES % (MANUAL) 2 % (13-45); TOTAL CELLS COUNTED 100
[2017-04-08 06:43] LABS: ANISOCYTOSIS SLIGHT; BURR CELLS 2+; OVALOCYTES SLIGHT; TOXIC GRANULATION 2+
[2017-04-08] MEDS: NORMAL SALINE IV SCH ×4 (06:48→23:49)
[2017-04-08] MEDS: CILASTATIN SODIUM IV SCH ×4 (06:48→23:49)
[2017-04-08] MEDS: IMIPENEM IV SCH ×4 (06:48→23:49)
[2017-04-08] MEDS: FUROSEMIDE 20 MG TABLET PO SCH (08:23)
[2017-04-08] MEDS: HYDROCODONE/ACETAMINOPHEN 5-325 MG TABLET PO PRN ×2 (08:23→16:16)
[2017-04-08] MEDS: PREDNISONE 5 MG TABLET PO SCH (09:07)
[2017-04-08] MEDS: DOCUSATE SODIUM 100 MG CAPSULE PO SCH (09:07)
[2017-04-08] MEDS: ASPIRIN 81 MG TABLET, ENT COATED PO SCH (09:07)
[2017-04-08] MEDS: BUDESONIDE/FORMOTEROL 160-4.5 MCG 60 PUFF/6 GM MDI IH SCH ×2 (09:11→21:09)
[2017-04-08] MEDS: METOPROLOL SUCCINATE 50 MG TAB.SR.24H PO SCH ×2 (09:16→21:05)
[2017-04-08] MEDS: LANSOPRAZOLE 30 MG TAB.RAP.DR PO SCH (09:17)
[2017-04-08] MEDS: LACTOBACILLUS ACIDOPHILUS 250 MG TAB PO SCH ×2 (09:17→18:14)
[2017-04-08] MEDS: CLOPIDOGREL BISULFATE 75 MG TABLET PO SCH (09:17)
[2017-04-08] MEDS: BACITRACIN ZINC OINTMENT 15 GM TP SCH ×3 (09:18→18:02)
[2017-04-08] MEDS ORDERED: ENOXAPARIN SODIUM INJ 30 MG/0.3 ML DISP.SYRIN SUBCUT SCH (10:00)
[2017-04-08] MEDS: IPRATROPIUM/ALBUTEROL 0.5-2.5 MG/3 ML AMPUL NEB PRN (12:10)
--- NOTE | 2017-04-08 14:17 | PDOC PROGRESS REPORT ---
Subjective Progress Note for:: 04/08/17 Subjective:: Patient short of breath, denies right leg pain Physical Exam Vital Signs: Temp Pulse Resp BP Pulse Ox 97.8 F 102 H 16 143/75 H 96 04/08/17 07:20 04/08/17 12:10 04/08/17 12:10 04/08/17 07:20 04/08/17 12:10 Intake & Output 04/07/17 04/08/17 04/09/17 06:59 06:59 06:59 Intake Total 1350 2515 Output Total 1500 Balance 1350 1015 Weight 42.4 kg 42.1 kg Skin exam: PRESENT: skin tears - right leg: wound with blistering, drainage, no odor, dark discoloration of skin of the posterior aspect lower half, no erythema, no edema Results Laboratory Results: 04/08/17 04:38 04/08/17 04:38 04/07/17 04/08/17 04/08/17 15:30 04:38 04:38 WBC 14.0 H RBC 2.58 L Hgb 8.1 L Hct 25.0 L MCV 97 MCH 31.5 MCHC 32.5 RDW 14.4 H Plt Count 343 Seg Neutrophils % Not Reportable Lymphocytes % Not Reportable Monocytes % Not Reportable Eosinophils % Not Reportable Basophils % Not Reportable Absolute Neutrophils Not Reportable Absolute Lymphocytes Not Reportable Absolute Monocytes Not Reportable Absolute Eosinophils Not Reportable Absolute Basophils Not Reportable Sodium 142.1 Potassium 5.2 H Chloride 110 H Carbon Dioxide 25 Anion Gap 7 BUN 28 H Creatinine 0.75 Est GFR ( Amer) > 60 Est GFR (Non-Af Amer) > 60 Glucose 105 Calcium 8.1 L Blood Type O POSITIVE Antibody Screen NEGATIVE Impressions: Venous Doppler Study 04/06/17 14:15 IMPRESSION: NO EVIDENCE OF DVT OR SVT IN THE RIGHT LEG. Lower Extremity CT 04/06/17 17:24 IMPRESSION: No focal deep tissue fluid collections. No soft tissue gas. Diffuse right lower leg cellulitis with skin thickening, and subcutaneous edema. Assessment & Plan - Diagnosis (2) Cellulitis Qualifiers: Site of cellulitis: extremity Site of cellulitis of extremity: lower extremity Laterality: left Qualified Code(s): L03.116 - Cellulitis of left lower limb - Plan Summary Plan Summary: A/ s/p dog bite Right lower leg in patient with severe PVD physical exam of the RLE shows marked improvement of wound appearance with marked decrease of edema and resolution of erythema Right leg wound shows dark discoloration, blisetring, and drainage w/o odor Attempted bedside debridment shows subcutaneous cavitation with purulent drainage WBC decreased down to 14K Improved kidney function (BUN 28, creatinine 0.7) following IV hydration P/ Continue bedrest and RLE elevation Continue IV antibiotics Continue IV hydration till renal function has normalized To OR tomorrow for debridment right lower leg wound and WoundVac application
--- NOTE | 2017-04-08 14:24 | Operative Report ---
Operative Report DATE OF SURGERY: 04/08/17 Operative Report: Right leg wound bedside debridment PREOPERATIVE DIAGNOSIS: Dog bite right lower leg. Right lower leg wound POSTOPERATIVE DIAGNOSIS: Same. Full thickness skin necrosis right lower leg OPERATION: Full thickness sharp debridment down to subcutaneous fat measuring 2 cm x 2 cm right posterior leg skin SURGEON: AIRAM AQUINO COMPLICATIONS: none ESTIMATED BLOOD LOSS: none INTRAOPERATIVE FINDINGS: full thickness necrosis right lower leg skin PROCEDURE: This was done at bedside. The right lower leg skin wound was prepped with Betadine and scissors were used to debride 2x2 cm of full thickness skin of the posterior aspect down to subcutaneous fat. A large subcutaneous cavitation was noted with pus. Cultures were taken. The procedure was interrupted and the area covered with Betadine soaked 4x4 and Kerlex. The patient tolerated the procedure well. Plan to take the patient to Surgery tomorrow.
[2017-04-08] MEDS ORDERED: DEXTROSE 50%-WATER 25 GM/50 ML DISP.SYRIN IV PRN ×2 (14:27)
[2017-04-08] MEDS ORDERED: DEXTROSE 40% GEL 15 GM TUBE PO PRN ×2 (14:27)
[2017-04-08] MEDS ORDERED: GLUCAGON,HUMAN RECOMB 1 MG INJ SUBCUT PRN (14:27)
[2017-04-08] MEDS ORDERED: NORMAL SALINE 1000 ML 1,000 ML IV PRN (14:30)
--- NOTE | 2017-04-08 15:49 | PDOC PROGRESS REPORT ---
Subjective Progress Note for:: 04/08/17 Subjective:: Patient reports significant shortness of breath after returning from the bedside commode. She is passing flatus but has not had a bowel movement. Patient does have a history of C. difficile colitis. Denies chest pain, nausea, vomiting, fever, chills, lower extremity pain, weakness, abdominal pain. Physical Exam Vital Signs: Temp Pulse Resp BP Pulse Ox 97.8 F 102 H 16 143/75 H 96 04/08/17 07:20 04/08/17 12:10 04/08/17 12:10 04/08/17 07:20 04/08/17 12:10 Intake & Output 04/07/17 04/08/17 04/09/17 06:59 06:59 06:59 Intake Total 1350 2515 240 Output Total 1500 900 Balance 1350 1015 -660 Weight 42.4 kg 42.1 kg Exam: General: Awake alert and oriented x2, moderate tachypnea HEENT: AT/NC, PERRL, EOMI, oropharynx is moist, pink, no scleral icterus, no conjunctival injection Neck: No JVD, trachea midline Chest: Tachypnea, 5 word dyspena, Prolonged exporatory phase, Clear to auscultation bilaterally, no wheezes, rhonchi, or rales CV: Regular rate and rhythm, normal S1 and S2, no murmur, rub, or gallop Abdomen: Soft, nontender to palpation, nondistended, active bowel sounds; no rebound, rigidity, or guarding Extremities: No cyanosis, + clubbing, no edema, arthritic changes Neuro: Cranial nerves II through XII are grossly intact without focal deficits; awake alert and oriented x2 Psych: Normal mood and affect Results Laboratory Results: 04/08/17 04:38 04/08/17 04:38 04/07/17 04/08/17 04/08/17 15:30 04:38 04:38 WBC 14.0 H RBC 2.58 L Hgb 8.1 L Hct 25.0 L MCV 97 MCH 31.5 MCHC 32.5 RDW 14.4 H Plt Count 343 Seg Neutrophils % Not Reportable Lymphocytes % Not Reportable Monocytes % Not Reportable Eosinophils % Not Reportable Basophils % Not Reportable Absolute Neutrophils Not Reportable Absolute Lymphocytes Not Reportable Absolute Monocytes Not Reportable Absolute Eosinophils Not Reportable Absolute Basophils Not Reportable Sodium 142.1 Potassium 5.2 H Chloride 110 H Carbon Dioxide 25 Anion Gap 7 BUN 28 H Creatinine 0.75 Est GFR ( Amer) > 60 Est GFR (Non-Af Amer) > 60 Glucose 105 Calcium 8.1 L Blood Type O POSITIVE Antibody Screen NEGATIVE Impressions: Venous Doppler Study 04/06/17 14:15 IMPRESSION: NO EVIDENCE OF DVT OR SVT IN THE RIGHT LEG. Lower Extremity CT 04/06/17 17:24 IMPRESSION: No focal deep tissue fluid collections. No soft tissue gas. Diffuse right lower leg cellulitis with skin thickening, and subcutaneous edema. Assessment & Plan - Diagnosis (1) Sepsis affecting skin Is this a current diagnosis for this admission?: Yes Plan: Patient met criteria on admission with leukocytosis, tachypnea, and cellulitis as source Keep map >65 Unable to tolerate large amounts of volume (2) Cellulitis of right leg Is this a current diagnosis for this admission?: Yes Plan: Agree with antibiotic therapy Defer to the primary team Cultures currently negative (3) Acute renal failure superimposed on stage 3 chronic kidney disease Qualifiers: Acute renal failure type: unspecified Qualified Code(s): N17.9 - Acute kidney failure, unspecified; N18.3 - Chronic kidney disease, stage 3 (moderate) Is this a current diagnosis for this admission?: Yes Plan: Resolved with fluids (4) Hyperkalemia Is this a current diagnosis for this admission?: Yes Plan: Concern at this time for cortisol deficiency or disruption of renin- angiotension system. Random cortisol level appears to be decreased for patient with this level of illness. Obtain renin level and aldosterone Obtain UA for urine pH Have stopped MARIEL and spironolactone (5) Peripheral vascular disease Is this a current diagnosis for this admission?: Yes Plan: Will make would healing difficult (6) COPD (chronic obstructive pulmonary disease) Qualifiers: COPD type: chronic bronchitis Chronic bronchitis type: unspecified Qualified Code(s): J42 - Unspecified chronic bronchitis Is this a current diagnosis for this admission?: Yes Plan: Currently stable Increase prednisone due to concerns for adrenal insufficiency (7) Anemia of chronic disease Is this a current diagnosis for this admission?: Yes (8) Anxiety Is this a current diagnosis for this admission?: Yes Plan: Concern for CO2 retention and would avoid benzodiazepines QT too prolonged for haldol or atypicals Concern for fall with antihistimines (9) Essential hypertension Is this a current diagnosis for this admission?: Yes (10) GERD (gastroesophageal reflux disease) Qualifiers: Esophagitis presence: without esophagitis Qualified Code(s): K21.9 - Gastro -esophageal reflux disease without esophagitis Is this a current diagnosis for this admission?: Yes (11) Oxygen dependent Is this a current diagnosis for this admission?: Yes (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 Is this a current diagnosis for this admission?: Yes Plan: Increase prednisone due to concerns for adrenal insufficiency (13) Pulmonary hypertension, moderate to severe Is this a current diagnosis for this admission?: Yes Plan: Patient had echo on 03/02/16 which revealed an EF of 50%, severe MR, moderate pulmonary hypertension 2/2 to COPD Continue O2 (14) Chronic systolic (congestive) heart failure Is this a current diagnosis for this admission?: Yes Plan: Patient had echo on 03/02/16 which revealed an EF of 50%, severe MR, moderate pulmonary hypertension Be judicious with fluid and continue home lasix (15) DNR (do not resuscitate) Is this a current diagnosis for this admission?: Yes
[2017-04-08 16:04] LABS: APPEARANCE,URINE CLEAR; BILIRUBIN,URINE NEGATIVE (NEGATIVE); GLUCOSE, URINE 50 mg/dL (NEGATIVE); KETONES,URINE NEGATIVE (NEGATIVE); LEUKOCYTE ESTERASE,URINE NEGATIVE (NEGATIVE); NITRITE,URINE NEGATIVE (NEGATIVE); PROTEIN,URINE NEGATIVE (NEGATIVE); URINE SPECIFIC GRAVITY 1.008; UROBILINOGEN,URINE NEGATIVE mg/dL (<2.0)
[2017-04-08] MEDS ORDERED: PREDNISONE 5 MG TABLET PO SCH (18:00)
[2017-04-08] MEDS: IPRATROPIUM/ALBUTEROL 0.5-2.5 MG/3 ML AMPUL NEB SCH (19:47)
[2017-04-08] MEDS: VANCOMYCIN HCL 500 MG in DEXTROSE 5%-WATER 100 ML IV SCH (21:04)
[2017-04-08] MEDS: ATORVASTATIN CALCIUM 40 MG TABLET PO SCH (21:10)
[2017-04-09] MEDS: IPRATROPIUM/ALBUTEROL 0.5-2.5 MG/3 ML AMPUL NEB SCH ×4 (03:00→20:41)
[2017-04-09 05:30] LABS: HEMATOCRIT 30.8 % (36.0-47.0); HEMOGLOBIN 9.7 g/dL (12.0-15.5); HGB HCT DIFFERENCE -1.7; MEAN CORPUSCULAR HEMOGLOBIN 30.5 pg (27.0-33.4); MEAN CORPUSCULAR HGB CONC 31.6 g/dL (32.0-36.0); MEAN CORPUSCULAR VOLUME 97 fl (80-97); RED BLOOD COUNT 3.19 10^6/uL (3.72-5.28); RED CELL DISTRIBUTION WIDTH 14.1 % (11.5-14.0); WHITE BLOOD COUNT 26.5 10^3/uL (4.0-10.5)
[2017-04-09 05:45] LABS: ANION GAP 12 (5-19); BLOOD UREA NITROGEN 32 mg/dL (7-20); CALCIUM 9.1 mg/dL (8.4-10.2); CARBON DIOXIDE 25 mmol/L (22-30); CHLORIDE 98 mmol/L (98-107); CREATININE RESULT 0.99 mg/dL (0.52-1.25); GLUCOSE 139 mg/dL (75-110); POTASSIUM 5.6 mmol/L (3.6-5.0); SODIUM 134.6 mmol/L (137-145)
[2017-04-09 06:14] LABS: BASOPHILS % (MANUAL) 0 % (0-2); EOSINOPHILS % (MANUAL) 0 % (0-6); LYMPHOCYTES % (MANUAL) 4 % (13-45); TOTAL CELLS COUNTED 100
[2017-04-09 06:17] LABS: ANISOCYTOSIS SLIGHT; BURR CELLS SLIGHT; OVALOCYTES SLIGHT; POIKILOCYTOSIS SLIGHT; POLYCHROMASIA SLIGHT; TOXIC GRANULATION 1+
[2017-04-09] MEDS: ACETAMINOPHEN 325 MG TABLET PO SCH ×4 (06:25→23:19)
[2017-04-09] MEDS ORDERED: LIDOCAINE 1% INJ-PF (10 MG/ML) 30 ML SDV ONE (07:21)
--- NOTE | 2017-04-09 08:46 | Physician Advisory Note ---
Physician Advisor ProgressNote .: [facility] reviewed the medical record for this patient. Physician Advisor Statement: Attending, please consider documenting, if you agree - feel free to adjust documentation recommendations based on your clinical impressions: 1. Status: appropriate to change to Inpatient status, given ongoing tachycardia and leukocytosis, continued concern about wound & renal fn, risks for developing acute syst/diast CHF from IVF needed for ARF/infection/BP support ... 2. "Acute Renal Failure" ["worsening kidney failure" isn't specific enough to capture this co-morbidity] 3. ? -"Acute on chronic Hypoxemic Respiratory Failure" & "Acute systolic/ diastolic CHF" now? - (+) "Chronic Hypoxemic Respiratory Failure requiring 2L O2 and steroids at baseline" - (+) Chronic systolic/diastolic CHF" 4. ? - "Possible sepsis, present on admission, due to cellulitis/abscess, evidenced by leukocytosis, tachycardia, tachypnea, hypotension with MAP as low as 71 & 69, ARF, worsened respiratory failure." - Please state whether you think sepsis was "possible" in your mind clinically, or "not likely clinically", to avoid a query. 5. "underweight with [mod-sev] protein-calorie malnutrition w/ BMI 17.0, __ pound unintentional wt loss over last several months,__[ ?appetite loss, ]" [if possible, give specifics on intake, wt loss, loss of SQ fat & muscle mass, diminished hand clinical trial associate strength, & clinical importance such as (A) nutritional assessment ordered, (B ) modified diet or supplements ordered, (C) additional labs ordered, (D) prolonged wound healing time, (E) delayed infxn clearance] 6. "Acute hyponatremia, mild, likely due to " 7. "Anemia of chronic kidney disease" 8. "Persistent Afib" or "Paroxysmal Afib" Status: Appropriate for Inpatient status by 04/07. See below. Discussion: 76yo Medicare pt with underlying __ type Afib, HTN, PVD, COPD w/ chronic hypoxemic resp failure requiring O2 & prednisone at baseline, chronic systolic CHF [EF 50% w/severe MR, so could say "chronic systolic & diastolic-due -lb-dwpcbala-rl CHF", or more simply, "chr syst & diast CHF"], mod pulmonary hypertension, mod-sev malnutrition with unintentional wt loss over past several months per technical services consultant, past CVA - came in 04/06 due to dog bite wound with drainage, blistering, redness, pain, crepitus, edema, - HR 90s, RR18-24, BP 115/49, MAP as low as 71 & 69, WBC 22.3, Na 136, K 5.9, BUN 52, Cr 1.55. ED attending was concerned for possible necrotizing fasciitis initially. Pt was given Lasix bolus in ED., which concerned hospitalist due to ARF. Attending ordered 2 IVF boluses & continuous NS IV (which could cause systolic CHF exacerb), f/u labs. After 1 night of aggressive care, pt w/marked improvement but still quite tender to palpation, still w/leukocytosis, still w/tachycardia persistent, having nausea w/dry heaves, pain uncontrolled. She clearly still needed more time in hospital care on IV abx & close monitoring of wound. Jewelry Mold Maker, concerned for possible sepsis, noted need to keep BP up, but pt "unable to tolerate large amounts of volume" [due to CHF above]. After 2nd night of hospital care, on 04/08, pt SOB, tachycardic still, still w/ leukocytosis, worsened hyperkalemia again, with cavitation on pus found on bedside debridement attempt, attending finding need for more extensive procedure in OR, took cultures to help guide tx. Jewelry Mold Maker noted patient significantly SOB just returning from bedside commode, with moderate tachypnea and 5 word dyspnea, and increased prednisone due to concerns for adrenal insufficiency. Meanwhile, pt at high risk for developing Acute on Chronic syst/ diast CHF and Acute on Chronic Hypoxemic Respiratory Failure, due to continued IVF + increased steroids. She developed hypoxemia of as low as 82% on 1.5L O2. She was documented to have labored breathing, tachypnea. She still needs OR debridement, and the IVF likely to be needed for BP support intraoperatively could definitely worsen her breathing status, which already seems to be worsening. Severity of illness high, intensity of service high. Not just "typical cellulitis" case. Thanks! CK
[2017-04-09] MEDS ORDERED: FENTANYL CITRATE INJ/PF 100 MCG/2 ML AMPUL ONE (09:51)
[2017-04-09] MEDS ORDERED: KETAMINE HCL INJ 500 MG/10 ML VIAL ONE (09:51)
[2017-04-09] MEDS ORDERED: MIDAZOLAM 2 MG/2 ML INJ ONE (09:52)
[2017-04-09] MEDS ORDERED: PROPOFOL INJ 200 MG/20 ML VIAL IV ONE (09:52)
[2017-04-09] MEDS ORDERED: DEXMEDETOMIDINE INJ 80 MCG/20 ML VIAL IV ONE (09:52)
[2017-04-09] MEDS: IMIPENEM IV SCH ×4 (10:14→23:20)
[2017-04-09] MEDS: CLINDAMYCIN 600 MG/D5W RTU 600 MG/50 ML RTUPB IV SCH ×3 (10:14→21:31)
[2017-04-09] MEDS: CILASTATIN SODIUM IV SCH ×4 (10:14→23:20)
[2017-04-09] MEDS: NORMAL SALINE IV SCH ×4 (10:14→23:20)
--- NOTE | 2017-04-09 10:35 | RADIOLOGY REPORT (SQ) ---
EXAM DESCRIPTION: PICC INSERTION COMPLETED DATE/TIME: 04/09/2017 9:30 am REASON FOR STUDY: need of IV access COMPARISON: None. EXAM PARAMETERS: NUMBER OF VIEWS: One view. TECHNIQUE: Digital Frontal radiographic views of the chest acquired. RADIATION DOSE: NA LIMITATIONS: None. FINDINGS: A SINGLE IMAGE OBTAINED WITH FLUORO SHOWS A PICC LINE COMING FROM THE LEFT. THE TIP OF TH E CATHETER IS IN THE SUPERIOR VENA CAVA. IMPRESSION: PICC LINE PLACEMENT DESCRIBED. TECHNICAL DOCUMENTATION: JOB ID: [id number] [employer]- All Rights Reserved
--- NOTE | 2017-04-09 11:05 | OPERATIVE REPORT E ---
Operative Report NAME: MIKEL CHOPRA : 1940 AGE: 76Y DATE OF SURGERY: 04/09/2017 ROOM: 528 PREOPERATIVE DIAGNOSIS: Open right lower extremity wound, medial aspect, with devitalized tissue and pus. POSTOPERATIVE DIAGNOSIS: Open right lower extremity wound, medial aspect, with devitalized tissue and pus. PROCEDURES: 1. Culture of open wound. 2. Excision and debridement of skin, subcutaneous tissue, and fascia, with sharp tenotomy scissors and knife blade wound irrigation. 3. Placement of wound VAC. SURGEON: TAMEKA KAUFFMAN M.D. ANESTHESIA: Conscious sedation. COMPLICATIONS: None. ESTIMATED BLOOD LOSS: Minimal. DRAINS: None. TISSUE REMOVED OR ALTERED: Devitalized tissue. SUMMARY OF PROCEDURE: The patient was taken to the operating room where DNR status was suspended, right lobe was exposed, dressing removed. Surgical timeout was conducted. Right lobe was significant for a purulent open wound medial aspect right leg above the medial malleolus. This consisted of a 3 cm open wound distally, and a section of devitalized skin flap proximally. The skin was anesthetized with 1% lidocaine without epinephrine. An excisional debridement was performed using scissors and #10 blade excising the entire perimeter of the wound, now leaving an open wound approximately 3 x 7 cm in length, down to the fascia. Underlying superficial veins and nerves were preserved as best they could be. The wound was vigorously irrigated with Betadine after culturing the wound, then with saline. Wound VAC sponge was placed into position, adhesive dressings applied and wound VAC attached to suction and proprietary pump as directed. Patient tolerated procedure well. She was taken to recovery room in stable condition. Of note, the patient had a paucity of arterial blood flowing to this open wound. Wound healing guarded. Further intervention, including limb amputation may be forthcoming. DICTATING PHYSICIAN: TAMEKA KAUFFMAN M.D. [id number] PHY#: [id number] ID: [id number] JOB#: [id number] ACCT: [id number] cc:TAMEKA KAUFFMAN M.D. >
[2017-04-09] MEDS ORDERED: NORMAL SALINE 10 ML SDV (AFTER EACH USE) IV PRN (12:35)
--- NOTE | 2017-04-09 13:27 | RADIOLOGY REPORT (SQ) ---
EXAM DESCRIPTION: U/S GUIDE FOR VASCULAR ACCESS; FLUORO/CV PLACEMENT COMPLETED DATE/TIME: 04/09/2017 9:31 am REASON FOR STUDY: IV ACCESS D50.0 IRON DEFICIENCY ANEMIA SECONDARY TO BLOOD LOSS (CHRONI COMPARISON: AP chest 02/04/2017, CT chest 02/04/2017 FLUOROSCOPY TIME: 9 seconds 1 ultrasound and 1 fluoroscopic images saved to PACS. TECHNIQUE: Fluoroscopic and ultrasound guided PICC placement. LIMITATIONS: None. PROCEDURE: After written consent and assessment were obtained, the patient was brought into the fluo roscopy room and place supine on the table. Ultrasound was used on the patient's left arm for PICC a ccess. The left arm was prepped and draped in a sterile fashion along with the ultrasound probe. The entry site was anesthetized with 2.5 mL of 1% lidocaine. A 21 gauge 7 cm needle was advanced through the skin and into the left basilic vein under live ultrasound guidance. An ultrasound image was save d to PACS confirming access site. A .018 guide wire was then inserted through the needle and into th e venous system. The needle was the removed and an 11 blade scalpel was used to make a 1cm skin incis ion. A 5 fr peel-away sheath was advanced over the wire and into the venous system. A measurement wa s then made using the existing wire and live fluoroscopic guidance. The wire was then removed and the trimmed. The PICC was advanced through the peel-away sheath and into the venous system. The peel-hugo y sheath was removed and the catheter was adhered to the patients arm with a stat lock. The catheter was then aspirated and flushed and a sterile bandage was placed over the access site. A fluoroscopic spot image was saved to PACS confirming the catheter tip within the superior vena cava. IMPRESSION: SUCCESSFUL PLACEMENT OF A 5 FR DUAL LUMEN 41 CM PICC IN THE left basilic VEIN. COMMENT: Patient medication list reviewed: Yes- Quality ID# [id number]:Eligible professional attests to doc umenting in the medical record they obtained, updated, or reviewed the patient's current medications. . Quality ID 145: Final reports for procedures using fluoroscopy that document radiation exposure tristan sorin, or exposure time and number of fluorographic images (if radiation exposure indices are not avail able) Quality ID #76: The patient was prepped and draped using maximum sterile barrier technique including cap, mask, sterile gown, sterile gloves, a large sterile sheet, hand hygiene, and 2% Chlorhexidine fo r cutaneous antisepsis. When ultrasound is used, sterile ultrasound techniques are followed requiring sterile gel and sterile probes. TECHNICAL DOCUMENTATION: JOB ID: [id number] [employer]- All Rights Reserved
[2017-04-09] MEDS: LACTOBACILLUS ACIDOPHILUS 250 MG TAB PO SCH ×2 (15:20→18:27)
[2017-04-09] MEDS: CLOPIDOGREL BISULFATE 75 MG TABLET PO SCH (15:21)
[2017-04-09] MEDS: METOPROLOL SUCCINATE 50 MG TAB.SR.24H PO SCH ×2 (15:21→21:30)
[2017-04-09] MEDS: FUROSEMIDE 20 MG TABLET PO SCH (15:21)
[2017-04-09] MEDS: ASPIRIN 81 MG TABLET, ENT COATED PO SCH (15:21)
[2017-04-09] MEDS: DOCUSATE SODIUM 100 MG CAPSULE PO SCH (15:22)
[2017-04-09] MEDS: BACITRACIN ZINC OINTMENT 15 GM TP SCH ×2 (15:22→18:53)
[2017-04-09] MEDS ORDERED: NORMAL SALINE 1000 ML 1,000 ML IV PRN (15:22)
[2017-04-09] MEDS ORDERED: HALOPERIDOL LACTATE INJ 5 MG/1 ML VIAL IV PRN (15:23)
[2017-04-09] MEDS ORDERED: CALCIUM GLUCONATE 1000 MG/10 ML INJ IV ONE ×2 (15:25→19:00)
[2017-04-09] MEDS ORDERED: SODIUM POLYSTYRENE SULFONATE 15 GM/60 ML PO ONE ×2 (15:30→19:00)
[2017-04-09] MEDS: BUDESONIDE/FORMOTEROL 160-4.5 MCG 60 PUFF/6 GM MDI IH SCH ×2 (15:30→21:31)
[2017-04-09] MEDS ORDERED: SODIUM BICARBONATE 8.4% INJ 50 MEQ/50 ML DISP.SYRIN IV ONE ×2 (15:40→19:00)
--- NOTE | 2017-04-09 16:33 | PDOC PROGRESS REPORT ---
Subjective Progress Note for:: 04/09/17 Subjective:: Patient is unarousable and in moderate respiratory distress when I see her after surgery. Son is at bedside Physical Exam Vital Signs: Temp Pulse Resp BP Pulse Ox 96.1 F L 93 24 H 121/50 L 92 04/09/17 11:55 04/09/17 14:01 04/09/17 15:45 04/09/17 12:25 04/09/17 15:45 Intake & Output 04/08/17 04/09/17 04/10/17 06:59 06:59 06:59 Intake Total 865 Output Total 245 Balance 620 Exam: General: unarousable, moderate respiratory distress HEENT: AT/NC, PERRL, EOMI, oropharynx is moist, pink, no scleral icterus, no conjunctival injection Neck: No JVD, trachea midline Chest: Tachypnea, shallow breathing with retractions, Prolonged exporatory phase , Clear to auscultation bilaterally, no wheezes, rhonchi, or rales CV: Regular rate and rhythm, normal S1 and S2, no murmur, rub, or gallop Abdomen: Soft, nontender to palpation, nondistended, active bowel sounds; no rebound, rigidity, or guarding Extremities: No cyanosis, + clubbing, no edema, arthritic changes Skin: Bilateral bandages c/d/i, wound vac in place Results Impressions: Venous Doppler Study 04/06/17 14:15 IMPRESSION: NO EVIDENCE OF DVT OR SVT IN THE RIGHT LEG. Lower Extremity CT 04/06/17 17:24 IMPRESSION: No focal deep tissue fluid collections. No soft tissue gas. Diffuse right lower leg cellulitis with skin thickening, and subcutaneous edema. Guidance Fluoroscopy 04/09/17 00:00 IMPRESSION: SUCCESSFUL PLACEMENT OF A 5 FR DUAL LUMEN 41 CM PICC IN THE left basilic VEIN. Interventional Vascular Procedure 04/09/17 00:00 IMPRESSION: SUCCESSFUL PLACEMENT OF A 5 FR DUAL LUMEN 41 CM PICC IN THE left basilic VEIN. PICC Line Insertion 04/09/17 00:00 IMPRESSION: PICC LINE PLACEMENT DESCRIBED. Assessment & Plan - Diagnosis (1) Acute and chronic respiratory failure Qualifiers: Respiratory failure complication: hypoxia and hypercapnia Qualified Code(s) : J96.21 - Acute and chronic respiratory failure with hypoxia; J96.22 - Acute and chronic respiratory failure with hypercapnia Is this a current diagnosis for this admission?: Yes Plan: Place patient on BiPAP. Her son reports that she will fight this. He agrees to the use of Haldol despite my previous admonitions regarding her QT interval, but in light of her current situation he is willing to try this at this time. He understands that this may shorten her life. (2) Sepsis affecting skin Is this a current diagnosis for this admission?: Yes Plan: Patient met criteria on admission with leukocytosis, tachypnea, and cellulitis as source Keep map >65 Unable to tolerate large amounts of volume (3) Cellulitis of right leg Is this a current diagnosis for this admission?: Yes Plan: Agree with antibiotic therapy Defer to the primary team Cultures growing gram + cocci (4) Acute renal failure superimposed on stage 3 chronic kidney disease Qualifiers: Acute renal failure type: unspecified Qualified Code(s): N17.9 - Acute kidney failure, unspecified; N18.3 - Chronic kidney disease, stage 3 (moderate) Is this a current diagnosis for this admission?: Yes Plan: Resolved with fluids (5) Hyperkalemia Is this a current diagnosis for this admission?: Yes Plan: Concern at this time for cortisol deficiency or disruption of renin- angiotension system. Random cortisol level appears to be decreased for patient with this level of illness. Obtain renin level and aldosterone urine pH=5 Possibly represents RTA type IV Have stopped MARIEL and spironolactone Give calcium, bicarbonate, and Kayexalate (6) Peripheral vascular disease Is this a current diagnosis for this admission?: Yes Plan: Patient with severe peripheral vascular disease. Patient has bilateral lower extremity wounds. At this time, I feel the patient has limited potential for full recovery and I have shared this thought with her son. He is going to consider the idea of comfort measures if he feels his mother is suffering. (7) COPD (chronic obstructive pulmonary disease) Qualifiers: COPD type: chronic bronchitis Chronic bronchitis type: unspecified Qualified Code(s): J42 - Unspecified chronic bronchitis Is this a current diagnosis for this admission?: Yes (8) Anemia of chronic disease Is this a current diagnosis for this admission?: Yes (9) Anxiety Is this a current diagnosis for this admission?: Yes (10) Essential hypertension Is this a current diagnosis for this admission?: Yes (11) GERD (gastroesophageal reflux disease) Qualifiers: Esophagitis presence: without esophagitis Qualified Code(s): K21.9 - Gastro -esophageal reflux disease without esophagitis Is this a current diagnosis for this admission?: Yes (12) Oxygen dependent Is this a current diagnosis for this admission?: Yes (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 Is this a current diagnosis for this admission?: Yes (14) Pulmonary hypertension, moderate to severe Is this a current diagnosis for this admission?: Yes (15) Chronic systolic (congestive) heart failure Is this a current diagnosis for this admission?: Yes Plan: Patient had echo on 03/02/16 which revealed an EF of 50%, severe MR, moderate pulmonary hypertension Be judicious with fluid and continue home lasix (16) DNR (do not resuscitate) Is this a current diagnosis for this admission?: Yes - Time Time Spent with patient: 35 or more minutes Medications reviewed and adjusted accordingly: Yes
[2017-04-09] MEDS: PREDNISONE 20 MG TABLET PO SCH (18:27)
[2017-04-09] MEDS ORDERED: VANCOMYCIN HCL 500 MG in DEXTROSE 5%-WATER 100 ML IV SCH (20:00)
[2017-04-09] MEDS: ATORVASTATIN CALCIUM 40 MG TABLET PO SCH (21:30)
[2017-04-09] MEDS: NORMAL SALINE 10 ML SDV (SCHEDULED) IV SCH (21:32)
[2017-04-10] MEDS: IPRATROPIUM/ALBUTEROL 0.5-2.5 MG/3 ML AMPUL NEB SCH ×3 (01:39→13:45)
[2017-04-10] MEDS ORDERED: HYDROCODONE/ACETAMINOPHEN 5-325 MG TABLET PO PRN (02:54)
[2017-04-10] MEDS: ACETAMINOPHEN 325 MG TABLET PO SCH ×2 (04:20→12:23)
[2017-04-10 04:26] LABS: VENOUS BLOOD BASE EXCESS -0.3 mmol/L; VENOUS BLOOD HCO3 28.8 mmol/L (20-32); VENOUS BLOOD PH 7.21 (7.30-7.42)
[2017-04-10 04:27] LABS: VENOUS BLOOD PCO2 73.9 mmHg (35-63)
[2017-04-10 04:36] LABS: HEMOGLOBIN 8.7 g/dL (12.0-15.5); HGB HCT DIFFERENCE -0.9; MEAN CORPUSCULAR HGB CONC 32.2 g/dL (32.0-36.0); MEAN CORPUSCULAR VOLUME 97 fl (80-97); RED CELL DISTRIBUTION WIDTH 14.3 % (11.5-14.0); WHITE BLOOD COUNT 25.2 10^3/uL (4.0-10.5)
[2017-04-10 04:38] LABS: ANION GAP 10 (5-19); BLOOD UREA NITROGEN 39 mg/dL (7-20); CALCIUM 8.6 mg/dL (8.4-10.2); CARBON DIOXIDE 27 mmol/L (22-30); CHLORIDE 101 mmol/L (98-107); CREATININE RESULT 1.34 mg/dL (0.52-1.25); GLUCOSE 99 mg/dL (75-110); POTASSIUM 5.2 mmol/L (3.6-5.0); SODIUM 138.4 mmol/L (137-145)
[2017-04-10] MEDS ORDERED: IMIPENEM/CILASTATIN SODIUM INJ 500 MG VIAL IV ONE (05:01)
[2017-04-10] MEDS: CLINDAMYCIN 600 MG/D5W RTU 600 MG/50 ML RTUPB IV SCH (05:02)
[2017-04-10 05:15] LABS: BAND NEUTROPHILS % (MANUAL) 3 % (3-5); BASOPHILS % (MANUAL) 0 % (0-2); EOSINOPHILS % (MANUAL) 0 % (0-6); LYMPHOCYTES % (MANUAL) 5 % (13-45); TOTAL CELLS COUNTED 100
[2017-04-10 05:22] LABS: ANISOCYTOSIS SLIGHT; BURR CELLS SLIGHT; OVALOCYTES 1+; PLATELET CLUMPS PRESENT; POIKILOCYTOSIS SLIGHT; POLYCHROMASIA SLIGHT; TOXIC GRANULATION 2+
[2017-04-10] MEDS: CILASTATIN SODIUM IV SCH ×2 (05:55→12:21)
[2017-04-10] MEDS: IMIPENEM IV SCH ×2 (05:55→12:21)
[2017-04-10] MEDS: NORMAL SALINE IV SCH ×2 (05:55→12:21)
[2017-04-10] MEDS ORDERED: LANSOPRAZOLE 30 MG TAB.RAP.DR PO SCH (06:00)
[2017-04-10] MEDS ORDERED: NORMAL SALINE 1000 ML 1,000 ML IV PRN (08:08)
[2017-04-10] MEDS: METOPROLOL SUCCINATE 50 MG TAB.SR.24H PO SCH (09:44)
[2017-04-10] MEDS: PREDNISONE 20 MG TABLET PO SCH (09:44)
[2017-04-10] MEDS: CLOPIDOGREL BISULFATE 75 MG TABLET PO SCH (09:44)
[2017-04-10] MEDS: ASPIRIN 81 MG TABLET, ENT COATED PO SCH (10:11)
[2017-04-10] MEDS: BUDESONIDE/FORMOTEROL 160-4.5 MCG 60 PUFF/6 GM MDI IH SCH (10:12)
[2017-04-10] MEDS: LACTOBACILLUS ACIDOPHILUS 250 MG TAB PO SCH (10:12)
[2017-04-10] MEDS: NORMAL SALINE 10 ML SDV (SCHEDULED) IV SCH (10:18)
[2017-04-10] MEDS: DOCUSATE SODIUM 100 MG CAPSULE PO SCH (10:20)
--- NOTE | 2017-04-10 11:57 | PDOC PROGRESS REPORT ---
Subjective Progress Note for:: 04/10/17 Subjective:: patient is obtunded, not arousable Physical Exam Vital Signs: Temp Pulse Resp BP Pulse Ox 97.7 F 103 H 34 H 116/54 L 94 04/10/17 07:59 04/10/17 07:59 04/10/17 08:30 04/10/17 07:59 04/10/17 08:33 Intake & Output 04/09/17 04/10/17 04/11/17 06:59 06:59 06:59 Intake Total 1381 Output Total 545 Balance 836 Weight 47 kg Respiratory exam: PRESENT: tachypnea Cardiovascular exam: PRESENT: RRR Extremities exam: PRESENT: other - RLE: WoundVac in place; extermity viable, warm with slow capillary refill Results Laboratory Results: 04/10/17 04:10 04/10/17 04:10 04/10/17 04/10/17 04/10/17 04:10 04:10 04:10 WBC 25.2 H RBC 2.80 L Hgb 8.7 L Hct 27.0 L MCV 97 MCH 31.0 MCHC 32.2 RDW 14.3 H Plt Count 468 H Seg Neutrophils % Not Reportable Lymphocytes % Not Reportable Monocytes % Not Reportable Eosinophils % Not Reportable Basophils % Not Reportable Absolute Neutrophils Not Reportable Absolute Lymphocytes Not Reportable Absolute Monocytes Not Reportable Absolute Eosinophils Not Reportable Absolute Basophils Not Reportable VBG pH 7.21 L VBG pCO2 73.9 H* VBG HCO3 28.8 VBG Base Excess -0.3 Sodium 138.4 Potassium 5.2 H Chloride 101 Carbon Dioxide 27 Anion Gap 10 BUN 39 H Creatinine 1.34 H Est GFR ( Amer) 46 L Est GFR (Non-Af Amer) 38 L Glucose 99 Calcium 8.6 Impressions: Venous Doppler Study 04/06/17 14:15 IMPRESSION: NO EVIDENCE OF DVT OR SVT IN THE RIGHT LEG. Lower Extremity CT 04/06/17 17:24 IMPRESSION: No focal deep tissue fluid collections. No soft tissue gas. Diffuse right lower leg cellulitis with skin thickening, and subcutaneous edema. Guidance Fluoroscopy 04/09/17 00:00 IMPRESSION: SUCCESSFUL PLACEMENT OF A 5 FR DUAL LUMEN 41 CM PICC IN THE left basilic VEIN. Interventional Vascular Procedure 04/09/17 00:00 IMPRESSION: SUCCESSFUL PLACEMENT OF A 5 FR DUAL LUMEN 41 CM PICC IN THE left basilic VEIN. PICC Line Insertion 04/09/17 00:00 IMPRESSION: PICC LINE PLACEMENT DESCRIBED. Assessment & Plan - Diagnosis (2) Cellulitis Qualifiers: Site of cellulitis: extremity Site of cellulitis of extremity: lower extremity Laterality: left Qualified Code(s): L03.116 - Cellulitis of left lower limb - Plan Summary Plan Summary: A/ General status deteriorated with patient obtunded and poorly responsive POD#1 after full thickness debridment of right leg wound and WoundVac placement s/p dog bite Right lower leg in patient with severe PVD physical exam of the RLE shows warm extemity WBC elevated 25K Still poor kidney function (BUN 39, creatinine 1.3) most likely secondary to vasculopathy and infection P/ Continue Right leg WoundVac Continue IV antibiotics Continue IV hydration No acute General Surgery issues identified at this time as the infected tissue has been removed and the RLE is viable; Rather, the deteriorated general condition is most likely secondary to the patient poor respiratory system (hypoxia and hypercarbia) Agree with comfort care if the family wishes it
[2017-04-10] MEDS: BACITRACIN ZINC OINTMENT 15 GM TP SCH (12:23)
[2017-04-10 13:29] VITALS: BP 91/58
[2017-04-10] MEDS ORDERED: METHYLPREDNISOLONE INJ 40 MG/1 ML SDV IV ONE (15:00)
[2017-04-10] MEDS ORDERED: FENTANYL 12 MCG/HR PATCH.TD72 TD ONE (15:30)
--- NOTE | 2017-04-10 15:44 | PDOC PROGRESS REPORT ---
Subjective Progress Note for:: 04/10/17 Subjective:: Patient did not really improve with Bipap overnight and never really regained awareness except to try to take the Bipap off according to the son. Patient was in moderate to severe respiratory distress when I see her. Physical Exam Vital Signs: Temp Pulse Resp BP Pulse Ox 97.7 F 109 H 34 H 91/58 L 95 04/10/17 12:08 04/10/17 13:45 04/10/17 13:45 04/10/17 12:08 04/10/17 13:45 Intake & Output 04/09/17 04/10/17 04/11/17 06:59 06:59 06:59 Intake Total 1381 Output Total 545 Balance 836 Weight 47 kg Exam: General: unarousable, moderate-severe respiratory distress HEENT: AT/NC, PERRL, EOMI, oropharynx is moist, pink, no scleral icterus, no conjunctival injection Neck: No JVD, trachea midline Chest: Tachypnea, shallow breathing with retractions, Prolonged exporatory phase , diminished RLL, accessory muscle usage CV: Tachycardic, Regular rate and rhythm, normal S1 and S2, no murmur, rub, or gallop Abdomen: Soft, nontender to palpation, nondistended, active bowel sounds; no rebound, rigidity, or guarding Extremities: No cyanosis, + clubbing, trace edema, arthritic changes Skin: Bilateral bandages c/d/i, wound vac in place Results Laboratory Results: 04/10/17 04:10 04/10/17 04:10 04/10/17 04/10/17 04/10/17 04:10 04:10 04:10 WBC 25.2 H RBC 2.80 L Hgb 8.7 L Hct 27.0 L MCV 97 MCH 31.0 MCHC 32.2 RDW 14.3 H Plt Count 468 H Seg Neutrophils % Not Reportable Lymphocytes % Not Reportable Monocytes % Not Reportable Eosinophils % Not Reportable Basophils % Not Reportable Absolute Neutrophils Not Reportable Absolute Lymphocytes Not Reportable Absolute Monocytes Not Reportable Absolute Eosinophils Not Reportable Absolute Basophils Not Reportable VBG pH 7.21 L VBG pCO2 73.9 H* VBG HCO3 28.8 VBG Base Excess -0.3 Sodium 138.4 Potassium 5.2 H Chloride 101 Carbon Dioxide 27 Anion Gap 10 BUN 39 H Creatinine 1.34 H Est GFR ( Amer) 46 L Est GFR (Non-Af Amer) 38 L Glucose 99 Calcium 8.6 Impressions: Venous Doppler Study 04/06/17 14:15 IMPRESSION: NO EVIDENCE OF DVT OR SVT IN THE RIGHT LEG. Lower Extremity CT 04/06/17 17:24 IMPRESSION: No focal deep tissue fluid collections. No soft tissue gas. Diffuse right lower leg cellulitis with skin thickening, and subcutaneous edema. Guidance Fluoroscopy 04/09/17 00:00 IMPRESSION: SUCCESSFUL PLACEMENT OF A 5 FR DUAL LUMEN 41 CM PICC IN THE left basilic VEIN. Interventional Vascular Procedure 04/09/17 00:00 IMPRESSION: SUCCESSFUL PLACEMENT OF A 5 FR DUAL LUMEN 41 CM PICC IN THE left basilic VEIN. PICC Line Insertion 04/09/17 00:00 IMPRESSION: PICC LINE PLACEMENT DESCRIBED. Assessment & Plan - Diagnosis (1) Acute and chronic respiratory failure Qualifiers: Respiratory failure complication: hypoxia and hypercapnia Qualified Code(s) : J96.21 - Acute and chronic respiratory failure with hypoxia; J96.22 - Acute and chronic respiratory failure with hypercapnia Is this a current diagnosis for this admission?: Yes (2) Sepsis affecting skin Is this a current diagnosis for this admission?: Yes (3) Cellulitis of right leg Is this a current diagnosis for this admission?: Yes (4) Acute renal failure superimposed on stage 3 chronic kidney disease Qualifiers: Acute renal failure type: unspecified Qualified Code(s): N17.9 - Acute kidney failure, unspecified; N18.3 - Chronic kidney disease, stage 3 (moderate) Is this a current diagnosis for this admission?: Yes (5) Hyperkalemia Is this a current diagnosis for this admission?: Yes (6) Peripheral vascular disease Is this a current diagnosis for this admission?: Yes (7) COPD (chronic obstructive pulmonary disease) Qualifiers: COPD type: chronic bronchitis Chronic bronchitis type: unspecified Qualified Code(s): J42 - Unspecified chronic bronchitis Is this a current diagnosis for this admission?: Yes (8) Anemia of chronic disease Is this a current diagnosis for this admission?: Yes (9) Anxiety Is this a current diagnosis for this admission?: Yes (10) Essential hypertension Is this a current diagnosis for this admission?: Yes (11) GERD (gastroesophageal reflux disease) Qualifiers: Esophagitis presence: without esophagitis Qualified Code(s): K21.9 - Gastro -esophageal reflux disease without esophagitis Is this a current diagnosis for this admission?: Yes (12) Oxygen dependent Is this a current diagnosis for this admission?: Yes (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 Is this a current diagnosis for this admission?: Yes (14) Pulmonary hypertension, moderate to severe Is this a current diagnosis for this admission?: Yes (15) Chronic systolic (congestive) heart failure Is this a current diagnosis for this admission?: Yes (16) DNR (do not resuscitate) Is this a current diagnosis for this admission?: Yes - Time Time Spent with patient: 35 or more minutes Medications reviewed and adjusted accordingly: Yes - Plan Summary Plan Summary: In discussion with her son who is her only living child, and power of commercial attorney, we discussed her acute and chronic respiratory failure, severe peripheral vascular disease, end-stage COPD, chronic steroid dependence, moderate pulmonary hypertension her current condition. At this time he wishes to transition her to comfort measures. I have discussed this with surgery who is also in agreement with this. At this time, for the convenience of our surgical staff, we will assume care of this patient and guide her comfort measures. Patient has been placed on morphine, Ativan, and atropine.
[2017-04-10] MEDS ORDERED: DAPTOMYCIN 300 MG in NORMAL SALINE 50 ML IV SCH (18:00)
[2017-04-10] MEDS: ATROPINE SULFATE 1% OPH SOLN 5 ML BOTTLE SL SCH (18:22)
[2017-04-10] MEDS ORDERED: METHYLPREDNISOLONE INJ 40 MG/1 ML SDV IV SCH (22:00)
[2017-04-10] MEDS: LORAZEPAM INJ 2 MG/1 ML VIAL IV PRN (23:02)
[2017-04-11] MEDS: ATROPINE SULFATE 1% OPH SOLN 5 ML BOTTLE SL SCH ×5 (00:05→23:31)
[2017-04-11] MEDS: NORMAL SALINE 10 ML SDV (SCHEDULED) IV SCH ×3 (05:08→23:06)
[2017-04-11] MEDS: MORPHINE SULFATE 10 MG/ML INJ IV PRN (05:09)
--- NOTE | 2017-04-11 09:49 | Progress Note ---
Provider Note Provider Note: April 10, 2017: Was notified by respiratory therapy and fishing rod trimmer hours that patient seemed to be in some respiratory distress. Had earlier been on BiPAP, but nursing staff had removed same due to son's request. I went to the patient's bedside with patient noted to be tachypnea, respiratory rate in the mid 30s. When her name is spoken, she does look at speaker but does not reply. 1 AM this morning, I spoke by phone with her son Angel Luis, who is here healthcare power of civil attorney. Patient is a . Somewhat lengthy discussion was had in layperson's terms, confirming that he does wish to continue DNR/DNI status. He also wishes to withhold BiPAP at the present time, but does understand that this may hasten patients . Patient stated he will think the matter over and call me back. I was notified approximately an hour and a half later that patient was actually at the patient's bedside. 2:40 AM, he and I had a second somewhat lengthy layperson discussion in the waiting room on the fifth floor. Again, he realizes that without BiPAP, patient's may be hastened. He is not comfortable proceeding to comfort care. He is decided that BiPAP should be reapplied, realizing that soft physical restraints will be applied. Above discussed with day hospitalist team.
[2017-04-11] MEDS: LORAZEPAM INJ 2 MG/1 ML VIAL IV PRN ×2 (13:29→23:05)
[2017-04-11] MEDS ORDERED: FENTANYL 12 MCG/HR PATCH.TD72 TD ONE (14:30)
--- NOTE | 2017-04-11 19:02 | PDOC PROGRESS REPORT ---
Subjective Progress Note for:: 04/11/17 Subjective:: patient obtunded, tachypnic and writhing son at bedside Physical Exam Vital Signs: Temp Pulse Resp BP Pulse Ox 97.7 F 109 H 34 H 91/58 L 95 04/10/17 12:08 04/10/17 13:45 04/10/17 13:45 04/10/17 12:08 04/10/17 13:45 Intake & Output 04/10/17 04/11/17 04/12/17 06:59 06:59 06:59 Intake Total 1381 687 26 Output Total 545 Balance 836 687 26 Weight 47 kg Exam: General: unarousable, moderate-severe respiratory distress HEENT: AT/NC, ropharynx is dry, pink, no scleral icterus, no conjunctival injection Neck: No JVD, trachea midline Chest: Tachypnea, shallow breathing with retractions, Prolonged exporatory phase , rales, accessory muscle usage CV: Tachycardic, Regular rate and rhythm, normal S1 and S2 Abdomen: Soft, nontender to palpation, nondistended, active bowel sounds; no rebound, rigidity, or guarding Extremities: No cyanosis, + clubbing, trace edema, arthritic changes Skin: Bilateral bandages c/d/i, wound vac in place Results Laboratory Results: 04/10/17 04:10 04/10/17 04:10 04/09/17 10:25 Leg - Right Cellulitis Gram Stain - Final 04/09/17 10:25 Leg - Right Cellulitis Wound Culture - Final Mrsa (Meth Resis Staph Aureus) No Anaerobic Organisms Impressions: Venous Doppler Study 04/06/17 14:15 IMPRESSION: NO EVIDENCE OF DVT OR SVT IN THE RIGHT LEG. Lower Extremity CT 04/06/17 17:24 IMPRESSION: No focal deep tissue fluid collections. No soft tissue gas. Diffuse right lower leg cellulitis with skin thickening, and subcutaneous edema. Guidance Fluoroscopy 04/09/17 00:00 IMPRESSION: SUCCESSFUL PLACEMENT OF A 5 FR DUAL LUMEN 41 CM PICC IN THE left basilic VEIN. Interventional Vascular Procedure 04/09/17 00:00 IMPRESSION: SUCCESSFUL PLACEMENT OF A 5 FR DUAL LUMEN 41 CM PICC IN THE left basilic VEIN. PICC Line Insertion 04/09/17 00:00 IMPRESSION: PICC LINE PLACEMENT DESCRIBED. Assessment & Plan - Diagnosis (1) Acute and chronic respiratory failure Qualifiers: Respiratory failure complication: hypoxia and hypercapnia Qualified Code(s) : J96.21 - Acute and chronic respiratory failure with hypoxia; J96.22 - Acute and chronic respiratory failure with hypercapnia Is this a current diagnosis for this admission?: Yes (2) Sepsis affecting skin Is this a current diagnosis for this admission?: Yes (3) Cellulitis of right leg Is this a current diagnosis for this admission?: Yes (4) Acute renal failure superimposed on stage 3 chronic kidney disease Qualifiers: Acute renal failure type: unspecified Qualified Code(s): N17.9 - Acute kidney failure, unspecified; N18.3 - Chronic kidney disease, stage 3 (moderate) Is this a current diagnosis for this admission?: Yes (5) Hyperkalemia Is this a current diagnosis for this admission?: Yes (6) Peripheral vascular disease Is this a current diagnosis for this admission?: Yes (7) COPD (chronic obstructive pulmonary disease) Qualifiers: COPD type: chronic bronchitis Chronic bronchitis type: unspecified Qualified Code(s): J42 - Unspecified chronic bronchitis Is this a current diagnosis for this admission?: Yes (8) Anemia of chronic disease Is this a current diagnosis for this admission?: Yes (9) Anxiety Is this a current diagnosis for this admission?: Yes (10) Essential hypertension Is this a current diagnosis for this admission?: Yes (11) GERD (gastroesophageal reflux disease) Qualifiers: Esophagitis presence: without esophagitis Qualified Code(s): K21.9 - Gastro -esophageal reflux disease without esophagitis Is this a current diagnosis for this admission?: Yes (12) Oxygen dependent Is this a current diagnosis for this admission?: Yes (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 Will consult palliative care for possible inpatient hospice.
[2017-04-12] MEDS: ATROPINE SULFATE 1% OPH SOLN 5 ML BOTTLE SL SCH ×3 (05:18→19:38)
[2017-04-12] MEDS: LORAZEPAM INJ 2 MG/1 ML VIAL IV PRN (06:50)
[2017-04-12] MEDS: NORMAL SALINE 10 ML SDV (SCHEDULED) IV SCH (10:27)
[2017-04-12] MEDS: MORPHINE SULFATE 10 MG/ML INJ IV PRN ×3 (10:28→19:30)
--- NOTE | 2017-04-12 14:36 | Palliative Consultation Report ---
Consultation From:: PRINCE WAITE Consult Reason: Palliative care - HPI Chief Complaint: weakness HPI: Appreciate consult request for this unfortunate 76 year old woman who is hospitalized with sepsis, renal failure and respiratory failure due to cellulitis and infection from right lower extremity wound. She has had surgery on the leg and has not had a good post op course due to the widespread infection. She required Bipap but could not tolerate it due to the face mask. Now she is comfortable with nasal cannula oxygen and is not restless. She is severely weak and obtunded, unable to eat or drink and rarely responsive at all. She is comfortable at present with current pain meds. had long talk with her son who is only living relative. He is in agreement for comfort measures and tearfully agrees that she doesnt have the strength to fight this infection with other comorbid conditions. She had to have wound vac for wound on her left leg recently. Her toes on right leg are mottled with circulatroy insufficiency, After discussion of options of care with son, he and his would like transport to hospice care center in [place]. Onset: Just prior to arrival Onset/Duration: Gradual, Intermittent Severity: Moderate Associated Symptoms: Shortness of breath, Slow to respond Past Medical History(Consults) - General Information Source: Relative, [facility] Records Home Medications: Aspirin [Aspirin EC] 81 mg PO DAILY 04/06/17 Atorvastatin Calcium [Lipitor 40 mg Tablet] 40 mg PO QHS 04/06/17 Budesonide/Formoterol Fumarate [Symbicort Hfa 160-4.5 Mcg Inhaler 6 gm] 2 puff IH Q12 04/06/17 Clopidogrel Bisulfate [Plavix 75 mg Tablet] 75 mg PO DAILY 04/06/17 Collagenase Clostridium Hist. [Santyl] 1 applic TP DAILYP PRN 04/06/17 Docusate Sodium [Colace 100 mg Capsule] 100 mg PO DAILY 04/06/17 Furosemide [Lasix 20 mg Tablet] 20 mg PO QAM 04/06/17 Hydrocodone/Acetaminophen [[place] 5-325 mg Tablet] 1 tab PO Q6HP PRN 04/06/17 Ipratropium/Albuterol Sulfate [Duoneb 3 ml Ampul] 3 ml NEB RTQIDP PRN 04/06/17 Lisinopril [Prinivil 10 mg Tablet] 10 mg PO QHS 04/06/17 Metoprolol Succinate [Toprol XL 100 mg Tablet] 50 mg PO Q12 04/06/17 Mineral Oil/Petrolatum,White [Eucerin Cream 114 Gm/Jar] 1 applic TP DAILYP PRN 04/06/17 Nitroglycerin [Nitrostat 0.4 mg (1/150 Gr) Tabs 25/Bottle] 1 tab SL Q5MP PRN Pantoprazole Sodium [Protonix] 40 mg PO QAM 04/06/17 Prednisone [Deltasone 5 mg Tablet] 5 mg PO BID 04/06/17 Spironolactone [Aldactone 25 mg Tablet] 25 mg PO DAILY 04/06/17 Allergies/Adverse Reactions: halothane [From Fluothane] Allergy (Severe, Verified 04/06/17 13:35) Severe liver damage ciprofloxacin [From Cipro] Allergy (Intermediate, Verified 04/06/17 13:35) Rash, itch amoxicillin Adverse Reaction (Verified 04/06/17 13:35) - Social History Lives with: Alone, Family Family History: Reviewed & Not Pertinent, Malignancy - FATHER HAD LUNG CANCER, Other - SIB AND CHILD WITH ASTHMA Parental Family History Reviewed: No Children Family History Reviewed: No Sibling(s) Family History Reviewed.: No Smoking Status: Former Smoker Frequency of Alcohol Use: None Hx Recreational Drug Use: No Drugs: None Hx Prescription Drug Abuse: No - Past Medical History Cardiac Medical History: Reports: Hx Atrial Fibrillation, Hx Hypertension, Hx Peripheral Vascular Disease Denies: Hx DVT, Hx Heart Attack, Hx Hypercholesterolemia, Hx Pulmonary Embolism, Hx Heart Murmur Pulmonary Medical History: Reports: Hx Asthma, Hx COPD - O2 DEPENDENT Denies: Hx Respiratory Failure, Hx Sleep Apnea, Hx Tuberculosis Neurological Medical History: Reports: 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). Denies: Hx Seizures Endocrine Medical History: Reports: Hx Diabetes Mellitus Type 1. Denies: Hx Diabetes Mellitus Type 2, Hx Hyperthyroidism, Hx Hypothyroidism Renal/ Medical History: Denies: Hx Peritoneal Dialysis GI Medical History: Reports: Hx Gastroesophageal Reflux Disease, Hx Hepatitis - FROM [place]. Denies: Hx Cirrhosis Musculoskeltal Medical History: Reports Hx Arthritis - osteo Psychiatric Medical History: Denies: Hx Depression Traumatic Medical History: Reports: Hx Fractures - RIGHT HAND Infectious Medical History: Reports: Hx C-Diff - History of, Hx Hepatitis - FROM [place]. Denies: Hx MRSA Hematology: Reports: Anemia Denies: Hemophilia, Sickle Cell Disease - Surgical History Past Surgical History: Reports: Hx Appendectomy, Hx Cardiac Catheterization, Hx Carotid Endarterectomy - Right, Hx Cholecystectomy, Hx Hysterectomy, Hx Urinary Tract Surgery - Bladder tack, Hx Vascular Surgery - Angioplasty right leg, graft in left leg. - Immunizations Immunizations up to date: Yes Ojective:Exam Vital Signs: Temp Pulse Resp BP Pulse Ox 97.7 F 109 H 34 H 91/58 L 95 04/10/17 12:08 04/10/17 13:45 04/10/17 13:45 04/10/17 12:08 04/10/17 13:45 Intake & Output 04/11/17 04/12/17 04/13/17 06:59 06:59 06:59 Intake Total 687 26 Balance 687 26 Objective-Diagnostic Laboratory: 04/10/17 04:10 04/10/17 04:10 04/09/17 10:25 Leg - Right Cellulitis Gram Stain - Final 04/09/17 10:25 Leg - Right Cellulitis Wound Culture - Final Mrsa (Meth Resis Staph Aureus) No Anaerobic Organisms Plan and Recommendation Plan and Recommendation: Long talk with son and DIL. They are happy patient is comfortable. Would like to have patient transported to [facility]. manipulative therapy specialist liason notified to make arrangements. [facility] medical transcription radiology accepted patient for transport. Emotional support offered. DNR [employer] written. Patient stable for transport on 3 L oxygen per [place]. Needs Morphine before transport for comfort. Appreciate opportunity to participate in care and to meet this very dedicated and loving son and DIL. - Time Spent with Patient Time spent with patient: 40 to 60 Minutes Time: 45 min total time with patient/family and consultation
--- NOTE | 2017-04-12 15:01 | PDOC TRANSFER SUMMARY ---
General Admission Date/PCP: 04/09/17 09:50 ELIECER RAMIREZ MD Resuscitation Status: Do Not Resuscitate - Transfer Diagnosis (1) End stage COPD Is this a current diagnosis for this admission?: Yes (2) Acute and chronic respiratory failure Is this a current diagnosis for this admission?: Yes (3) Sepsis affecting skin Is this a current diagnosis for this admission?: Yes (4) Cellulitis of right leg Is this a current diagnosis for this admission?: Yes (5) Acute renal failure superimposed on stage 3 chronic kidney disease Is this a current diagnosis for this admission?: Yes (6) Hyperkalemia Is this a current diagnosis for this admission?: Yes (7) Peripheral vascular disease Is this a current diagnosis for this admission?: Yes (8) COPD (chronic obstructive pulmonary disease) Is this a current diagnosis for this admission?: Yes (9) Anemia of chronic disease Is this a current diagnosis for this admission?: Yes (10) Anxiety Is this a current diagnosis for this admission?: Yes (11) Essential hypertension Is this a current diagnosis for this admission?: Yes (12) GERD (gastroesophageal reflux disease) Is this a current diagnosis for this admission?: Yes (13) Oxygen dependent Is this a current diagnosis for this admission?: Yes (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 Is this a current diagnosis for this admission?: Yes (15) Pulmonary hypertension, moderate to severe Is this a current diagnosis for this admission?: Yes (16) Chronic systolic (congestive) heart failure Is this a current diagnosis for this admission?: Yes (17) DNR (do not resuscitate) Is this a current diagnosis for this admission?: Yes - Transfer Medications Home Medications: Aspirin [Aspirin EC] 81 mg PO DAILY 04/06/17 Atorvastatin Calcium [Lipitor 40 mg Tablet] 40 mg PO QHS 04/06/17 Budesonide/Formoterol Fumarate [Symbicort Hfa 160-4.5 Mcg Inhaler 6 gm] 2 puff IH Q12 04/06/17 Clopidogrel Bisulfate [Plavix 75 mg Tablet] 75 mg PO DAILY 04/06/17 Collagenase Clostridium Hist. [Santyl] 1 applic TP DAILYP PRN 04/06/17 Docusate Sodium [Colace 100 mg Capsule] 100 mg PO DAILY 04/06/17 Furosemide [Lasix 20 mg Tablet] 20 mg PO QAM 04/06/17 Hydrocodone/Acetaminophen [[place] 5-325 mg Tablet] 1 tab PO Q6HP PRN 04/06/17 Ipratropium/Albuterol Sulfate [Duoneb 3 ml Ampul] 3 ml NEB RTQIDP PRN 04/06/17 Lisinopril [Prinivil 10 mg Tablet] 10 mg PO QHS 04/06/17 Metoprolol Succinate [Toprol XL 100 mg Tablet] 50 mg PO Q12 04/06/17 Mineral Oil/Petrolatum,White [Eucerin Cream 114 Gm/Jar] 1 applic TP DAILYP PRN 04/06/17 Nitroglycerin [Nitrostat 0.4 mg (1/150 Gr) Tabs 25/Bottle] 1 tab SL Q5MP PRN Pantoprazole Sodium [Protonix] 40 mg PO QAM 04/06/17 Prednisone [Deltasone 5 mg Tablet] 5 mg PO BID 04/06/17 Spironolactone [Aldactone 25 mg Tablet] 25 mg PO DAILY 04/06/17 Transfer Medications: Current Medications Atropine Sulfate (Atropine 1% Oph Soln 5 Ml) 4 drop SL Q6 TAY Stop: 05/10/17 17:59 Last Admin: 04/12/17 05:18 Dose: Not Given Heparin Sodium (Porcine) (Heparin Flush 10 Unit/Ml 5 Ml Disp.Syrg) 30 unit IV .AFTER EACH USE PRN Stop: 05/09/17 12:34 Last Admin: 04/12/17 10:30 Dose: 30 unit Lorazepam (Ativan Inj 2 Mg/1 Ml Vial) 2 mg IV Q1HP PRN PRN Reason: Anxiety, air hunger Stop: 04/17/17 14:57 Last Admin: 04/12/17 06:50 Dose: 2 mg Morphine Sulfate (Morphine 10 Mg/Ml Inj) 4 mg IV Q1HP PRN PRN Reason: air hunger, pain Stop: 04/17/17 14:56 Last Admin: 04/12/17 10:28 Dose: 4 mg Sodium Chloride (Nacl 0.9% Inj/Pf 10 Ml Sdv) 10 ml IV Q12 TAY Stop: 05/09/17 21:59 Last Admin: 04/12/17 10:27 Dose: 10 ml Sodium Chloride (Nacl 0.9% Inj/Pf 10 Ml Sdv) 10 ml IV .AFTER EACH USE PRN Stop: 05/09/17 12:34 - Allergies Allergies/Adverse Reactions: halothane [From Fluothane] Allergy (Severe, Verified 04/06/17 13:35) Severe liver damage ciprofloxacin [From Cipro] Allergy (Intermediate, Verified 04/06/17 13:35) Rash, itch amoxicillin Adverse Reaction (Verified 04/06/17 13:35) Hospital Course Hospital Course: Patient is a 76-year-old female with known history of severe COPD, moderate pulmonary hypertension, severe peripheral artery disease, who presented to the hospital with cellulitis of her right lower extremity. Patient was found to have MRSA in this wound. She had been started on broad- spectrum coverage by the surgical service. She then was taken to the OR. After return from the OR, patient had respiratory distress likely secondary to her underlying severe COPD. Patient was placed on BiPAP, but did not tolerate this. Patient was breathing more than 35 times a minute and in extremis. Upon discussion with her son, patient was made comfort measures. Surgery was in agreement with this and transfer of her care was to the medical team. At this time, patient continues to require doses of IV Ativan and morphine for her comfort and would be better served at a hospice facility and he was in agreement to transfer her [facility]. We are grateful for the accepting this patient in transfer. Physical Exam Vital Signs: Temp Pulse Resp BP Pulse Ox 97.7 F 109 H 34 H 91/58 L 95 04/10/17 12:08 04/10/17 13:45 04/10/17 13:45 04/10/17 12:08 04/10/17 13:45 Intake & Output 04/11/17 04/12/17 04/13/17 06:59 06:59 06:59 Intake Total 687 26 Balance 687 26 Exam: General: unarousable, moderate respiratory distress HEENT: AT/NC, ropharynx is dry, pink, no scleral icterus, no conjunctival injection Neck: No JVD, trachea midline Chest: Shallow breathing with retractions, Prolonged exporatory phase, accessory muscle usage CV: Tachycardic, Regular rate and rhythm, normal S1 and S2 Abdomen: Soft, nontender to palpation, nondistended, active bowel sounds; no rebound, rigidity, or guarding Extremities: No cyanosis, + clubbing, trace edema, arthritic changes, wound VAC in place Skin: Bilateral bandages c/d/i, wound vac in place Results Laboratory Results: 04/10/17 04:10 04/10/17 04:10 04/09/17 10:25 Leg - Right Cellulitis Gram Stain - Final 04/09/17 10:25 Leg - Right Cellulitis Wound Culture - Final Mrsa (Meth Resis Staph Aureus) No Anaerobic Organisms Impressions: Venous Doppler Study 04/06/17 14:15 IMPRESSION: NO EVIDENCE OF DVT OR SVT IN THE RIGHT LEG. Lower Extremity CT 04/06/17 17:24 IMPRESSION: No focal deep tissue fluid collections. No soft tissue gas. Diffuse right lower leg cellulitis with skin thickening, and subcutaneous edema. Guidance Fluoroscopy 04/09/17 00:00 IMPRESSION: SUCCESSFUL PLACEMENT OF A 5 FR DUAL LUMEN 41 CM PICC IN THE left basilic VEIN. Interventional Vascular Procedure 04/09/17 00:00 IMPRESSION: SUCCESSFUL PLACEMENT OF A 5 FR DUAL LUMEN 41 CM PICC IN THE left basilic VEIN. PICC Line Insertion 04/09/17 00:00 IMPRESSION: PICC LINE PLACEMENT DESCRIBED. Status: Imported from PACS Plan Time Spent: Less than 30 Minutes
[2017-04-17 14:40] LABS: ALDOSTERONE 4.2 ng/dL (0.0-30.0)
== END 2017-04-12 20:11 | disposition hospice, inpatient (51) | DRG 853 ==
LOC: ER 13:28 → EH 18:09 → UNDOADMOB 18:48 → INTOOBSV 18:48 → 5 20:23 → OBSVTOIN 04-09 09:50
PROVIDERS: ADMIT Family Medicine; ATTEND Surgery
PROC: 0JBN0ZZ Excision of Right Lower Leg Subcutaneous Tissue and Fascia, Open Approach (ICD-10-PCS; 2017-04-08)
PROC: 02HV33Z Insertion of Infusion Device into Superior Vena Cava, Percutaneous Approach (ICD-10-PCS; 2017-04-09)
PROC: B548ZZA Ultrasonography of Superior Vena Cava, Guidance (ICD-10-PCS; 2017-04-09)
PROC: 5A09457 Assistance with Respiratory Ventilation, 24-96 Consecutive Hours, Continuous Positive Airway Pressure (ICD-10-PCS; 2017-04-09)
PROC: 0JBN0ZZ Excision of Right Lower Leg Subcutaneous Tissue and Fascia, Open Approach (ICD-10-PCS; principal; 2017-04-09 11:15)
DX: A41.9 Sepsis, unspecified organism (principal); J96.21 Acute and chronic respiratory failure with hypoxia; L03.115 Cellulitis of right lower limb; N17.9 Acute kidney failure, unspecified; I13.0 Hypertensive heart and chronic kidney disease with heart failure and stage 1 through stage 4 chronic kidney disease, or unspecified chronic kidney disease; I50.22 Chronic systolic (congestive) heart failure; I48.91 Unspecified atrial fibrillation; B95.62 Methicillin resistant Staphylococcus aureus infection as the cause of diseases classified elsewhere; I73.9 Peripheral vascular disease, unspecified; Z51.5 Encounter for palliative care; N18.3 Chronic kidney disease, stage 3 (moderate); J44.9 Chronic obstructive pulmonary disease, unspecified; E87.5 Hyperkalemia; K21.9 Gastro-esophageal reflux disease without esophagitis; S81.851A Open bite, right lower leg, initial encounter; W54.0XXA Bitten by dog, initial encounter; G89.29 Other chronic pain; M19.042 Primary osteoarthritis, left hand; M19.041 Primary osteoarthritis, right hand; M54.9 Dorsalgia, unspecified; D64.9 Anemia, unspecified; F41.9 Anxiety disorder, unspecified; I27.2 Other secondary pulmonary hypertension; Z79.52 Long term (current) use of systemic steroids; Y92.9 Unspecified place or not applicable; Z80.1 Family history of malignant neoplasm of trachea, bronchus and lung; Z87.891 Personal history of nicotine dependence; Z88.0 Allergy status to penicillin; Z90.710 Acquired absence of both cervix and uterus; Z79.899 Other long term (current) drug therapy; Z90.49 Acquired absence of other specified parts of digestive tract; Z99.81 Dependence on supplemental oxygen; Z86.73 Personal history of transient ischemic attack (TIA), and cerebral infarction without residual deficits; Z66 Do not resuscitate; Z78.1 Physical restraint status; Z82.5 Family history of asthma and other chronic lower respiratory diseases
CPT/HCPCS: 00400; 36415; 36569; 76937; 77001; 80048; 80053; 81001; 82088; 82533; 82803; 84244; 85025; 85610; 86850; 86900; 86901; 87040; 87070; 87075; 87077; 87186; 87205; 93005; 93010; 93971; 94640; 94660; 96365; 96375; 99285; G0378; G8978-GP; G8979-GP; J0610; J0743; J1100; J1630; J1642; J1650; J1940; J2060; J2250; J2270; J2405; J2704; J3010; J3370; J3490; J7030; J7512; J7620